=== PATIENT | female | born 1955 | race Caucasian/White ===

== ENCOUNTER 2017-04-23 10:59 | Emergency (ER) | payer BC ==
[~2017-04-23] VITALS: Ht 167.6 cm; Wt 90.7 kg
[~2017-04-23 10:59] MED LIST: AMBIEN10 MG; ASPIR 8181 MG; BENICAR5 MG; CYCLOBENZAPRINE10 MG PO; HYDROCODONE BIT1 T11 PO; LEVOFLOXACIN500 MG PO; LIPITOR10 MG; LOPID600 MG; Motrin,Rufen800 MG PO; OXYCODONE AND A1 TAB PO; OXYCONTIN10 MG PO; PROTONIX40 MG PO; VICODIN ES 7501 TA1; VICODIN ES 7501 TAB PO; ZETIA10 MG PO; [UNRECOGNIZED DRUG - OTHER] PO
[2017-04-23] MEDS ORDERED: CYCLOBENZAPRINE10 MG PO (11:11)
[2017-04-23] MEDS ORDERED: METFORMIN HCL500 MG PO (11:11)
[2017-04-23 12:40] LABS: BASO % 0.3 % (0.0-1.0); EOS # 0.2 10*3/uL (0.0-0.4); EOS % 1.6 % (1.0-4.0); HEMATOCRIT 37.5 % (37.0-47.0); HEMOGLOBIN 12.3 g/dl (12.0-16.0); IG # 0.2 10*3/uL (0.0-0.1); LYMPH # 1.9 10*3/uL (1.3-4.4); LYMPH % 20.5 % (27.0-41.0); MEAN CELL VOLUME 91.2 fl (81.0-99.0); MEAN CORPUSCULAR HGB 29.9 pg (27.0-31.0); MEAN CORPUSCULAR HGB CONC 32.8 g/dl (33.0-37.0); MEAN PLATELET VOLUME 10.4 fl (9.6-12.3); MONO # 0.4 10*3/uL (0.1-1.0); MONO % 4.1 % (3.0-9.0); NEUT # 6.6 10*3/uL (2.3-7.9); NEUT % 71.7 % (47.0-73.0); PLATELET COUNT AUTOMATED 229 10*3/uL (130-400); RED BLOOD COUNT 4.11 10*6/uL (4.10-5.10); RED CELL DISTRI WIDTH 14.8 % (0-14.5); WHITE BLOOD COUNT 9.2 10*3/uL (4.8-10.8)
[2017-04-23 12:57] LABS: ALBUMIN 3.8 gm/dl (3.1-4.5); ALKALINE PHOSPHATASE 80 U/L (45-117); BILIRUBIN, TOTAL 0.5 mg/dl (0.2-1.0); BUN 9 mg/dl (7-24); CARBON DIOXIDE 24 mmol/L (21-32); CHLORIDE 104 mmol/L (98-107); EST GLOM FILT AFRICAN AMERICAN > 60 ml/min; GLUCOSE 199 mg/dL (65-99); POTASSIUM 4.2 mmol/L (3.5-5.1); SGOT/AST 37 IU/L (3-35); SGPT/ALT 33 U/L (12-78); SODIUM 138 mmol/L (136-145); TOTAL PROTEIN 7.2 gm/dL (6.4-8.2)
[2017-04-23 12:59] LABS: TROPONIN I < 0.015 ng/ml (<0.045)
== END 2017-04-23 15:47 | disposition home or self-care (01) ==
LOC: ED 10:59
PROVIDERS: Emergency Medicine
DX: G89.29 Other chronic pain (principal); M54.5 Low back pain; M25.511 Pain in right shoulder; M25.512 Pain in left shoulder; M54.2 Cervicalgia; F17.200 Nicotine dependence, unspecified, uncomplicated; E11.9 Type 2 diabetes mellitus without complications; Z90.49 Acquired absence of other specified parts of digestive tract

== ENCOUNTER 2017-09-14 11:23 | Inpatient (IN) | payer BC ==
[~2017-09-14] VITALS: Ht 167.6 cm; Wt 95.5 kg
--- NOTE | ~2017-09-14 | CON ---
[place], [place] REPORT OF CONSULTATION NAME[id number] #: [id number] ROOM: 530 DOCTOR: JOSLYN PATRICKGITA BIRTHDATE: [birth year] DOS: 09/15/2017 GASTROENDOSCOPIC REPORT HISTORY OF PRESENT ILLNESS: This is a 62-year-old patient who has presented with a chief complaint of rectal pain and blood on stool and she diagnosed herself, it felt like when I used to have a rectal abscess. The patient was admitted. The patient has been started on Zosyn and vancomycin. She has had a panel of blood work, lactic acid has been 3.1. Comprehensive metabolic panel, electrolyte, liver all within normal limits. CBC, white blood cell was 10.9, H and H of 12 and 37. Chest x-ray, no radiologic pathology. Urinalysis was unremarkable. CT scan of the abdomen and pelvis, 4 mm nonobstructing right renal calculi totally unrelated pelvic wall. There was no thickening. There was no lymphadenopathy. Urinary bladder was normal. There was no ovarian cyst. There was no pathology mentioned. Lactic acid subsequently dropped to normal. Urine cultures remained unremarkable. Ultrasound of the abdomen again confirms fatty liver. PAST MEDICAL HISTORY: Associated hypertension, diabetes mellitus, COPD, DJD pains, neuropathy, renal calculi. PAST SURGICAL HISTORY: Right knee prosthesis. SOCIAL HISTORY: Aggressive smoker. Nonalcohol consumer. FAMILY HISTORY: Noncontributory. ALLERGIES: To no known medications. MEDICATIONS: Medication list has been reviewed. REVIEW OF SYSTEMS: HEENT: Denies double vision or blurred vision. RESPIRATORY: Denies acute shortness of breath. CARDIOVASCULAR: Denies chest pain. DIGESTIVE SYSTEM: No hematemesis, no hematochezia. Rectal pain temporarily from night. PHYSICAL EXAMINATION: GENERAL: Comfortable patient. HEENT: Head normocephalic, nontraumatic. Mouth and buccal mucosa benign. NECK: Supple, no thyromegaly, no cervical lymphadenopathy. CHEST: Symmetric anatomy, equal expansion. No wheeze, no rhonchi. HEART: Normal sinus rhythm, no gallop, no murmur. ABDOMEN: Soft. No hepato-organomegaly. Bowel sounds present. Slightly obese. EXTREMITIES: No cyanosis, no pedal edema. NEUROLOGIC: Alert, oriented to time, place, person. RECTAL: Examination does not yield any acute findings. There are no external hemorrhoids. I did not see any fissure. [place], [place] REPORT OF CONSULTATION NAME: CHRISTIANO JAIMES UNIT #: [id number] ROOM: 530 DOCTOR: JOSLYN PATRICK,GITA BIRTHDATE: [birth year] IMPRESSION: Rectal pain, etiology unknown. She has been carrying a history of old rectal abscess that she looks to it and she thought that she is similar to that, however, in view of the history of diabetes mellitus, coverage of antibiotic was undertaken. OTHER ADJUNCTIVE DIAGNOSES: Chronic obstructive pulmonary disease, hypertension, neuropathy, renal calculi, all has been recognized. At the present time, she has been started on Zosyn and vancomycin. This, we are going to be adjusting to metronidazole 500 mg q. 8 hours and after that, that can be continued as an outpatient with same prescription for 1 week extra and we are going to discontinue Zosyn and vancomycin coverage and organizing a colonoscopy as an outpatient. GITA JORGENSEN MD CM:CONSTR:REPORT OF CONSULTATION 1449 09/16/17 0452 interface
[~2017-09-14 11:23] MED LIST changes: -BENICAR5 MG; +BENICAR5 MG PO; +LOPID600 M1 PO; -LOPID600 MG; +METFORMIN HCL500 MG PO
[2017-09-14 11:34] VITALS: BP 129/81
[2017-09-14 12:23] LABS: BASO % 0.3 % (0.0-1.0); EOS # 0.2 10*3/uL (0.0-0.4); EOS % 1.7 % (1.0-4.0); HEMATOCRIT 37.4 % (37.0-47.0); LYMPH # 1.8 10*3/uL (1.3-4.4); LYMPH % 16.5 % (27.0-41.0); MEAN CORPUSCULAR HGB 28.6 pg (27.0-31.0); MEAN CORPUSCULAR HGB CONC 32.1 g/dl (33.0-37.0); MEAN PLATELET VOLUME 10.6 fl (9.6-12.3); MONO # 0.4 10*3/uL (0.1-1.0); MONO % 3.6 % (3.0-9.0); NEUT # 8.4 10*3/uL (2.3-7.9); PLATELET COUNT AUTOMATED 264 10*3/uL (130-400); RED CELL DISTRI WIDTH 14.7 % (0-14.5); WHITE BLOOD COUNT 10.9 10*3/uL (4.8-10.8)
[2017-09-14 12:41] LABS: ALKALINE PHOSPHATASE 103 U/L (45-117); BUN 14 mg/dl (7-24); CHLORIDE 103 mmol/L (98-107); CREATININE 0.86 mg/dL (0.55-1.02); POTASSIUM 4.4 mmol/L (3.5-5.1); SGOT/AST 52 IU/L (3-35); SGPT/ALT 44 U/L (12-78); SODIUM 137 mmol/L (136-145); TOTAL PROTEIN 7.7 gm/dL (6.4-8.2)
[2017-09-14 12:42] LABS: TROPONIN I < 0.015 ng/ml (<0.045)
[2017-09-14 14:15] LABS: BILIRUBIN NEGATIVE (NEGATIVE); BLOOD NEGATIVE (NEGATIVE); CLARITY CLEAR (CLEAR); COLOR YELLOW (YELLOW); GLUCOSE NEGATIVE (NEGATIVE); KETONE NEGATIVE (NEGATIVE); LEUKO ESTERASE TRACE (NEGATIVE); NITRITE NEGATIVE (NEGATIVE); UROBILINOGEN 0.2 E.U./dl (0.2-1.0)
[2017-09-14 14:23] LABS: BACTERIA TRACE; RBC 0-2 rbc/hpf (0-2)
--- NOTE | 2017-09-14 14:51 | NUR ---
PATIENT WITH ZOSYN AND SALINE INFUSIONG AT THE TIME OF ADMISSION
--- NOTE | 2017-09-14 15:17 | NUR ---
A 62, admitted to , under the services of LEONA Ji DO with a diagnosis of SEPTICEMIA, RECTAL ABCESS. Chief complaint is SEPTICEMIA RECTAL ABCESS. Patient arrived via bed from ER. Monitor applied. Initial assessment completed. Vital signs taken and recorded. LEONA JI DO notified of admission to the unit. Orders received. See assessment for past medical history, medications and allergies. Patient and/or family oriented to unit. [facility] visitation policy reviewed. Clothing/patient valuable form completed. GIANCARLO HODGES
[2017-09-14] MEDS ORDERED: NORCO 7.5-3251 EACH PO (15:43)
--- NOTE | 2017-09-14 16:00 | NUR ---
DR. OGDEN NOTIFIED OF COMPLETED MEDRX AND PT PUT ON ADA [address] OGDEN[address] NO OTHER ORDERS AT THIS TIME.
[2017-09-14 16:15] VITALS: BP 129/81
--- NOTE | 2017-09-14 17:16 | NUR ---
NOTIFIED OF NO ORDERS OF NOW. ORDERS COMING SOON PER DR. Ruiz
--- NOTE | 2017-09-14 17:58 | NUR ---
DR. JORGENSEN NOTIFIED OF CONSULT. NO NEW ORDERS AT THIS TIME. HE WILL BE IN TO SEE PT IN THE MORNING. HE STATED IF CBC IS FINE IN THE MORNING, HE WILL SEE ABOUT ANTIBIOTIC THERAPY OUTPT. WILL CONINUE TO MONITOR PT.
[2017-09-14 20:00] VITALS: BP 154/78
--- NOTE | 2017-09-14 20:20 | NUR ---
PT MEDICATED WITH MORPHINE FOR COMPLAINTS OF RECTAL PAIN. WILL CONTINUE TO MONITOR EFFECTIVENESS.
--- NOTE | 2017-09-14 20:40 | NUR ---
SPOKE WITH DR. RICH ABOUT A NICOTROL INHALER FOR PT, SHE IS A TWO PACK PER DAY SMOKER AND NOT TAKING ANY OTHER NICOTINE PRODUCTS.
[2017-09-15] VITALS: BP 105/56
--- NOTE | 2017-09-15 03:15 | NUR ---
PT MEDICATED WITH MORPHINE FOR C/O RECTAL PAIN. WILL MONITOR FOR EFFECTIVENESS
--- NOTE | 2017-09-15 03:45 | NUR ---
MEDICATION EFFECTIVE PER PT, ALSO STATED RELIEF FROM NEUROPATHY.
[2017-09-15 07:01] LABS: BASO % 0.4 % (0.0-1.0); EOS # 0.2 10*3/uL (0.0-0.4); EOS % 2.1 % (1.0-4.0); HEMATOCRIT 34.2 % (37.0-47.0); HEMOGLOBIN 10.9 g/dl (12.0-16.0); LYMPH # 2.1 10*3/uL (1.3-4.4); LYMPH % 25.9 % (27.0-41.0); MEAN CELL VOLUME 91.2 fl (81.0-99.0); MEAN CORPUSCULAR HGB 29.1 pg (27.0-31.0); MEAN CORPUSCULAR HGB CONC 31.9 g/dl (33.0-37.0); MEAN PLATELET VOLUME 10.5 fl (9.6-12.3); MONO # 0.3 10*3/uL (0.1-1.0); NEUT # 5.3 10*3/uL (2.3-7.9); NEUT % 66.3 % (47.0-73.0); PLATELET COUNT AUTOMATED 223 10*3/uL (130-400); RED BLOOD COUNT 3.75 10*6/uL (4.10-5.10); RED CELL DISTRI WIDTH 15.1 % (0-14.5); WHITE BLOOD COUNT 7.9 10*3/uL (4.8-10.8)
[2017-09-15 07:32] LABS: ALBUMIN 3.3 gm/dl (3.1-4.5); ALKALINE PHOSPHATASE 93 U/L (45-117); BUN 13 mg/dl (7-24); CHLORIDE 106 mmol/L (98-107); CHOLESTEROL 104 mg/dL (<200); CREATININE 0.84 mg/dL (0.55-1.02); HDL CHOLESTEROL 37 mg/dl (40-60); LDL CHOLESTEROL 30 mg/dL (9-159); PHOSPHOROUS 4.6 mg/dL (2.5-4.9); POTASSIUM 4.6 mmol/L (3.5-5.1); SGOT/AST 68 IU/L (3-35); SGPT/ALT 48 U/L (12-78); SODIUM 140 mmol/L (136-145); TOTAL PROTEIN 6.7 gm/dL (6.4-8.2); TRIGLYCERIDES 184 mg/dl (<150); VLDL CHOLESTEROL 37 mg/dL (6-40)
[2017-09-15 08:00] VITALS: BP 159/79
--- NOTE | 2017-09-15 09:46 | NUR ---
Kiln Car Unloader in to talk to patient. Patient states lives at home with . There are few steps in the home. Physician: philip borja [facility] Home health services: none Patient's level of ADLs: INDEPENDENT Patient has working utilities: all working DME: cane Follow-up physician's appointment after d/c: will be made by hospitalist nurse director upon discharge Does patient want to access PORTAL?: no Discharge plan discussed with patient, patient lives at home with , states she gets around fine, drives, patient states she has a cane to use if needed, patient states she will be going home when able and denies any home needs. PAULINA ALEXANDRE
[2017-09-15 12:00] VITALS: BP 147/68
[2017-09-15] MEDS ORDERED: FLAGYL500 MG PO (15:13)
--- NOTE | 2017-09-15 16:39 | NUR ---
Discharge instructions reviewed with patient/family. Patient receptive and verbalizes understanding. Follow-up care arranged. Written instructions given to patient/family. NANCI SONI
== END 2017-09-15 16:39 | disposition home or self-care (01) | DRG 872 ==
LOC: ED 11:23 → EDHOLD 14:10 → 5E 14:10
PROVIDERS: Hospitalist; Nurse Practitioner; ADMIT Emergency Medicine
DX: A41.9 Sepsis, unspecified organism (principal); E11.40 Type 2 diabetes mellitus with diabetic neuropathy, unspecified; K61.1 Rectal abscess; E11.65 Type 2 diabetes mellitus with hyperglycemia; R65.20 Severe sepsis without septic shock; M54.5 Low back pain; N20.0 Calculus of kidney; M19.90 Unspecified osteoarthritis, unspecified site; R10.9 Unspecified abdominal pain; G89.29 Other chronic pain; J44.9 Chronic obstructive pulmonary disease, unspecified; F17.210 Nicotine dependence, cigarettes, uncomplicated; I10 Essential (primary) hypertension; E78.5 Hyperlipidemia, unspecified; E66.9 Obesity, unspecified; M54.2 Cervicalgia; Z71.6 Tobacco abuse counseling; Z68.32 Body mass index [BMI] 32.0-32.9, adult

== ENCOUNTER 2018-01-25 02:09 | Inpatient (IN) | payer BC ==
[~2018-01-25] VITALS: Ht 167.6 cm; Wt 92.8 kg
[2018-01-25] VITALS (8 sets, daily range): BP systolic 123–153; BP diastolic 55–77
--- NOTE | ~2018-01-25 | CON ---
[place], [place] REPORT OF CONSULTATION [id number] UNIT #: [id number] ROOM: 428 DOCTOR: MARYANA AMBRIZ DPM BIRTHDATE: [birth year] DOS: 01/25/2018 SUBJECTIVE: Patient seen with chief complaint of elongated, thickened nails of both feet and red and tender feet, bilateral. The patient is a 63-year-old diabetic patient. PAST MEDICAL HISTORY: COPD, diabetes, essential primary hypertension, GERD, hepatic steatosis, hepatosplenomegaly, history of rectal abscess, hyperlipidemia, insomnia, lumbago, nephrolithiasis, neuropathy, obesity, onychomycosis, rectal abscess, tobacco abuse, uncontrolled diabetes and vitamin ____ deficiency. PAST SURGICAL HISTORY: Cervical polypectomy, section, cholecystectomy, colonoscopy, endometrial biopsy, hemorrhoidectomy and right knee replacement. SOCIAL HISTORY: History of smoking. Denies illicit drug use or social alcohol use. FAMILY HISTORY: Father of Alzheimer disease and colon cancer. Mother at age 71 of [place]. ALLERGIES: Denies. LOWER EXTREMITY EXAMINATION: Pedal pulses palpable. Decreased hair growth, nail thickening, pigmentary discoloration, temperature changes, edema, paresthesia and burning bilateral foot, tingling sensation bilateral, erythema and moccasin appearance plantar aspect bilateral foot extending interdigitally consistent with tinea pedis. Crumbly thickened yellow nails 1 through 5 bilateral causing discomfort. ASSESSMENT: Onychomycosis, tinea pedis, dermatitis bilateral foot, diabetes with peripheral vascular disease and diabetic neuropathy. PLAN: Evaluation and management. Debrided nails 1 through 5 bilateral. The patient is already on Lamisil and Lotrisone cream. Continue Lotrisone cream for 2 weeks and we will reassess the patient at the office in 2 weeks for followup of the tinea infection. MARYANA AMBRIZ DPM CM:CONSTR:REPORT OF CONSULTATION 1332 01/26/18 0245 interface
[~2018-01-25 02:09] MED LIST changes: +FLAGYL500 MG PO; +NORCO 7.5-3251 EACH PO
[2018-01-25 02:27] LABS: BILIRUBIN 1+ (NEGATIVE); BLOOD NEGATIVE (NEGATIVE); CLARITY SL CLOUDY (CLEAR); COLOR YELLOW (YELLOW); GLUCOSE NEGATIVE (NEGATIVE); KETONE TRACE (NEGATIVE); LEUKO ESTERASE 1+ (NEGATIVE); NITRITE NEGATIVE (NEGATIVE); UROBILINOGEN 0.2 E.U./dl (0.2-1.0)
[2018-01-25 02:41] LABS: BASO % 0.2 % (0.0-1.0); EOS # 0.2 10*3/uL (0.0-0.4); EOS % 1.2 % (1.0-4.0); HEMATOCRIT 37.8 % (37.0-47.0); HEMOGLOBIN 12.2 g/dl (12.0-16.0); LYMPH # 2.1 10*3/uL (1.3-4.4); LYMPH % 17.3 % (27.0-41.0); MEAN CELL VOLUME 84.8 fl (81.0-99.0); MEAN CORPUSCULAR HGB 27.4 pg (27.0-31.0); MEAN CORPUSCULAR HGB CONC 32.3 g/dl (33.0-37.0); MEAN PLATELET VOLUME 10.6 fl (9.6-12.3); MONO # 0.6 10*3/uL (0.1-1.0); MONO % 4.9 % (3.0-9.0); NEUT # 9.2 10*3/uL (2.3-7.9); NEUT % 75.6 % (47.0-73.0); PLATELET COUNT AUTOMATED 276 10*3/uL (130-400); RED BLOOD COUNT 4.46 10*6/uL (4.10-5.10); RED CELL DISTRI WIDTH 14.7 % (0-14.5); WHITE BLOOD COUNT 12.1 10*3/uL (4.8-10.8)
[2018-01-25 02:51] LABS: EPITHELIAL CELLS 40-45
[2018-01-25 02:52] LABS: BACTERIA 1+; WBC 16-20 wbc/hpf (0-5)
[2018-01-25 03:00] LABS: ALBUMIN 3.8 gm/dl (3.1-4.5); ALKALINE PHOSPHATASE 89 U/L (45-117); BUN 13 mg/dl (7-24); CHLORIDE 105 mmol/L (98-107); CREATININE 0.83 mg/dL (0.55-1.02); LIPASE 304 U/L (73-393); POTASSIUM 3.8 mmol/L (3.5-5.1); SGOT/AST 20 IU/L (3-35); SGPT/ALT 26 U/L (12-78); SODIUM 137 mmol/L (136-145); TOTAL PROTEIN 7.2 gm/dL (6.4-8.2)
[2018-01-25 05:44] LABS: CHOLESTEROL 116 mg/dL (<200); HDL CHOLESTEROL 32 mg/dl (40-60); LDL CHOLESTEROL 40 mg/dL (9-159); PHOSPHOROUS 3.7 mg/dL (2.5-4.9); TRIGLYCERIDES 221 mg/dl (<150); VLDL CHOLESTEROL 44 mg/dL (6-40)
[2018-01-25 05:45] LABS: TROPONIN I < 0.015 ng/ml (<0.045)
[2018-01-25 05:50] LABS: THYROID STIM HORMONE (HS) 0.638 uIU/ml (0.358-4.75)
[2018-01-25 07:01] LABS: VITAMIN D, 25-HYDROXY 13.9 ng/mL (30-100)
[2018-01-26] VITALS: BP 121/50
[2018-01-26 08:00] VITALS: BP 144/66
[2018-01-26] MEDS ORDERED: ATHLETE'S FOOT15 GM T (10:40)
[2018-01-26] MEDS ORDERED: VITAMIN D-32000 UNI1 PO (10:40)
[2018-01-26] MEDS ORDERED: Aquaphor T (10:40)
[2018-01-26] MEDS ORDERED: NEURONTIN300 MG PO (10:40)
[2018-01-26] MEDS ORDERED: CIPRO500 MG PO (10:41)
== END 2018-01-26 11:40 | disposition home or self-care (01) | DRG 872 ==
LOC: ED 02:09 → 4E 03:58 → EDHOLD 03:58 → 4E 05:22
PROVIDERS: Emergency Medicine Emergency Medical Services; Internal Medicine
PROC: 0HBRXZZ Excision of Toe Nail, External Approach (ICD-10-PCS; principal; 2018-01-25)
DX: A41.9 Sepsis, unspecified organism (principal); E87.2 Acidosis; E11.40 Type 2 diabetes mellitus with diabetic neuropathy, unspecified; E11.51 Type 2 diabetes mellitus with diabetic peripheral angiopathy without gangrene; R16.2 Hepatomegaly with splenomegaly, not elsewhere classified; N39.0 Urinary tract infection, site not specified; E11.65 Type 2 diabetes mellitus with hyperglycemia; K76.0 Fatty (change of) liver, not elsewhere classified; B35.1 Tinea unguium; B35.3 Tinea pedis; D72.810 Lymphocytopenia; J44.9 Chronic obstructive pulmonary disease, unspecified; R65.20 Severe sepsis without septic shock; N20.0 Calculus of kidney; E86.0 Dehydration; K64.4 Residual hemorrhoidal skin tags; I10 Essential (primary) hypertension; G89.29 Other chronic pain; E78.5 Hyperlipidemia, unspecified; E53.8 Deficiency of other specified B group vitamins; M54.5 Low back pain; K21.9 Gastro-esophageal reflux disease without esophagitis; G47.00 Insomnia, unspecified; L30.9 Dermatitis, unspecified; Z96.651 Presence of right artificial knee joint; E66.9 Obesity, unspecified; Z79.84 Long term (current) use of oral hypoglycemic drugs; Z71.6 Tobacco abuse counseling; Z79.899 Other long term (current) drug therapy; Z90.49 Acquired absence of other specified parts of digestive tract; Z98.51 Tubal ligation status; Z82.49 Family history of ischemic heart disease and other diseases of the circulatory system; Z80.0 Family history of malignant neoplasm of digestive organs; Z82.0 Family history of epilepsy and other diseases of the nervous system; Z68.32 Body mass index [BMI] 32.0-32.9, adult

== ENCOUNTER 2018-03-15 22:11 | Inpatient (IN) | payer BC ==
[~2018-03-15] VITALS: Ht 167.6 cm; Wt 90.7 kg
[~2018-03-15 22:11] MED LIST changes: +ATHLETE'S FOOT15 GM T; +Aquaphor T; +CIPRO500 MG PO; +NEURONTIN300 MG PO; +VITAMIN D-32000 UNI1 PO
[2018-03-15 22:18] VITALS: BP 161/74
[2018-03-15 22:59] LABS: BASO % 0.3 % (0.0-1.0); EOS # 0.2 10*3/uL (0.0-0.4); EOS % 1.2 % (1.0-4.0); HEMATOCRIT 40.3 % (37.0-47.0); HEMOGLOBIN 12.4 g/dl (12.0-16.0); LYMPH # 2.8 10*3/uL (1.3-4.4); LYMPH % 20.4 % (27.0-41.0); MEAN CELL VOLUME 87.2 fl (81.0-99.0); MEAN CORPUSCULAR HGB 26.8 pg (27.0-31.0); MEAN CORPUSCULAR HGB CONC 30.8 g/dl (33.0-37.0); MEAN PLATELET VOLUME 10.8 fl (9.6-12.3); MONO # 0.6 10*3/uL (0.1-1.0); MONO % 4.4 % (3.0-9.0); NEUT % 72.7 % (47.0-73.0); PLATELET COUNT AUTOMATED 319 10*3/uL (130-400); RED BLOOD COUNT 4.62 10*6/uL (4.10-5.10); RED CELL DISTRI WIDTH 15.7 % (0-14.5); WHITE BLOOD COUNT 13.8 10*3/uL (4.8-10.8)
[2018-03-15 23:17] LABS: ALKALINE PHOSPHATASE 102 U/L (45-117); BUN 11 mg/dl (7-24); CHLORIDE 106 mmol/L (98-107); CREATININE 0.91 mg/dL (0.55-1.02); LIPASE 435 U/L (73-393); SGOT/AST 20 IU/L (3-35); SGPT/ALT 30 U/L (12-78); SODIUM 139 mmol/L (136-145)
[2018-03-15 23:18] LABS: TROPONIN I < 0.015 ng/ml (<0.045)
[2018-03-15 23:24] LABS: URINE AMPHETAMINES < 1000 (1000ng/ml); URINE BARBITURATES < 200 (200ng/ml); URINE BENZODIAZEPINES < 200 (200ng/ml); URINE CANNABINOIDS (THC) < 50 (50ng/ml); URINE COCAINE < 300 (300ng/ml); URINE METHADONE < 300 (300ng/ml); URINE OPIATES < 300 (300ng/ml)
[2018-03-15 23:25] LABS: URINE PHENCYCLIDINE < 25 (25ng/ml)
[2018-03-16] VITALS (8 sets, daily range): BP systolic 117–157; BP diastolic 44–67
[2018-03-16 01:55] LABS: BILIRUBIN NEGATIVE (NEGATIVE); BLOOD NEGATIVE (NEGATIVE); CLARITY SL CLOUDY (CLEAR); COLOR YELLOW (YELLOW); GLUCOSE NEGATIVE (NEGATIVE); KETONE 1+ (NEGATIVE); LEUKO ESTERASE 2+ (NEGATIVE); NITRITE NEGATIVE (NEGATIVE); PH 5.5 (5.0-9.0); UROBILINOGEN 0.2 E.U./dl (0.2-1.0)
[2018-03-16 02:05] LABS: BACTERIA 2+; EPITHELIAL CELLS TNTC; WBC 21-30 wbc/hpf (0-5)
[2018-03-16] MEDS ORDERED: VICODIN ES 7.51 EACH PO (02:59)
[2018-03-16] MEDS ORDERED: OMEPRAZOLE40 MG PO (04:13)
[2018-03-16 06:35] LABS: BASO % 0.4 % (0.0-1.0); EOS # 0.2 10*3/uL (0.0-0.4); EOS % 1.8 % (1.0-4.0); HEMOGLOBIN 10.4 g/dl (12.0-16.0); LYMPH # 2.2 10*3/uL (1.3-4.4); LYMPH % 24.7 % (27.0-41.0); MEAN CELL VOLUME 88.3 fl (81.0-99.0); MEAN CORPUSCULAR HGB 26.9 pg (27.0-31.0); MEAN CORPUSCULAR HGB CONC 30.5 g/dl (33.0-37.0); MEAN PLATELET VOLUME 11.1 fl (9.6-12.3); MONO # 0.4 10*3/uL (0.1-1.0); MONO % 4.6 % (3.0-9.0); NEUT % 67.4 % (47.0-73.0); PLATELET COUNT AUTOMATED 241 10*3/uL (130-400); RED BLOOD COUNT 3.86 10*6/uL (4.10-5.10); RED CELL DISTRI WIDTH 15.7 % (0-14.5); WHITE BLOOD COUNT 8.9 10*3/uL (4.8-10.8)
[2018-03-16 06:43] LABS: HEMATOCRIT 34.1 % (37.0-47.0)
[2018-03-16 07:01] LABS: CHLORIDE 110 mmol/L (98-107); POTASSIUM 3.9 mmol/L (3.5-5.1); SODIUM 142 mmol/L (136-145)
[2018-03-16 07:13] LABS: ALBUMIN 3.3 gm/dl (3.1-4.5); ALKALINE PHOSPHATASE 86 U/L (45-117); BUN 12 mg/dl (7-24); CHOLESTEROL 70 mg/dL (<200); CREATININE 0.72 mg/dL (0.55-1.02); HDL CHOLESTEROL 26 mg/dl (40-60); LDL CHOLESTEROL 16 mg/dL (9-159); SGOT/AST 21 IU/L (3-35); SGPT/ALT 26 U/L (12-78); TOTAL PROTEIN 6.4 gm/dL (6.4-8.2); TRIGLYCERIDES 138 mg/dl (<150); VLDL CHOLESTEROL 28 mg/dL (6-40)
[2018-03-16 07:29] LABS: PHOSPHOROUS 3.6 mg/dL (2.5-4.9)
[2018-03-16 07:31] LABS: VITAMIN D, 25-HYDROXY 32.1 ng/mL (30-100)
[2018-03-17] VITALS: BP 130/50
[2018-03-17 08:00] VITALS: BP 105/62; BP 153/63
[2018-03-17 08:38] LABS: BUN 9 mg/dl (7-24); CHLORIDE 107 mmol/L (98-107); POTASSIUM 4.2 mmol/L (3.5-5.1); SODIUM 141 mmol/L (136-145)
[2018-03-17 12:00] VITALS: BP 151/62
[2018-03-17] MEDS ORDERED: GLYBURIDE1.5 MG PO (13:17)
[2018-03-17] MEDS ORDERED: CIPRO500 MG PO (13:17)
[2018-03-17] MEDS ORDERED: BENICAR20 MG PO (13:17)
[2018-03-17] MEDS ORDERED: B12,B-12,B 12500 MC1 PO (13:17)
== END 2018-03-17 14:59 | disposition home or self-care (01) | DRG 872 ==
LOC: ED 22:11 → EDHOLD 03-16 02:25 → 5E 03-16 02:25
PROVIDERS: Emergency Medicine Emergency Medical Services; Internal Medicine; Internal Medicine Hospice and Palliative Medicine
DX: A41.9 Sepsis, unspecified organism (principal); E11.40 Type 2 diabetes mellitus with diabetic neuropathy, unspecified; N39.0 Urinary tract infection, site not specified; E11.65 Type 2 diabetes mellitus with hyperglycemia; D72.810 Lymphocytopenia; N20.0 Calculus of kidney; R65.20 Severe sepsis without septic shock; R10.9 Unspecified abdominal pain; R79.82 Elevated C-reactive protein (CRP); E66.9 Obesity, unspecified; J44.9 Chronic obstructive pulmonary disease, unspecified; I10 Essential (primary) hypertension; E78.5 Hyperlipidemia, unspecified; Z96.651 Presence of right artificial knee joint; M54.42 Lumbago with sciatica, left side; M54.41 Lumbago with sciatica, right side; K64.4 Residual hemorrhoidal skin tags; E53.8 Deficiency of other specified B group vitamins; E55.9 Vitamin D deficiency, unspecified; K21.9 Gastro-esophageal reflux disease without esophagitis; G47.00 Insomnia, unspecified; Z71.6 Tobacco abuse counseling; Z72.0 Tobacco use; Z87.440 Personal history of urinary (tract) infections; Z90.49 Acquired absence of other specified parts of digestive tract; Z98.51 Tubal ligation status; Z82.49 Family history of ischemic heart disease and other diseases of the circulatory system; Z82.0 Family history of epilepsy and other diseases of the nervous system; Z80.0 Family history of malignant neoplasm of digestive organs; Z79.899 Other long term (current) drug therapy; Z68.32 Body mass index [BMI] 32.0-32.9, adult; Z79.84 Long term (current) use of oral hypoglycemic drugs

== ENCOUNTER 2018-09-11 07:19 | Inpatient (IN) | payer MEDICARE, BC ==
[2018-09-11] VITALS (8 sets, daily range): BP systolic 113–148; BP diastolic 37–97
[~2018-09-11] VITALS: Ht 167.6 cm; Wt 93.9 kg
--- NOTE | ~2018-09-11 | PROC NOTE ---
[place], [place] PROCEDURE NOTE [id number] UN[facility] #: [id number] ROOM: 412 DOCTOR: GITA JORGENSEN MD BIRTHDATE: [birth year] DOS: 09/12/2018 INDICATIONS: The patient has presented with anemia, undergoing investigation, blood on stool. PROCEDURE: Today's procedure part of investigation is colonoscopy. PREMEDICATION: Propofol. SCOPE: Olympus forward-viewing colonoscope 10L video. REPORT: After putting the patient in left lateral position and application of lubricant to the scope, the scope was introduced; thereafter, under direct visualization, I advanced through the length of colon without difficulty. Colon mucosa and vascularity was carefully examined. Base of the cecum explored, appendiceal orifice identified, ileocecal valve was defined. No acute pathology seen otherwise. Air was suctioned out. The patient was extubated and tolerated the procedure well. IMPRESSION: Normal colonoscopic examination. PLAN: High fiber diet. ACTIVITY: Ad armin. FOLLOWUP: As outpatient. The cause of the anemia is not in the colon. GITA JORGENSEN MD CM:PROCNOTE:PROCEDURE NOTE [id number] GITA JORGENSEN MD
--- NOTE | ~2018-09-11 | CON ---
[place], [place] REPORT OF CONSULTATION NAME: CHRISTIANO JAIMES UNIT #: [id number] ROOM: 412 DOCTOR: JOSLYN PATRICKGITA BIRTHDATE: [birth year] DOS: 09/12/2018 GASTROENDOSCOPIC REPORT HISTORY OF PRESENT ILLNESS: The patient is 63 years old who has presented with nonspecific abdominal pain, complaining that she has seen blood in the stool and she had a white blood cells of 10, borderline H of 10 and 34, microcytic indices. Her INR was 1.1. Comprehensive metabolic panel, BUN and creatinine 16 and 0.9. Electrolytes were balanced. Liver function test normal. CT scan of the abdomen and pelvis was done, nonobstructing right renal stone, fatty liver. H and H dropped to 9.9 and 33. Urine culture, no growth. I was called for colonoscopy. PAST MEDICAL HISTORY: GI bleed, COPD, hypertension, hepatic steatosis, hepatosplenomegaly. PAST SURGICAL HISTORY: Cholecystectomy, , endometrial biopsies, hemorrhoidectomy, right knee prosthesis, cervical polypectomy. SOCIAL HISTORY: Smoker and social alcohol consumer. FAMILY HISTORY: Noncontributory. ALLERGIES: Allergies to no known medications. MEDICATIONS: List reviewed. REVIEW OF SYSTEMS: HEENT: Denies double vision, blurred vision. RESPIRATORY: Denies acute shortness of breath; however, chronically short of breath, cough. DIGESTIVE: No hematemesis, some blood on the stool, toilet tissue. PHYSICAL EXAMINATION: VITAL SIGNS: Stable. HEENT: Head normocephalic, nontraumatic. Mouth and buccal mucosa benign. NECK: Supple. No thyromegaly, no cervical lymphadenopathy. CHEST: Symmetric anatomy, COPD pattern. Decreased air entry in general. HEART: Normal sinus rhythm, no gallop, no murmur. ABDOMEN: Soft. No hepato-organomegaly. Bowel sounds present. No pulsatile mass. EXTREMITIES: No cyanosis, no pedal edema. NEUROLOGIC: Alert, oriented to time, place, and person. LABORATORY DATA: Reviewed. Records reviewed. IMPRESSION: Blood in stool, anemia. PLAN: We are going to proceed with colonoscopic evaluation for microcytic anemia. [place], [place] REPORT OF CONSULTATION NAME: CHRISTIANO JAIMES UNIT #: [id number] ROOM: [facility] DOCTOR: GITA JORGENSEN MD BIRTHDATE: [birth year] GITA JORGENSEN MD CM:CONSTR:REPORT OF CONSULTATION 1553 09/13/18 0212 interface
[~2018-09-11 07:19] MED LIST changes: +B12,B-12,B 12500 MC1 PO; +BENICAR20 MG PO; +CHLORZOXAZONE500 M2 PO; +GLYBURIDE1.5 MG PO; +OMEPRAZOLE40 MG PO; +PREDNISONE10 MG PO; +VICODIN ES 7.51 EACH PO
[2018-09-11 07:55] LABS: BASO # 0.1 10*3/uL (0.0-0.1); BASO % 0.4 % (0.0-1.0); EOS # 0.4 10*3/uL (0.0-0.4); EOS % 3.3 % (1.0-4.0); HEMATOCRIT 34.6 % (37.0-47.0); HEMOGLOBIN 10.8 g/dl (12.0-16.0); LYMPH # 2.1 10*3/uL (1.3-4.4); LYMPH % 17.4 % (27.0-41.0); MEAN CELL VOLUME 81.6 fl (81.0-99.0); MEAN CORPUSCULAR HGB 25.5 pg (27.0-31.0); MEAN CORPUSCULAR HGB CONC 31.2 g/dl (33.0-37.0); MEAN PLATELET VOLUME 10.8 fl (9.6-12.3); MONO # 0.5 10*3/uL (0.1-1.0); MONO % 3.8 % (3.0-9.0); NEUT # 8.9 10*3/uL (2.3-7.9); NEUT % 73.8 % (47.0-73.0); PLATELET COUNT AUTOMATED 284 10*3/uL (130-400); RED BLOOD COUNT 4.24 10*6/uL (4.10-5.10); RED CELL DISTRI WIDTH 16.9 % (0-14.5)
[2018-09-11 08:04] LABS: ACT PARTIAL THROMBO TIME 26.8 SECONDS (20.8-31.5)
[2018-09-11 08:13] LABS: ALBUMIN 3.6 gm/dl (3.1-4.5); ALKALINE PHOSPHATASE 97 U/L (45-117); BUN 16 mg/dl (7-24); CHLORIDE 106 mmol/L (98-107); CREATININE 0.97 mg/dL (0.55-1.02); POTASSIUM 3.9 mmol/L (3.5-5.1); SGOT/AST 32 IU/L (3-35); SGPT/ALT 26 U/L (12-78); SODIUM 137 mmol/L (136-145); TOTAL PROTEIN 7.4 gm/dL (6.4-8.2)
[2018-09-11 08:15] LABS: BILIRUBIN NEGATIVE (NEGATIVE); BLOOD NEGATIVE (NEGATIVE); CLARITY SL CLOUDY (CLEAR); COLOR YELLOW (YELLOW); GLUCOSE NEGATIVE (NEGATIVE); KETONE NEGATIVE (NEGATIVE); LEUKO ESTERASE 1+ (NEGATIVE); NITRITE NEGATIVE (NEGATIVE); PH 5.5 (5.0-9.0); UROBILINOGEN 0.2 E.U./dl (0.2-1.0)
[2018-09-11 08:26] LABS: BACTERIA 1+; EPITHELIAL CELLS 20-25; WBC 21-30 wbc/hpf (0-5)
[2018-09-11 08:27] LABS: YEAST 1+
[2018-09-11] MEDS ORDERED: ZETIA10 MG PO (08:41)
[2018-09-11] MEDS ORDERED: BENICAR5 MG PO (08:41)
[2018-09-11] MEDS ORDERED: LOPID600 M1 PO (08:42)
[2018-09-11] MEDS ORDERED: METFORMIN HYDR500 MG PO (08:42)
[2018-09-11] MEDS ORDERED: GLYBURIDE5 MG PO (08:43)
[2018-09-11] MEDS ORDERED: OXYCODONE HCL5 MG PO (08:43)
[2018-09-11] MEDS ORDERED: ASPIRIN81 M1 PO (08:43)
[2018-09-11] MEDS ORDERED: METOPROLOL TART50 M1 PO (08:44)
[2018-09-12] VITALS (8 sets, daily range): BP systolic 107–141; BP diastolic 53–81
[2018-09-12 06:37] LABS: BASO % 0.2 % (0.0-1.0); EOS # 0.3 10*3/uL (0.0-0.4); EOS % 3.9 % (1.0-4.0); HEMATOCRIT 33.2 % (37.0-47.0); HEMOGLOBIN 9.9 g/dl (12.0-16.0); LYMPH # 1.5 10*3/uL (1.3-4.4); LYMPH % 18.1 % (27.0-41.0); MEAN CELL VOLUME 83.2 fl (81.0-99.0); MEAN CORPUSCULAR HGB 24.8 pg (27.0-31.0); MEAN CORPUSCULAR HGB CONC 29.8 g/dl (33.0-37.0); MEAN PLATELET VOLUME 11.1 fl (9.6-12.3); MONO # 0.4 10*3/uL (0.1-1.0); MONO % 5.2 % (3.0-9.0); NEUT # 5.8 10*3/uL (2.3-7.9); NEUT % 71.2 % (47.0-73.0); PLATELET COUNT AUTOMATED 257 10*3/uL (130-400); RED BLOOD COUNT 3.99 10*6/uL (4.10-5.10); RED CELL DISTRI WIDTH 16.8 % (0-14.5); WHITE BLOOD COUNT 8.1 10*3/uL (4.8-10.8)
[2018-09-12 06:46] LABS: ALBUMIN 3.3 gm/dl (3.1-4.5); ALKALINE PHOSPHATASE 88 U/L (45-117); BUN 14 mg/dl (7-24); CHLORIDE 109 mmol/L (98-107); CHOLESTEROL 99 mg/dL (<200); CREATININE 0.73 mg/dL (0.55-1.02); HDL CHOLESTEROL 30 mg/dl (40-60); LDL CHOLESTEROL 41 mg/dL (9-159); PHOSPHOROUS 4.3 mg/dL (2.5-4.9); POTASSIUM 3.9 mmol/L (3.5-5.1); SGOT/AST 52 IU/L (3-35); SGPT/ALT 35 U/L (12-78); SODIUM 141 mmol/L (136-145); TRIGLYCERIDES 140 mg/dl (<150); VLDL CHOLESTEROL 28 mg/dL (6-40)
[2018-09-12 08:15] LABS: VITAMIN D, 25-HYDROXY 38.8 ng/mL (30-100)
[2018-09-13] VITALS: BP 111/63
[2018-09-13 08:00] VITALS: BP 158/64
[2018-09-13 08:01] LABS: BASO % 0.4 % (0.0-1.0); EOS # 0.3 10*3/uL (0.0-0.4); EOS % 3.6 % (1.0-4.0); HEMATOCRIT 32.4 % (37.0-47.0); LYMPH # 1.9 10*3/uL (1.3-4.4); LYMPH % 24.5 % (27.0-41.0); MEAN CELL VOLUME 81.6 fl (81.0-99.0); MEAN CORPUSCULAR HGB 25.2 pg (27.0-31.0); MEAN CORPUSCULAR HGB CONC 30.9 g/dl (33.0-37.0); MEAN PLATELET VOLUME 9.9 fl (9.6-12.3); MONO # 0.4 10*3/uL (0.1-1.0); MONO % 5.2 % (3.0-9.0); NEUT % 65.1 % (47.0-73.0); PLATELET COUNT AUTOMATED 237 10*3/uL (130-400); RED BLOOD COUNT 3.97 10*6/uL (4.10-5.10); RED CELL DISTRI WIDTH 16.9 % (0-14.5); WHITE BLOOD COUNT 7.7 10*3/uL (4.8-10.8)
[2018-09-13 12:00] VITALS: BP 135/59
== END 2018-09-13 16:13 | disposition home or self-care (01) | DRG 872 ==
LOC: ED 07:19 → EDHOLD 10:07 → 4E 10:07
PROVIDERS: Emergency Medicine; Internal Medicine; Registered Nurse
PROC: 0DJD8ZZ Inspection of Lower Intestinal Tract, Via Natural or Artificial Opening Endoscopic (ICD-10-PCS; principal; 2018-09-12)
DX: A41.9 Sepsis, unspecified organism (principal); K92.1 Melena; N30.00 Acute cystitis without hematuria; K92.2 Gastrointestinal hemorrhage, unspecified; J44.9 Chronic obstructive pulmonary disease, unspecified; Z96.651 Presence of right artificial knee joint; I10 Essential (primary) hypertension; E78.2 Mixed hyperlipidemia; E11.65 Type 2 diabetes mellitus with hyperglycemia; E11.42 Type 2 diabetes mellitus with diabetic polyneuropathy; K76.0 Fatty (change of) liver, not elsewhere classified; D64.9 Anemia, unspecified; E66.9 Obesity, unspecified; K21.9 Gastro-esophageal reflux disease without esophagitis; Z79.82 Long term (current) use of aspirin; Z79.84 Long term (current) use of oral hypoglycemic drugs; Z87.440 Personal history of urinary (tract) infections; Z98.891 History of uterine scar from previous surgery; Z90.49 Acquired absence of other specified parts of digestive tract; Z98.51 Tubal ligation status; Z83.3 Family history of diabetes mellitus; Z82.49 Family history of ischemic heart disease and other diseases of the circulatory system; Z80.0 Family history of malignant neoplasm of digestive organs; Z72.0 Tobacco use; Z71.6 Tobacco abuse counseling; Z68.33 Body mass index [BMI] 33.0-33.9, adult; D50.0 Iron deficiency anemia secondary to blood loss (chronic)

== ENCOUNTER 2018-10-11 12:50 | Inpatient (IN) | payer MEDICARE, BC ==
--- NOTE | ~2018-10-11 | CON ---
[place], [place] REPORT OF CONSULTATION NAME: CHRISTIANO JAIMES [facility] #: [id number] UNIT #: [id number] ROOM: 406 DOCTOR: MARYANA AMBRIZ DPM BIRTHDATE: [birth year] DOS: 10/13/2018 SUBJECTIVE: The patient presents as a 63-year-old diabetic patient with dry skin to both feet and for nail care. PAST MEDICAL HISTORY: Chronic back pain, COPD, essential hypertension, external hemorrhoids, GERD, GI bleed, hemorrhoids, hepatic steatosis, history of rectal abscess, hyperlipidemia, insomnia, intractable abdominal pain, nephrolithiasis, neuropathy, tobacco abuse, type 2 diabetes, hyperglycemia, vitamin B12 deficiency, vitamin D deficiency. PAST SURGICAL HISTORY: Cervical polypectomy, section, cholecystectomy, colonoscopy, endometrial biopsy, hemorrhoidectomy, right knee replacement. SOCIAL HISTORY: Denies illicit drug use. Social alcohol use, smoker. FAMILY HISTORY: Father of Alzheimer disease, colon cancer. Mother at age 71 of [place]. ALLERGIES: No known allergies. PHYSICAL EXAMINATION: LOWER EXTREMITY EXAMINATION: Pedal pulses palpable. Decreased hair growth, nail thickening, pigmentary discoloration, edema, temperature changes bilateral, crumbly thickened yellow nails 1 through 5 bilateral with dystrophy, dry and cracked xerotic skin to bilateral foot. ASSESSMENT: Diabetes with peripheral vascular disease, onychomycosis, xerosis to bilateral lower extremity. PLAN: Evaluation and management. Debrided nails 1 through 5 bilateral. Ordered Lac-Hydrin lotion, apply daily and we will reappoint for followup on outpatient basis. Thank you for the consultation. MARYANA AMBRIZ DPM CM:CONSTR:REPORT OF CONSULTATION 1050 10/13/18 1125 interface
[2018-10-11 12:50] VITALS: BP 165/76
[~2018-10-11 12:50] MED LIST changes: +AMBIEN10 M1 PO; -AMBIEN10 MG; +ASPIRIN81 M1 PO; +GLYBURIDE5 MG PO; +METFORMIN HYDR500 MG PO; +METOPROLOL TART50 M1 PO; +OXYCODONE HCL5 MG PO
[2018-10-11 13:57] LABS: BASO # 0.1 10*3/uL (0.0-0.1); BASO % 0.5 % (0.0-1.0); EOS # 0.2 10*3/uL (0.0-0.4); EOS % 1.8 % (1.0-4.0); HEMATOCRIT 39.2 % (37.0-47.0); HEMOGLOBIN 11.9 g/dl (12.0-16.0); LYMPH # 2.3 10*3/uL (1.3-4.4); LYMPH % 17.4 % (27.0-41.0); MEAN CELL VOLUME 81.3 fl (81.0-99.0); MEAN CORPUSCULAR HGB 24.7 pg (27.0-31.0); MEAN CORPUSCULAR HGB CONC 30.4 g/dl (33.0-37.0); MEAN PLATELET VOLUME 10.7 fl (9.6-12.3); MONO # 0.6 10*3/uL (0.1-1.0); MONO % 4.3 % (3.0-9.0); NEUT # 9.8 10*3/uL (2.3-7.9); NEUT % 74.8 % (47.0-73.0); PLATELET COUNT AUTOMATED 363 10*3/uL (130-400); RED BLOOD COUNT 4.82 10*6/uL (4.10-5.10); RED CELL DISTRI WIDTH 16.6 % (0-14.5); WHITE BLOOD COUNT 13.2 10*3/uL (4.8-10.8)
[2018-10-11 14:05] LABS: BILIRUBIN NEGATIVE (NEGATIVE); BLOOD NEGATIVE (NEGATIVE); CLARITY SL CLOUDY (CLEAR); COLOR YELLOW (YELLOW); GLUCOSE NEGATIVE (NEGATIVE); KETONE NEGATIVE (NEGATIVE); LEUKO ESTERASE 1+ (NEGATIVE); NITRITE NEGATIVE (NEGATIVE); SPECIFIC GRAVITY 1.025 (1.005-1.030); UROBILINOGEN 0.2 E.U./dl (0.2-1.0)
[2018-10-11 14:11] LABS: ALKALINE PHOSPHATASE 93 U/L (45-117); BUN 14 mg/dl (7-24); CHLORIDE 105 mmol/L (98-107); CREATININE 0.87 mg/dL (0.55-1.02); SGOT/AST 49 IU/L (3-35); SGPT/ALT 35 U/L (12-78); SODIUM 141 mmol/L (136-145); TOTAL PROTEIN 7.9 gm/dL (6.4-8.2)
[2018-10-11 14:21] LABS: BACTERIA TRACE; EPITHELIAL CELLS 25-30; WBC 21-30 wbc/hpf (0-5)
[2018-10-11 14:56] VITALS: BP 151/57
[2018-10-11 16:36] VITALS: BP 127/63
--- NOTE | 2018-10-11 16:39 | NUR ---
[facility] 63, [facility] , under the services of CHE Bullard DO with a diagnosis of UTI. Chief complaint is PAIN. Patient arrived via bed from ER. Monitor applied. Initial assessment completed. Vital signs taken and recorded. CHE BULLARD DO notified of admission to the unit. Orders received. See assessment for past medical history, medications and allergies. Patient and/or family oriented to unit. [facility] visitation policy reviewed. Clothing/patient valuable form completed. SNEHA ELDRIDGE
--- NOTE | 2018-10-11 16:44 | NUR ---
MORPHINE GIVEN FOR C/O BACK/RECTAL PAIN. RATES 10/10 ON PAIN SCALE. WILL MONITOR.
--- NOTE | 2018-10-11 17:43 | NUR ---
DR. FONTANEZ'S ANSWERING SERVICE NOTIFIED OF CONSULT.
--- NOTE | 2018-10-11 17:45 | NUR ---
MORPHINE EFFECTIVE PER PT.
[2018-10-11 20:00] VITALS: BP 122/53
--- NOTE | 2018-10-11 21:45 | NUR ---
NOTIFIED OF PATIENT'S REQUEST FOR HOME GABAPENTIN. PATIENT IS C/O NEUROPATHY IN FINGERS/FEET. AWARE THAT HOME MED REC IS UP TO DATE AND THAT HOME MEDS HAVE NOT BEEN ORDERED. DISCUSSED PATIENT'S HX OF DM AND PO MEDS ON MED REC. NEW ORDERS TO FOLLOW.
--- NOTE | 2018-10-11 22:46 | NUR ---
CALLED IN REGARDING CONSULT. INSTRUCTED TO KEEP PT NPO AFTER BREAKFAST. STATES HE WILL SEE HER.
[2018-10-12] VITALS: BP 123/53
--- NOTE | 2018-10-12 05:01 | NUR ---
NOTIFIED THAT MED REC UP TO DATE AND HOME MEDS NOT ORDERED.
[2018-10-12 07:06] LABS: BASO % 0.4 % (0.0-1.0); EOS # 0.2 10*3/uL (0.0-0.4); EOS % 2.5 % (1.0-4.0); LYMPH # 1.8 10*3/uL (1.3-4.4); LYMPH % 26.4 % (27.0-41.0); MEAN CELL VOLUME 81.7 fl (81.0-99.0); MEAN CORPUSCULAR HGB 24.9 pg (27.0-31.0); MEAN CORPUSCULAR HGB CONC 30.5 g/dl (33.0-37.0); MONO # 0.4 10*3/uL (0.1-1.0); MONO % 5.2 % (3.0-9.0); NEUT # 4.4 10*3/uL (2.3-7.9); NEUT % 64.6 % (47.0-73.0); RED BLOOD COUNT 3.93 10*6/uL (4.10-5.10); RED CELL DISTRI WIDTH 16.7 % (0-14.5); WHITE BLOOD COUNT 6.8 10*3/uL (4.8-10.8)
[2018-10-12 07:09] LABS: ALBUMIN 3.1 gm/dl (3.1-4.5); BUN 11 mg/dl (7-24); CHLORIDE 111 mmol/L (98-107); POTASSIUM 3.9 mmol/L (3.5-5.1); SODIUM 141 mmol/L (136-145)
[2018-10-12 07:10] LABS: HEMATOCRIT 32.1 % (37.0-47.0); HEMOGLOBIN 9.8 g/dl (12.0-16.0); PLATELET COUNT AUTOMATED 255 10*3/uL (130-400)
[2018-10-12 07:20] LABS: ALKALINE PHOSPHATASE 73 U/L (45-117); CHOLESTEROL 85 mg/dL (<200); CREATININE 0.66 mg/dL (0.55-1.02); HDL CHOLESTEROL 30 mg/dl (40-60); LDL CHOLESTEROL 28 mg/dL (9-159); PHOSPHOROUS 3.5 mg/dL (2.5-4.9); SGOT/AST 48 IU/L (3-35); SGPT/ALT 32 U/L (12-78); TOTAL PROTEIN 6.6 gm/dL (6.4-8.2); TRIGLYCERIDES 135 mg/dl (<150); VLDL CHOLESTEROL 27 mg/dL (6-40)
--- NOTE | 2018-10-12 08:35 | NUR ---
MORPHINE GIVEN FOR C/O RECTAL PAIN. RATES 8/10 ON PAIN SCALE. WILL MONITOR.
--- NOTE | 2018-10-12 09:00 | NUR ---
[employer] Developer in to talk to patient. Patient states lives at home with . There are few steps in the home. Physician: philip borja [facility] Home health services: none Patient's level of ADLs: INDEPENDENT Patient has working utilities: all working DME: cane Follow-up physician's appointment after d/c: will be made by hospitalist nurse director upon discharge Does patient want to access PORTAL?: no Discharge plan discussed with patient, patient lives at home with , she states she is independent in adls and ambulation, she has a cane but doesn't use it. patient states she will be going home when able. discussed with her VNA and she declines any home needs at this time. PAULINA ALEXANDRE
--- NOTE | 2018-10-12 09:40 | NUR ---
MORPHINE EFFECTIVE PER PT.
[2018-10-12 12:00] VITALS: BP 128/59
--- NOTE | 2018-10-12 12:41 | NUR ---
MORPHINE GIVEN FOR C/O RECTAL/BACK PAIN. 05/25 ON PAIN. WILL MONITOR.
--- NOTE | 2018-10-12 13:45 | NUR ---
MORPHINE EFFECTIVE PER PT.
--- NOTE | 2018-10-12 15:30 | NUR ---
NORCO GIVEN FOR C/O RECTAL/BACK PAIN. RATES 7/10 ON PAIN SCALE. WILL MONITOR.
[2018-10-12 16:00] VITALS: BP 129/51
--- NOTE | 2018-10-12 16:30 | NUR ---
NORCO NOT FULLY EFFECTIVE PER PT. WILL MONITOR.
--- NOTE | 2018-10-12 17:38 | NUR ---
MORPHINE GIVEN FOR C/O RECTAL/BACK PAIN. WILL MONITOR.
--- NOTE | 2018-10-12 20:00 | NUR ---
TALKING ON PHONE. NO DISTRESS NOTED. RESPIRATIONS EASY. CALL LIGHT WITHIN REACH
[2018-10-12 20:23] VITALS: BP 142/67
--- NOTE | 2018-10-12 20:45 | NUR ---
24 HR chart check completed.
--- NOTE | 2018-10-12 21:00 | NUR ---
RESTING IN BED WITH NO ACUTE DISTRESS NOTED. RESPIRATIONS EASY. LUNGS DIMINISHED WITH INSPIRATORY WHEEZES. PULSE OX 97% RA. NON-PRODUCTIVE SMOKERS COUGH. ABD DISTENDED WITH NORMOACTIVE BOWEL SOUNDS. OFFERED AND EDUCATED REGARDING TEDS, DECLINED. CALL LIGHT WITHIN REACH. NO VOICED COMPLAINTS
--- NOTE | 2018-10-12 21:50 | NUR ---
REQUESTED AND RECEIVED NORCO PER PRN ORDER FOR COMPLAINTS OF RECTAL PAIN RATING A 5. ALSO REQUESTED AND RECEIVED RESTORIL TO ASSIST WITH SLEEP. WILL MONITOR FOR EFFECTIVENESS
--- NOTE | 2018-10-12 23:00 | NUR ---
STATES RELIEF FROM EARLIER NORCO. TALKING ON PHONE. NO FURTHER COMPLAINTS
[2018-10-13] VITALS: BP 116/60
--- NOTE | 2018-10-13 | NUR ---
MEDS EFFECTIVE. SLEEPING. RESPIRATIONS EASY. VSS. CALL LIGHT WITHIN REACH.
--- NOTE | 2018-10-13 03:27 | NUR ---
AWAKENS, C/O RECTAL PAIN RATING A 5. MEDICATED WITH NORCO PER PRN ORDER. CALL LIGHT WITHIN REACH. WILL MONITOR FOR EFFECTIVENESS
--- NOTE | 2018-10-13 05:00 | NUR ---
EARLIER NORCO APPEARS EFFECTIVE. SLEEPING. NO DISTRESS NOTED. RESPIRATIONS EASY.
[2018-10-13 06:32] LABS: BASO % 0.4 % (0.0-1.0); EOS # 0.2 10*3/uL (0.0-0.4); EOS % 2.9 % (1.0-4.0); HEMATOCRIT 32.7 % (37.0-47.0); HEMOGLOBIN 9.6 g/dl (12.0-16.0); LYMPH # 1.7 10*3/uL (1.3-4.4); MEAN CORPUSCULAR HGB 24.4 pg (27.0-31.0); MEAN CORPUSCULAR HGB CONC 29.4 g/dl (33.0-37.0); MEAN PLATELET VOLUME 11.4 fl (9.6-12.3); MONO # 0.4 10*3/uL (0.1-1.0); MONO % 4.5 % (3.0-9.0); NEUT # 5.6 10*3/uL (2.3-7.9); NEUT % 70.2 % (47.0-73.0); PLATELET COUNT AUTOMATED 265 10*3/uL (130-400); RED BLOOD COUNT 3.94 10*6/uL (4.10-5.10); RED CELL DISTRI WIDTH 16.6 % (0-14.5)
[2018-10-13 07:00] LABS: BUN 8 mg/dl (7-24); CHLORIDE 111 mmol/L (98-107); CREATININE 0.67 mg/dL (0.55-1.02); POTASSIUM 4.2 mmol/L (3.5-5.1); SODIUM 141 mmol/L (136-145)
[2018-10-13 08:00] VITALS: BP 124/72
--- NOTE | 2018-10-13 09:06 | NUR ---
PT REQUESTED IV MORPHINE SLOWLY PER PRN ORDER FOR C/O RECTAL PAIN. RATES PAIN 8/10. WILL MONITOR EFFECTIVENESS. CALL LIGHT WITHIN REACH.
--- NOTE | 2018-10-13 09:45 | NUR ---
PAIN BEING RELIEVED PER PT. WILL CONTINUE TO MONITOR.
--- NOTE | 2018-10-13 11:51 | NUR ---
PATIENT REQUESTED NORCO PO PER PRN ORDER FOR C/O RECTAL PAIN. RATES PAIN 8/10. WILL MONITOR EFFECTIVENESS.
[2018-10-13 12:00] VITALS: BP 118/60; BP 175/68
--- NOTE | 2018-10-13 12:55 | NUR ---
NORCO EFFECTIVE PER PT. WILL CONTINUE TO MONITOR.
--- NOTE | 2018-10-13 14:59 | NUR ---
ATTEMPTED TO REACH REGARDING CONSULT. NO ANSWER AT THIS TIME.
--- NOTE | 2018-10-13 15:49 | NUR ---
RETURNED CALL. NO NEW ORDERS AT THIS TIME.
[2018-10-13 16:00] VITALS: BP 142/71
--- NOTE | 2018-10-13 16:34 | NUR ---
PT REQUESTED AND RECEIVED IV MORPHINE PER PRN ORDER FOR C/O RECTAL PAIN. RATES PAIN 8/10. WILL MONITOR EFFECTIVENESS.
--- NOTE | 2018-10-13 17:15 | NUR ---
EARLIER MEDS EFFECTIVE PER PT. WILL CONTINUE TO MONITOR.
--- NOTE | 2018-10-13 19:28 | NUR ---
24 HR chart check completed.
[2018-10-13 20:00] VITALS: BP 157/68
--- NOTE | 2018-10-13 21:00 | NUR ---
RESTING IN BED WITH NO DISTRESS NOTED. RESPIRATIONS EASY. LUNGS DIMINISHED WITH FAINT EXP WHEEZES. PULSE OX 98% RA. NON-PRODUCTIVE SMOKERS COUGH. ABD DISTENDED WITH HYPERACTIVE BOWEL SOUNDS, DENIES N/V BUT ADMITS TO LOOSE STOOLS WHICH ARE PATIENT'S NORM. +2 BLE R>L. CALL LIGHT WITHIN REACH. NO VOICED COMPLAINTS
--- NOTE | 2018-10-13 21:30 | NUR ---
PATIENT ANXIOUS WITH MULTIPLE COMPLAINTS. C/O SWELLING TO BLE BUT STATES SHE DID NOT SHOW DR'S TODAY. AGAIN OFFERED AND EDUCATED REGARDING TEDS, CONTINUES TO DECLINE STATING SHE HAS MULTIPLE PAIRS AT HOME AND THEY DON'T HELP. ENCOURAGED TO ELEVATE. PATIENT THEN STARTS COMPLAINING ABOUT PAIN, STATING "MY ROOMMATE TAKES MORE NEURONTIN THAN ME. I THINK MINE NEEDS INCREASED." ENCOURAGED PATIENT TO DISCUSS CONCERNS WITH PRIMARY CARE PHYSICIAN, PATIENT STATES [facility] MANAGES PAIN MEDS. PATIENT THEN GOES ON TO COMPLAIN OF ANXIETY AND SMOKING. PATIENT PROVIDED WITH CARTRIDGES FOR NICOTINE INHALER.
--- NOTE | 2018-10-13 21:30 | NUR ---
REQUESTED AND RECEIVED NORCO PER PRN ORDER FOR COMPLAINTS OF RECTAL PAIN RATING A 5. ALSO MEDICATED WITH RESTORIL TO ASSIST WITH SLEEP. WILL MONITOR FOR EFFECTIVENESS
--- NOTE | 2018-10-13 22:00 | NUR ---
PATIENT NOW AGREEABLE TO TEDS. TEDS APPLIED PER ORDER. PATIENT DENIES PAIN TO BLE, JUST SWELLING
[2018-10-14] VITALS: BP 103/52; BP 118/62
--- NOTE | 2018-10-14 | NUR ---
EARLIER NORCO APPEARS EFFECTIVE. SLEEPING. RESPIRATIONS EASY. VSS. CALL LIGHT WITHIN REACH.
--- NOTE | 2018-10-14 01:28 | NUR ---
AWAKENS, REQUESTED AND RECEIVED NORCO PER PRN ORDER FOR COMPLAINTS OF RECTAL PAIN RATING A 5. CALL LIGHT WITHIN REACH WILL MONITOR FOR EFFECTIVENESS
--- NOTE | 2018-10-14 02:30 | NUR ---
EARLIER NORCO APPEARS EFFECTIVE, SLEEPING. RESPIRATIONS EASY. CALL LIGHT WITHIN REACH
--- NOTE | 2018-10-14 06:03 | NUR ---
upon awakening, c/o rectal pain rating a 4. medicated with norco per prn order. call light within reach. will monitor for effectiveness
[2018-10-14 06:26] LABS: BASO % 0.3 % (0.0-1.0); EOS # 0.3 10*3/uL (0.0-0.4); EOS % 3.7 % (1.0-4.0); HEMATOCRIT 31.3 % (37.0-47.0); HEMOGLOBIN 9.3 g/dl (12.0-16.0); LYMPH # 1.7 10*3/uL (1.3-4.4); LYMPH % 23.4 % (27.0-41.0); MEAN CELL VOLUME 82.4 fl (81.0-99.0); MEAN CORPUSCULAR HGB 24.5 pg (27.0-31.0); MEAN CORPUSCULAR HGB CONC 29.7 g/dl (33.0-37.0); MEAN PLATELET VOLUME 10.4 fl (9.6-12.3); MONO # 0.4 10*3/uL (0.1-1.0); MONO % 5.5 % (3.0-9.0); NEUT # 4.7 10*3/uL (2.3-7.9); NEUT % 66.3 % (47.0-73.0); PLATELET COUNT AUTOMATED 241 10*3/uL (130-400); RED CELL DISTRI WIDTH 16.6 % (0-14.5); WHITE BLOOD COUNT 7.1 10*3/uL (4.8-10.8)
--- NOTE | 2018-10-14 06:51 | NUR ---
states earlier norco "helping."
[2018-10-14 06:59] LABS: BUN 8 mg/dl (7-24); CHLORIDE 109 mmol/L (98-107); CREATININE 0.68 mg/dL (0.55-1.02); POTASSIUM 3.9 mmol/L (3.5-5.1); SODIUM 140 mmol/L (136-145)
[2018-10-14 08:00] VITALS: BP 155/72
--- NOTE | 2018-10-14 09:30 | NUR ---
PT REQUESTED AND RECEIVED IV MORPHINE SLOWLY PER PRN ORDER FOR C/O RECTAL PAIN/PRESSURE.RATES PAIN 8/10. WILL MONITOR EFFECTIVENESS.
--- NOTE | 2018-10-14 10:00 | NUR ---
PAIN BEING RELIEVED PER PT. WILL CONTINUE TO MONITOR.
--- NOTE | 2018-10-14 11:46 | NUR ---
PT REQUESTED PO NORCO PER PRN ORDER FOR C/O RECTAL PAIN. RATES PAIN 7/10. WILL MONITOR EFFECTIVENESS.
[2018-10-14 12:00] VITALS: BP 128/78
--- NOTE | 2018-10-14 12:50 | NUR ---
PAIN BEING RELIEVED PER PT.
[2018-10-14] MEDS ORDERED: CIPRO500 MG PO (12:57)
[2018-10-14] MEDS ORDERED: NEURONTIN300 MG PO (14:21)
--- NOTE | 2018-10-14 14:58 | NUR ---
Discharge instructions reviewed with patient/family. Patient receptive and verbalizes understanding. Follow-up care arranged. Written instructions given to patient/family. KEVYN RUSHING.
[2019-01-05] MEDS ORDERED: GLYBURIDE5 MG PO (05:35)
[2019-01-05] MEDS ORDERED: LASIX10 MG/ML PO (05:38)
[2019-01-05] MEDS ORDERED: K-TAB20 MEQ PO (05:39)
[2019-01-10] MEDS ORDERED: DOXYCYCLINE100 M3 PO (11:33)
[2019-01-10] MEDS ORDERED: PREDNISONE10 MG PO (11:33)
== END 2018-10-14 14:58 | disposition home or self-care (01) | DRG 872 ==
LOC: ED 12:50 → EDHOLD 14:51 → 4E 14:51
PROVIDERS: Internal Medicine; Nurse Practitioner Family; Student in an Organized Health Care Education/Training Program; ADMIT Internal Medicine
DX: A41.9 Sepsis, unspecified organism (principal); N39.0 Urinary tract infection, site not specified; E87.2 Acidosis; R65.20 Severe sepsis without septic shock; K64.4 Residual hemorrhoidal skin tags; E11.65 Type 2 diabetes mellitus with hyperglycemia; G89.29 Other chronic pain; M54.5 Low back pain; E78.5 Hyperlipidemia, unspecified; J44.9 Chronic obstructive pulmonary disease, unspecified; K21.9 Gastro-esophageal reflux disease without esophagitis; F17.200 Nicotine dependence, unspecified, uncomplicated; R74.0 Nonspecific elevation of levels of transaminase and lactic acid dehydrogenase [LDH]; D64.9 Anemia, unspecified; E66.09 Other obesity due to excess calories; E11.42 Type 2 diabetes mellitus with diabetic polyneuropathy; E53.8 Deficiency of other specified B group vitamins; Z96.651 Presence of right artificial knee joint; L85.3 Xerosis cutis; E11.51 Type 2 diabetes mellitus with diabetic peripheral angiopathy without gangrene; B35.1 Tinea unguium; Z81.8 Family history of other mental and behavioral disorders; Z71.6 Tobacco abuse counseling; Z80.0 Family history of malignant neoplasm of digestive organs; Z79.4 Long term (current) use of insulin; Z98.891 History of uterine scar from previous surgery; Z90.49 Acquired absence of other specified parts of digestive tract; Z83.3 Family history of diabetes mellitus; Z82.49 Family history of ischemic heart disease and other diseases of the circulatory system; Z68.32 Body mass index [BMI] 32.0-32.9, adult

== ENCOUNTER 2019-02-09 09:53 | Inpatient (IN) | payer MEDICARE, BC ==
[2019-02-09] VITALS (8 sets, daily range): BP systolic 115–148; BP diastolic 50–80
[~2019-02-09] VITALS: Ht 167.6 cm; Wt 94.0 kg
--- NOTE | ~2019-02-09 | O ---
[place], [place] OPERATIVE NOTE NAME: [id number] UNIT #: [id number] ROOM: 404 DOCTOR: GITA JORGENSEN MD BIRTHDATE: [birth year] DOS: 02/11/2019 GASTROENDOSCOPIC REPORT INDICATIONS: A 64-year-old patient who has presented with chief complaint of a lower GI bleed, undergoing investigation. Consultation has been in detail dictated. PROCEDURE: Today's procedure part of investigation is colonoscopy. PREMEDICATION: Propofol. SCOPE: Olympus folding colonoscope 10L video. REPORT: After putting the patient in left lateral position and application of lubricant to the scope, the scope was introduced. Thereafter, under direct visualization, I advanced through the length of colon without difficulty. Mucosal vascularity was lavaged. There was no evidence of lavage with high power water. There was no evidence of ischemia throughout the length of colon and rectum was reapproached. GI reflection of the scope in the rectum shows a trace hemorrhoid. Rectum essentially shows signs of previous operation of hemorrhoidectomy. The patient extubated and tolerated the procedure well. No blood in colon. IMPRESSION: Traces of hemorrhoid, otherwise normal colonoscopic examination. PLAN AND DISCUSSION: Resumption of feeding. Clinical reassessment. The patient can be treated with hemorrhoid Preparation-H p.r.n. The patient advised not to seek care and not to seek emergency services when she sees trace of blood in her stool and follow up as outpatient. GITA JORGENSEN MD CM:OPRECORD:OPERATIVE NOTE 1840 38 GITA JORGENSEN MD 02/11/192236 interface
--- NOTE | ~2019-02-09 | CON ---
[facility], [place] REPORT OF CONSULTATION NAME[facility]: [id number] UNIT #: [id number] ROOM: 404 DOCTOR: GITA JORGENSEN MD BIRTHDATE: [birth year] DOS: 02/11/2019 HISTORY OF PRESENT ILLNESS: A 64-year-old patient, who has presented with chief complaint of lower GI bleed. She is concerned and she has been admitted through the Emergency Room with followup on H and H. Initially, white blood cell was 9.8, H and H of 11 and 38, microcytic indices without thrombocytopenia. Her INR was 1.0. Her GFR was greater than 60. Electrolytes balanced. Magnesium was 1.4. Liver function test within normal limits. CTA of the chest due to tightness in chest was assessed, no evidence of pulmonary embolism. Troponin remained normal. Her latest H and H today has been 9 and 32 with basic metabolic panel that is within normal limit, calcium 8.6. Comprehensive metabolic panel with GFR greater than 60. Liver function test normal. PAST MEDICAL HISTORY: Associated with COPD, anterolisthesis, degenerative joint disease, GERD, hepatic steatosis, obesity, and lower GI bleed amongst some of her problems. PAST SURGICAL HISTORY: History of endoscopies, hemorrhoidectomy, cervical polypectomy, , cholecystectomy, right knee prosthesis. SOCIAL HISTORY: Smoker, nonalcohol consumer except social base. FAMILY HISTORY: Noncontributory. ALLERGIES: To no known medications. MEDICATION LIST: Includes 81 mg aspirin. REVIEW OF SYSTEMS: HEENT: Denies double vision or blurred vision. RESPIRATORY: Denies acute shortness of breath. CARDIOVASCULAR: Denies acute chest pain. DIGESTIVE SYSTEM: Lower GI bleed. PHYSICAL EXAMINATION: VITAL SIGNS: Stable. HEENT: Benign. Edentulous. NECK: Supple. No thyromegaly. CHEST: Symmetric anatomy, equal expansion. No wheeze, no rhonchi. HEART: Normal sinus rhythm. No gallop, no murmur. ABDOMEN: Obese, large, soft. No hepato-organomegaly. Bowel sounds present. EXTREMITIES: 1+ edema with stasis dermatitis. NEUROLOGIC: Fully alert and oriented to time, place, and person. DIAGNOSTIC DATA: Labs reviewed, records reviewed. IMPRESSION: Lower gastrointestinal bleed, on aspirin. On the other hand, she needs to stay on anticoagulation with aspirin as she says due to heart issue through Cardiology Service. Other adjunctive diagnoses are hypertension, COPD, GERD, and hepatic steatosis. Other adjunctive diagnoses are as dictated in [facility], [place] REPORT OF CONSULTATION NAME: CHRISTIANO JAIMES UNIT #: [id number] ROOM: [facility] DOCTOR: GITA JORGENSEN MD BIRTHDATE: [birth year] paragraph of past medical and surgical history. RECOMMENDATIONS: We will proceed with colonoscopy. GITA JORGENSEN MD CM:CONSTR:REPORT OF CONSULTATION 1754 02/12/19 0323 interface
--- NOTE | ~2019-02-09 | EKG ---
[place], [place] ELECTROCARDIOGRAM REPORT NAME: CHRISTIANO JAIMES UNIT #: [id number] ROOM: 404 DOCTOR: CRISTI DRAFT REPORT BIRTHDATE: [birth year] [facility] Test Date: 2019-02-09 Test Time: 16:00:56 Pat Name: CHRISTIANO JAIMES Department: Room: 404 Gender: F Radiation Technician: EKG.TX : 1955 Requested By: CODY CERVANTES Order Number: [id number] Reading MD: Marco A Clancy Measurements Intervals [place] Rate: 104 P: 59 [place]: 165 QRS: 39 QRSD: 86 T: 27 QT: 367 QTc: 483 Interpretive Statements Sinus tachycardia Anterior infarct, old Electronically Signed On 02-10-2019 5:16:30 PDT by Marco A Clancy CM:EKGRPT:ELECTROCARDIOGRAM REPORT 1600 0516 CODY COLIN DRAFT REPORT CODY CERVANTES M.D.
--- NOTE | ~2019-02-09 | EKG ---
[place], [place] ELECTROCARDIOGRAM REPORT NAME: CHRISTIANO JAIMES UNIT #: [id number] ROOM: 404 DOCTOR: LEWISANY DRAFT REPORT BIRTHDATE: [birth year] [facility] Test Date: 2019-02-12 Test Time: 07:56:11 Pat Name: CHRISTIANO JAIMES Department: Room: [facility] 2 Gender: F Entertainment Reporter: Janel Callaway : 1955 Requested By: BOBBY OGDEN Order Number: [id number] Reading MD: Nichole Diaz MD Measurements Intervals [place] Rate: 78 P: 20 [place]: 158 QRS: 44 QRSD: 81 T: 36 QT: 398 QTc: 454 Interpretive Statements Sinus arrhythmia Low voltage, precordial leads Baseline wander in lead(s) V1 Compared to ECG 02/09/2019 16:00:56 Low QRS voltage now present Sinus tachycardia no longer present Myocardial infarct finding no longer present Electronically Signed On 02-14-2019 8:10:55 PDT by Nichole Diaz MD CM:EKGRPT:ELECTROCARDIOGRAM REPORT [id number] 0810 BOBBY MAHONEY DRAFT REPORT BOBBY OGDEN DO
--- NOTE | ~2019-02-09 | EKG ---
[place], [place] ELECTROCARDIOGRAM REPORT NAME: CHRISTIANO JAIMES UNIT #: [id number] ROOM: DOCTOR: CRISTI DRAFT REPORT BIRTHDATE: [birth year] [facility] Test Date: 2019-02-09 Test Time: 09:59:21 Pat Name: CHRISTIANO JAIMES Department: Room: Gender: F Magnet Placer: : 1955 Requested By: CODY CERVANTES Order Number: [id number] Reading MD: Measurements Intervals [place] Rate: 116 P: 61 [place]: 145 QRS: 53 QRSD: 110 T: 55 QT: 346 QTc: 481 Interpretive Statements Sinus tachycardia LAE, consider biatrial enlargement Inferior infarct, acute (LCx) Probable anteroseptal infarct, old Artifact in lead(s) II,III,aVR,aVL,aVF No previous ECG available for comparison CM:EKGRPT:ELECTROCARDIOGRAM REPORT [id number] 0702 CODY COLIN DRAFT REPORT CODY CERVANTES M.D.
--- NOTE | ~2019-02-09 | EKG ---
[place], [place] ELECTROCARDIOGRAM REPORT NAME: CHRISTIANO JAIMES UNIT #: [id number] ROOM: 404 DOCTOR: CRISTI DRAFT REPORT BIRTHDATE: [birth year] [facility] Test Date: 2019-02-09 Test Time: 10:10:13 Pat Name: CHRISTIANO JAIMES Department: Room: 404 Gender: F Authors Motivational: : 1955 Requested By: CODY CERVANTES Order Number: [id number] Reading MD: Marco A Clancy Measurements Intervals [place] Rate: 112 P: 67 [place]: 158 QRS: 47 QRSD: 83 T: 33 QT: 344 QTc: 470 Interpretive Statements Sinus tachycardia Probable left atrial enlargement Low voltage, extremity and precordial leads No previous ECG available for comparison Electronically Signed On 02-10-2019 5:16:05 PDT by Marco A Clancy CM:EKGRPT:ELECTROCARDIOGRAM REPORT 1010 0516 CODY COLIN DRAFT REPORT
--- NOTE | ~2019-02-09 | EKG ---
[place], [place] ELECTROCARDIOGRAM REPORT NAME: CHRISTIANO JAIMES UNIT #: [id number] ROOM: 404 DOCTOR: CRISTI DRAFT REPORT BIRTHDATE: [birth year] [facility] Test Date: 2019-02-09 Test Time: 13:39:28 Pat Name: CHRISTIANO JAIMES Department: Room: 404 Gender: F Etl Analyst Developer: : 1955 Requested By: CODY CERVANTES Order Number: [id number] Reading MD: Marco A Clancy Measurements Intervals [place] Rate: 108 P: 74 [place]: 157 QRS: 62 QRSD: 84 T: 37 QT: 360 QTc: 483 Interpretive Statements Sinus tachycardia Low voltage, precordial leads Abnormal inferior Q waves Electronically Signed On 02-10-2019 5:16:22 PDT by Marco A Clancy CM:EKGRPT:ELECTROCARDIOGRAM REPORT 1339 0516 CODY COLIN DRAFT REPORT CODY CERVANTES M.D.
[~2019-02-09 09:53] MED LIST changes: +DOXYCYCLINE100 M3 PO; +K-TAB20 MEQ PO; +LASIX10 MG/ML PO
[2019-02-09 10:08] LABS: BASO % 0.4 % (0.0-1.0); EOS # 0.2 10*3/uL (0.0-0.4); EOS % 1.6 % (1.0-4.0); HEMOGLOBIN 11.9 g/dl (12.0-16.0); LYMPH # 1.8 10*3/uL (1.3-4.4); LYMPH % 18.2 % (27.0-41.0); MEAN CELL VOLUME 80.5 fl (81.0-99.0); MEAN CORPUSCULAR HGB 25.2 pg (27.0-31.0); MEAN CORPUSCULAR HGB CONC 31.3 g/dl (33.0-37.0); MEAN PLATELET VOLUME 10.1 fl (9.6-12.3); MONO # 0.5 10*3/uL (0.1-1.0); MONO % 4.6 % (3.0-9.0); NEUT # 7.2 10*3/uL (2.3-7.9); NEUT % 73.7 % (47.0-73.0); PLATELET COUNT AUTOMATED 323 10*3/uL (130-400); RED BLOOD COUNT 4.72 10*6/uL (4.10-5.10); RED CELL DISTRI WIDTH 20.3 % (0-14.5); WHITE BLOOD COUNT 9.8 10*3/uL (4.8-10.8)
[2019-02-09 10:19] LABS: ACT PARTIAL THROMBO TIME 25.3 SECONDS (19.5-32.1)
[2019-02-09 10:26] LABS: ALBUMIN 3.9 gm/dl (3.1-4.5); ALKALINE PHOSPHATASE 91 U/L (45-117); BUN 11 mg/dl (7-24); CHLORIDE 103 mmol/L (98-107); CREATININE 0.93 mg/dL (0.55-1.02); POTASSIUM 4.1 mmol/L (3.5-5.1); SGOT/AST 22 IU/L (3-35); SGPT/ALT 27 U/L (12-78); SODIUM 136 mmol/L (136-145); TOTAL PROTEIN 7.7 gm/dL (6.4-8.2)
[2019-02-09 10:29] LABS: TROPONIN I < 0.015 ng/ml (<0.045)
[2019-02-09 11:20] LABS: BILIRUBIN NEGATIVE (NEGATIVE); BLOOD NEGATIVE (NEGATIVE); CLARITY CLEAR (CLEAR); COLOR YELLOW (YELLOW); GLUCOSE NEGATIVE (NEGATIVE); KETONE TRACE (NEGATIVE); LEUKO ESTERASE NEGATIVE (NEGATIVE); NITRITE NEGATIVE (NEGATIVE); PH 5.5 (5.0-9.0); UROBILINOGEN 0.2 E.U./dl (0.2-1.0)
[2019-02-09 11:29] LABS: BACTERIA TRACE
--- NOTE | 2019-02-09 15:06 | NUR ---
PT STATES TORADOL TOOK THE EDGE OFF THE PAIN.
--- NOTE | 2019-02-09 15:11 | NUR ---
PT AMBULATING TO THE BATHROOM WITH GAIT STEADY AT THIS TIME. PT CALLED RN IN BATHROOM AND SMALL AMT BRIGHT RED BLOOD WITH DIME SIZE CLOT NOTED IN THE COMMODE, PT STATES IT CAME OUT OF HER RECTUM.
--- NOTE | 2019-02-09 15:47 | NUR ---
DR CERVANTES IN PT'S ROOM BRIGHT RED DRIED BLOOD NOTED ON PT'S BUTTOCK. DR CERVANTES DISCUSSING PLAN OF CARE WITH PATIENT.
--- NOTE | 2019-02-09 17:00 | NUR ---
A 64, admitted to 4E, under the services of SHARLA Busch DO with a diagnosis of RECTAL BLEED. Chief complaint is LOWER BACK PAIN. Patient arrived via BED from ER. Monitor applied. Initial assessment completed. Vital signs taken and recorded. SHARLA BUSCH DO notified of admission to the unit. Orders received. See assessment for past medical history, medications and allergies. Patient and/or family oriented to unit. [facility] visitation policy reviewed. Clothing/patient valuable form completed. RAYMOND BLANK
--- NOTE | 2019-02-09 17:50 | NUR ---
NOTIFIED DR HERNANDEZ THAT MEDS HAD BEEN RECONCILED WITH PT AT BEDSIDE AND AGAINST MED CLAIM HISTORY.
--- NOTE | 2019-02-09 20:35 | NUR ---
PSYCH SALES SPECIALIST NOTIFIED THIS NURSE THAT PT HEART RATE IS TACHYCARDIC AT 140S. UPON ENTERING ROOM, PT IS SITTING IN BED WITH NO COMPLAINTS. ELECTRODES REINFORCED AND CHECKED FOR PLACEMENT. APICAL HEART RATE OBTAINED, 90 BPM. NO OTHER CONCERNS VOICED AT THIS TIME BESIDES BACK PAIN. WILL NOTIFY PHYSICIAN.
--- NOTE | 2019-02-09 20:54 | NUR ---
PT C/O BACK PAIN. FLEXIRIL GIVEN AT THIS TIME, WILL MONITOR FOR EFFECTIVENESS AND NOTIFY PHYSICIAN. CALL LIGHT IN REACH.
--- NOTE | 2019-02-09 22:20 | NUR ---
PHYSICIAN NOTIFIED THAT PT STATES THAT FLEXIRIL IS INEFFECTIVE FOR BACK PAIN. NEW ORDERS RECEIVED. MORPHINE 2 MG VIA IV X 1 DOSE. WILL NOTIFY PT AND MEDICATE WHEN AVAILABLE TO PULL FROM [employer].
--- NOTE | 2019-02-09 22:41 | NUR ---
PT MEDICATED WITH 2 MG MORPHINE VIA IV AT THIS TIME. WILL MONITOR FOR EFFECTIVENESS. CALL LIGHT IN REACH.
--- NOTE | 2019-02-09 23:40 | NUR ---
PT STATES THAT MORPHINE IS EFFECTIVE FOR BACK PAIN AT THIS TIME.
[2019-02-10] VITALS: BP 109/49
[2019-02-10 07:05] LABS: BASO % 0.4 % (0.0-1.0); EOS # 0.1 10*3/uL (0.0-0.4); EOS % 1.8 % (1.0-4.0); HEMATOCRIT 33.1 % (37.0-47.0); HEMOGLOBIN 10.2 g/dl (12.0-16.0); LYMPH # 2.2 10*3/uL (1.3-4.4); LYMPH % 31.4 % (27.0-41.0); MEAN CELL VOLUME 81.7 fl (81.0-99.0); MEAN CORPUSCULAR HGB 25.2 pg (27.0-31.0); MEAN CORPUSCULAR HGB CONC 30.8 g/dl (33.0-37.0); MEAN PLATELET VOLUME 10.3 fl (9.6-12.3); MONO # 0.4 10*3/uL (0.1-1.0); MONO % 5.4 % (3.0-9.0); NEUT # 4.2 10*3/uL (2.3-7.9); NEUT % 59.3 % (47.0-73.0); PLATELET COUNT AUTOMATED 272 10*3/uL (130-400); RED BLOOD COUNT 4.05 10*6/uL (4.10-5.10); RED CELL DISTRI WIDTH 20.2 % (0-14.5); WHITE BLOOD COUNT 7.1 10*3/uL (4.8-10.8)
[2019-02-10 07:23] LABS: ALBUMIN 3.3 gm/dl (3.1-4.5); BUN 9 mg/dl (7-24); CHLORIDE 108 mmol/L (98-107); CREATININE 0.72 mg/dL (0.55-1.02); PHOSPHOROUS 4.4 mg/dL (2.5-4.9); SGOT/AST 19 IU/L (3-35); SGPT/ALT 22 U/L (12-78); SODIUM 140 mmol/L (136-145); TOTAL PROTEIN 6.5 gm/dL (6.4-8.2)
[2019-02-10 07:24] LABS: ALKALINE PHOSPHATASE 79 U/L (45-117)
[2019-02-10 08:00] VITALS: BP 110/50
--- NOTE | 2019-02-10 10:02 | NUR ---
NOTIFIED RT REGARDING O2/EXTENSIONS @ 1.5 LNC. PT CURRENTLY RESTING IN BED. RESPS NONLABORED. SPO2 96% on 1.5 LNC. DENIES SOB @ REST.PT DOES EXPERIENCE PERIODS OF EXERTIONAL DYSPNEA. PT HAS POOR ENDURANCE.GENERALIZED WEAKNESS BUT DOES RATHER WELL.
--- NOTE | 2019-02-10 10:03 | NUR ---
Dr Clancy rounded and seen pt.No new orders.
--- NOTE | 2019-02-10 10:36 | NUR ---
NOTIFIED DR JORGENSEN PER HIS REQUEST OF H/H ..1.ORDERS RECIEVED.PER HIS REQUEST HE WOULD LIKE NOTIFIED IN AM OF CBC RESULTS.
--- NOTE | 2019-02-10 10:39 | NUR ---
DAUGHTERS IN VISITING WITH PT AT BEDSIDE. EDUCATION PROVIDED REGARDING CHF,STRESS IN AM AND UPDATED DAUGHTER ON PLAN OF CARE PER DR MONTIEL.
--- NOTE | 2019-02-10 10:49 | NUR ---
NOTIFIED DR HERNANDEZ OF PT C/O BACK PAIN AND THAT SHE WAS REQUESTING PAIN MEDICATION.AWAITING ORDER.
--- NOTE | 2019-02-10 11:46 | NUR ---
OXY IR 5 MG GIVEN FOR C/O BACK PAIN,05/25.
[2019-02-10 12:00] VITALS: BP 117/56
--- NOTE | 2019-02-10 13:36 | NUR ---
Patient resting quietly with no c/o discomfort. Respirations easy and regular. Vital signs stable. No overt distress.Family visiting at bedside.Call light in reach. RAYMOND BLANK
[2019-02-10 16:00] VITALS: BP 112/48
--- NOTE | 2019-02-10 18:48 | NUR ---
OXY IR 5 MG GIVEN FOR C/O LOWER BACK PAIN,05/25.
[2019-02-10 20:00] VITALS: BP 96/78
--- NOTE | 2019-02-10 21:00 | NUR ---
PT STATES OXY IR EFFECTIVE FOR LOW BACK PAIN
--- NOTE | 2019-02-10 23:18 | NUR ---
DR QUINTERO NOTIFIED OF PT'S C/O PAIN AND REQUEST FOR IV PAIN MEDS. NEW ORDERS FOR 1X MORPHINE 2MG
--- NOTE | 2019-02-10 23:57 | NUR ---
1X MORPHINE GIVEN FOR C/O PAIN TO BACK 06/25
[2019-02-11] VITALS (8 sets, daily range): BP systolic 111–155; BP diastolic 50–73
--- NOTE | 2019-02-11 04:39 | NUR ---
OXY IR GIVEN FOR C/O BACK AND RECTAL DISCOMFORT RATED 8.5/10
[2019-02-11 06:34] LABS: BASO % 0.2 % (0.0-1.0); EOS # 0.1 10*3/uL (0.0-0.4); EOS % 2.1 % (1.0-4.0); HEMATOCRIT 32.5 % (37.0-47.0); HEMOGLOBIN 9.7 g/dl (12.0-16.0); LYMPH # 2.2 10*3/uL (1.3-4.4); LYMPH % 36.9 % (27.0-41.0); MEAN CELL VOLUME 83.1 fl (81.0-99.0); MEAN CORPUSCULAR HGB 24.8 pg (27.0-31.0); MEAN CORPUSCULAR HGB CONC 29.8 g/dl (33.0-37.0); MEAN PLATELET VOLUME 10.7 fl (9.6-12.3); MONO # 0.3 10*3/uL (0.1-1.0); MONO % 5.8 % (3.0-9.0); NEUT # 3.1 10*3/uL (2.3-7.9); NEUT % 52.4 % (47.0-73.0); PLATELET COUNT AUTOMATED 281 10*3/uL (130-400); RED BLOOD COUNT 3.91 10*6/uL (4.10-5.10); RED CELL DISTRI WIDTH 20.3 % (0-14.5); WHITE BLOOD COUNT 5.8 10*3/uL (4.8-10.8)
[2019-02-11 07:09] LABS: BUN 8 mg/dl (7-24); CHLORIDE 107 mmol/L (98-107); CREATININE 0.82 mg/dL (0.55-1.02); POTASSIUM 4.4 mmol/L (3.5-5.1); SODIUM 141 mmol/L (136-145)
--- NOTE | 2019-02-11 09:00 | NUR ---
PT SEEN AT THIS TIME. NO SIGNS OF DISTRESS AND NO SOB NOTED. PT IS SITTING ON SIDE OF THE BED. PT IS PLEASANT AND COOPERATIVE. SPEECH APPROPRIATE. COMPLAINS OF PAIN RATED AT A 9 AT THIS TIME. STATES PAIN IS LOCATED IN LOWER BACK/RECTUM AREA. BED IN LOWEST LOCKED POSITION AND CALL LIGHT WITHIN REACH. WILL CONTINUE TO MONITOR.
--- NOTE | 2019-02-11 09:00 | NUR ---
Brigadier in to talk to patient. Patient states lives at home with . There are few steps in the home. Physician: philip borja [facility] Home health services: none Patient's level of ADLs: INDEPENDENT Patient has working utilities: all working DME: cane, rarely uses Follow-up physician's appointment after d/c: will be made by hospitalist nurse director upon discharge Does patient want to access PORTAL?: no Discharge plan discussed with patient, patient lives at home with , she states she is independent in adls and ambulation, patient states she will be going home when able. discussed with her VNA and she declines any home needs PAULINA ALEXANDRE
--- NOTE | 2019-02-11 10:45 | NUR ---
ORDERS OBTAINED FOR MORPHINE. PT STATES PAIN IS AN 8 AT THIS TIME. PAIN IS LOCATED IN LOWER BACK/ RECTUM AREA. MORPHINE ADMINISTERED AT THIS TIME. WILL MONITOR FOR EFFECTIVENESS. PT EDUCATED ON STAYING NPO.
--- NOTE | 2019-02-11 13:00 | NUR ---
PT HAS NO COMPLAINTS AT THIS TIME. PRN MORPHINE CONSIDERED EFFECTIVE. PT SITTIN ON SIDE OF BED AND TALKING ON THE PHONE. PT HAS NO COMPLAINTS AT THIS TIME. BED IN LOWEST LOCKED POSITION AND CALL LIGHT WITHIN REACH. WILL CONTINUE TO MONITOR.
--- NOTE | 2019-02-11 15:32 | NUR ---
Occupational Therapy offered but patient admits that she is independent in self care and functional mobility and does not need OT at this time. OT explained to patient. She admits that she is more tired and energy level is low d/t blood loss and not eating. Discharge OT referral per patient request. Thank you for this referral. Magdalena Montero OTR/L
--- NOTE | 2019-02-11 21:55 | NUR ---
MEDICATED WITH MORPHINE PER PRN ORDER FOR C/O PAIN.
[2019-02-12] VITALS: BP 130/56
--- NOTE | 2019-02-12 03:20 | NUR ---
MEDICATED WITH OXY IR PER PRN ORDER FOR C/O PAIN.
--- NOTE | 2019-02-12 05:00 | NUR ---
OXY IR EFFECTIVE FOR PAIN.
--- NOTE | 2019-02-12 05:30 | NUR ---
MEDICATED WITH MORPHINE PER PRN ORDER FOR C/O PAIN.
[2019-02-12 07:37] LABS: BASO % 0.3 % (0.0-1.0); EOS # 0.1 10*3/uL (0.0-0.4); EOS % 1.5 % (1.0-4.0); HEMATOCRIT 32.5 % (37.0-47.0); HEMOGLOBIN 9.7 g/dl (12.0-16.0); LYMPH % 27.6 % (27.0-41.0); MEAN CELL VOLUME 82.9 fl (81.0-99.0); MEAN CORPUSCULAR HGB 24.7 pg (27.0-31.0); MEAN CORPUSCULAR HGB CONC 29.8 g/dl (33.0-37.0); MEAN PLATELET VOLUME 10.8 fl (9.6-12.3); MONO # 0.3 10*3/uL (0.1-1.0); MONO % 4.1 % (3.0-9.0); NEUT # 4.6 10*3/uL (2.3-7.9); PLATELET COUNT AUTOMATED 304 10*3/uL (130-400); RED BLOOD COUNT 3.92 10*6/uL (4.10-5.10); RED CELL DISTRI WIDTH 20.2 % (0-14.5); WHITE BLOOD COUNT 7.1 10*3/uL (4.8-10.8)
[2019-02-12 08:00] VITALS: BP 127/55
--- NOTE | 2019-02-12 09:40 | NUR ---
PT SEEN AT THIS TIME. PT STATES SHE HAS LOWER BACK PAIN RATED AT AN 8 AT THIS TIME AND STATES "I WANT THAT IV PAIN MEDICINE" IV MORPHINE GIVEN AT THIS TIME. WILL MONITOR FOR EFFECTIVENESS.
[2019-02-12] MEDS ORDERED: Anusol Hc,Anuco25 MG R (10:18)
--- NOTE | 2019-02-12 10:58 | NUR ---
PHYSICAL THERAPY PAtient reports she is 100 % (I) with all functional mobilty and has no PT needs. Will d/c PT at this time. Thank you for this referral. Thao Shell,PT
--- NOTE | 2019-02-12 11:00 | NUR ---
INTO ROOM TO EVALUATE EFFECTIVENESS OF MORPHINE. PT LAUGHING AND JOKING WITH ROOM MATE. PT STATES RELIEF FROM MEDS.
--- NOTE | 2019-02-12 11:51 | NUR ---
Discharge instructions reviewed with patient/family. Patient receptive and verbalizes understanding. Follow-up care arranged. Written instructions given to patient/family. SOPHIA GARRIDO
--- NOTE | 2019-02-12 12:12 | NUR ---
case mangement visits with patient, patient states she will be going home when able and denies any home needs
== END 2019-02-12 11:51 | disposition home or self-care (01) | DRG 394 ==
LOC: ED 09:53 → 4E 16:28 → EDHOLD 16:28 → 4E 16:34
PROVIDERS: Emergency Medicine; Internal Medicine; Internal Medicine Gastroenterology; ADMIT Internal Medicine
PROC: 0DJD8ZZ Inspection of Lower Intestinal Tract, Via Natural or Artificial Opening Endoscopic (ICD-10-PCS; principal; 2019-02-11)
DX: K64.4 Residual hemorrhoidal skin tags (principal); K62.5 Hemorrhage of anus and rectum; M54.5 Low back pain; R00.0 Tachycardia, unspecified; E83.42 Hypomagnesemia; J44.9 Chronic obstructive pulmonary disease, unspecified; I10 Essential (primary) hypertension; E78.5 Hyperlipidemia, unspecified; K76.0 Fatty (change of) liver, not elsewhere classified; E11.65 Type 2 diabetes mellitus with hyperglycemia; Z96.651 Presence of right artificial knee joint; K21.9 Gastro-esophageal reflux disease without esophagitis; G89.29 Other chronic pain; E66.09 Other obesity due to excess calories; M19.90 Unspecified osteoarthritis, unspecified site; E11.40 Type 2 diabetes mellitus with diabetic neuropathy, unspecified; F17.210 Nicotine dependence, cigarettes, uncomplicated; D50.9 Iron deficiency anemia, unspecified; Z71.6 Tobacco abuse counseling; Z87.01 Personal history of pneumonia (recurrent); Z90.49 Acquired absence of other specified parts of digestive tract; Z98.51 Tubal ligation status; Z82.0 Family history of epilepsy and other diseases of the nervous system; Z82.49 Family history of ischemic heart disease and other diseases of the circulatory system; Z80.0 Family history of malignant neoplasm of digestive organs; Z83.3 Family history of diabetes mellitus; Z79.82 Long term (current) use of aspirin; Z79.899 Other long term (current) drug therapy; Z68.33 Body mass index [BMI] 33.0-33.9, adult

== ENCOUNTER 2019-05-22 18:05 | Inpatient (IN) | payer MEDICARE, BC ==
[~2019-05-22] VITALS: Ht 167.6 cm; Wt 98.0 kg
--- NOTE | ~2019-05-22 | EKG ---
[place], [place] ELECTROCARDIOGRAM REPORT NAME: CHRISTIANO JAIMES UNIT #: [id number] ROOM: 404 DOCTOR: CRISTI DRAFT REPORT BIRTHDATE: [birth year] [facility] Test Date: 2019-05-22 Test Time: 20:37:21 Pat Name: CHRISTIANO JAIMES Department: Room: 404 Gender: F Pantry Goods Maker: : 1955 Requested By: LEONA RICH Order Number: [id number] Reading MD: Nichole Diaz MD Measurements Intervals [place] Rate: 83 P: 55 [place]: 160 QRS: 58 QRSD: 95 T: 29 QT: 403 QTc: 474 Interpretive Statements Sinus rhythm Probable left atrial enlargement Low voltage, extremity and precordial leads Anteroseptal infarct, old Compared to ECG 02/12/2019 07:56:11 Myocardial infarct finding now present Sinus arrhythmia no longer present Electronically Signed On 05-23-2019 12:28:50 PDT by Nichole Diaz MD CM:EKGRPT:ELECTROCARDIOGRAM REPORT [id number] LEONA MAHONEY DRAFT REPORT LEONA RICH DO
--- NOTE | ~2019-05-22 | EKG ---
[place], [place] ELECTROCARDIOGRAM REPORT NAME: CHRISTIANO JAIMES UNIT #: [id number] ROOM: 404 DOCTOR: CRISTI DRAFT REPORT BIRTHDATE: [birth year] [facility] Test Date: 2019-05-23 Test Time: 00:53:59 Pat Name: CHRISTIANO JAIMES Department: Room: 404 Gender: F Hiv Nurse: : 1955 Requested By: LEONA RICH Order Number: [id number] Reading MD: Nichole Diaz MD Measurements Intervals [place] Rate: 87 P: 61 [place]: 167 QRS: 46 QRSD: 88 T: 31 QT: 396 QTc: 477 Interpretive Statements Sinus rhythm Left atrial enlargement Anteroseptal infarct, age indeterminate Compared to ECG 02/12/2019 07:56:11 Atrial abnormality now present Myocardial infarct finding now present Sinus arrhythmia no longer present Electronically Signed On 05-23-2019 12:29:06 PDT by Nichole Diaz MD CM:EKGRPT:ELECTROCARDIOGRAM REPORT 0053 1229 LEONA MHAONEY DRAFT REPORT LEONA RICH DO
--- NOTE | ~2019-05-22 | EKG ---
[place], [place] ELECTROCARDIOGRAM REPORT NAME: CHRISTIANO JAIMES UNIT #: [id number] ROOM: 404 DOCTOR: CRISTI DRAFT REPORT BIRTHDATE: [birth year] [facility] Test Date: 2019-05-22 Test Time: 18:12:06 Pat Name: CHRISTIANO JAIMES Department: Room: 404 Gender: F Cosmetic Maker: : 1955 Requested By: LEONA RICH Order Number: [id number] Reading MD: Nichole Diaz MD Measurements Intervals [place] Rate: 95 P: 46 [place]: 161 QRS: 58 QRSD: 93 T: 28 QT: 376 QTc: 473 Interpretive Statements Sinus rhythm Probable left atrial enlargement Low voltage, precordial leads Compared to ECG 02/12/2019 07:56:11 Sinus arrhythmia no longer present Electronically Signed On 05-23-2019 12:28:43 PDT by Nichole Diaz MD CM:EKGRPT:ELECTROCARDIOGRAM REPORT 1812 1228 LEONA MAHONEY DRAFT REPORT LEONA RICH DO
--- NOTE | ~2019-05-22 | PR ---
[place], [place] PROGRESS NOTE NAME: CHRISTIANO JAIMES [facility] #: [id number] UNIT #: [id number] ROOM: 404 DOCTOR: BEVERLEY JACINTO MD BIRTHDATE: [birth year] DOS: 05/28/2019 SUBJECTIVE: The patient was seen by Dr. Kang, who was covering for me yesterday. The patient is doing quite well. She denies any chest discomfort, shortness of breath, or palpitations. She is hemodynamically stable. Breathing is significantly improved. No nausea, no vomiting. As mentioned, the patient is stable. Her COPD status is also improving. REVIEW OF SYSTEMS: A 6-8 systems are reviewed, stable. PHYSICAL EXAMINATION: VITAL SIGNS: Blood pressure today is 120/60. She is in sinus rhythm. I's and O's, positive, 2000 mL, not very well maintained and monitored. Pressure is stable. NECK: JVP is negative. LUNGS: Diminished breath sounds. HEART: Heart sounds are regular. EXTREMITIES: Trace edema. IMAGING DATA: Chest x-ray showed mild interstitial edema. LABORATORY DATA: Labs reviewed. IMPRESSION: The patient with hypertension, diastolic heart failure, chronic obstructive pulmonary disease, and cardiac status is stable. RECOMMENDATIONS: Continue the present medications as ordered. Increase activity. Continue the diuretics. We will follow up. BEVERLEY JACINTO MD CM:PNTRANS 0732 0853 BEVERLEY JACINTO MD 05/28/19 0851 interface
--- NOTE | ~2019-05-22 | PR ---
[place], [place] PROGRESS NOTE NAME: CHRISTIANO JAIMES UNIT #: [id number] ROOM: 404 DOCTOR: JUJU CARRERA MD BIRTHDATE: [birth year] DOS: 05/27/[address] Butler. SUBJECTIVE: This is a 64-year-old -Malaysian woman whom I saw a few days ago. She has COPD and also had diastolic heart failure and had been receiving IV diuretics. Her edema in the legs has disappeared. Her breathing is still not quite normal, probably because of underlying COPD. She has had no chest pain or any palpitations. Her appetite is fine. Mood is pretty good. Her was in the room as well. He tells me that she had been smoking a couple of packs a day for the last 40 years. PHYSICAL EXAMINATION: GENERAL: Reveals the patient who is pleasant, alert, oriented, moderately obese. Complexion is fine. VITAL SIGNS: Pulse is regular 76, blood pressure 122/61. NECK: JVP is normal. AJR is negative. No carotid bruit. HEART: There is no cardiomegaly, no murmurs are present. EXTREMITIES: There is trace pedal edema. RESPIRATORY: She is mildly tachypneic, and breath sounds are moderately diminished with some adventitious sounds. LABORATORY DATA: She had a chest x-ray on the , i.e., on the day of admission, which shows interstitial edema. There has not been any repeat of the study. I had asked the nurse 3 days ago to keep a strict input and output on this patient and this was not kept. IMPRESSION: 1. Diastolic heart failure is well compensated. 2. Chronic obstructive pulmonary disease, appeared to be adequately controlled. RECOMMENDATIONS: The patient can be discharged home on furosemide 40 mg once a day. She took 20 at home and potassium chloride 10 mEq daily. [place], [place] PROGRESS NOTE NAME: CHRISTIANO JAIMES UNIT #: [id number] ROOM: 404 DOCTOR: JUJU CARRERA MD BIRTHDATE: [birth year] JUJU CARRERA MD CM:PNTRANS 1813 0138 JUJU CARRERA MD 05/28/19 0611 interface
--- NOTE | ~2019-05-22 | CON ---
[place], [place] REPORT OF CONSULTATION NAME: CHRISTIANO JAIMES [facility] #: [id number] UNIT #: [id number] ROOM: 404 DOCTOR: JUJU CARRERA MD BIRTHDATE: [birth year] DOS: 05/23/2019 I am seeing this patient on behalf of Dr. Butler. HISTORY OF PRESENT ILLNESS: This is a 64-year-old -Citizen Of [place] woman with a history of longstanding diabetes mellitus, longstanding essential hypertension, morbid obesity, type 2 diabetes mellitus, and hyperlipidemia, who has never had a heart attack or heart failure in the past. She has never had a stroke or cancers. She smokes 2 packs of cigarettes per day. She has COPD, GERD, anemia and chronic back pain. She was admitted to the hospital because of marked shortness of breath. She had been awakened by shortness of breath for 2 nights. Prior to that, she had noticed exertional shortness of breath for about a month or so that seemed to be getting worse. She also developed swelling in the legs a week ago. She has never had any palpitations, but had left anterior chest pain that was rather sharp and stabbing and some shoulder discomfort. This was not related to activity. She has had no nausea, abdominal pain or blood in the stool and no acute neurological symptoms. HOME MEDICATIONS: Included aspirin 81 daily, cyclobenzaprine 100 mg t.i.d., Zetia 10 daily, gabapentin 300 mg every 8 hours, gemfibrozil 600 mg b.i.d., glyburide 10 mg b.i.d., metformin 1 g b.i.d., metoprolol tartrate 50 mg b.i.d., omeprazole 40 mg daily, oxycodone 5 mg daily, potassium chloride 20 mEq daily and Ambien 10 mg at night. PHYSICAL EXAMINATION: GENERAL: This reveals a patient who is moderately obese. She is alert, oriented. She is not jaundiced, not cyanotic. She is not tachypneic. VITAL SIGNS: Temperature is normal at 98.1 degrees: CVS: Pulse is 84 and regular, blood pressure 140/70. NECK: JVP is about 8 cm with a positive AJR. HEART: There is no carotid bruit. There is no cardiomegaly, no murmurs are present. EXTREMITIES: She has 1+ edema and pedal pulses are palpable. RESPIRATORY: Breath sounds are diminished with crackles in both lungs. ABDOMEN: Normal bowel sounds. No bruit. There is no organomegaly or pulsatile mass. DIAGNOSTIC DATA: Two ECGs have shown normal sinus rhythm, normal pattern. Chest x-ray demonstrated mild pulmonary congestion. LABORATORY DATA: Hemoglobin 9.6 g/dL, potassium 3.2, BUN 8, creatinine 0.74. Troponin I is less than 0.015. IMPRESSION: 1. This patient has aevok-jy-sknaoxw heart failure. I suspect this to be [place], [place] REPORT OF CONSULTATION NAME: CHRISTIANO JAIMES UNIT #: [id number] ROOM: 404 DOCTOR: JUJU CARRERA MD BIRTHDATE: [birth year] diastolic until an echocardiogram finds it otherwise. 2. She has left-sided chest pain, which seemed to be pleuritic or coming from the chest wall and is not suggestive of angina; however, she does have all 5 risk factors for underlying coronary artery disease and has heart failure. 3. Morbid obesity. 4. Heavy smoker. RECOMMENDATIONS: 1. An echocardiogram has been done today and Dr. Butler will take a look at it, and then, we will offer further recommendations. 2. I believe this patient should have a further cardiac workup for coronary artery disease, either with Lexiscan Cardiolite or if LV systolic function is diminished with diagnostic heart cath with selective coronary angiogram. 3. IV furosemide should be given because of tachycardia, but metoprolol is being increased to 100 mg b.i.d. If this causes fatigue, etc., then you may want to switch her over to carvedilol, which is much less likely to cause some fatigue. I discussed this with Dr. Dee, Resident, who is looking after this patient, and we will discuss this with Dr. Butler. I thank you on behalf of Dr. Butler for this consult. JUJU CARRERA MD CM:CONSTR:REPORT OF CONSULTATION 1050 05/23/19 5433 interface
--- NOTE | ~2019-05-22 | PR ---
[place], [place] PROGRESS NOTE NAME: CHRISTIANO JAIMES [facility] #: [id number] UNIT #: [id number] ROOM: 404 DOCTOR: JUJU CARRERA MD BIRTHDATE: [birth year] DOS: 05/24/2019 SUBJECTIVE: She has been receiving IV loop diuretics twice a day and tells me that she has been voiding a lot more than at home; however, I's and O's are not kept. She did not have any breathing difficulty last night and walked in the hallways with less shortness of breath. No palpitation, dizziness and has not had any side effects of any of the medications. Her appetite is fine and mood is pretty good. PHYSICAL EXAMINATION: GENERAL: Reveals a patient who is alert, oriented. VITAL SIGNS: Temperature is normal at 98.1 degrees Fahrenheit, pulse is 66 and regular, blood pressure 117/50. NECK: JVP is about 6 cm with definitely positive AJR. LUNGS: She has some crackles in the lungs. EXTREMITIES: Only mild bipedal edema now. No pretibial edema is present. LABORATORY DATA: BUN is 17, creatinine 0.77, potassium 3.7. IMPRESSION: This patient has diastolic heart failure and is still decompensated. She is responding to diuretics. RECOMMENDATIONS: She still needs more IV diuretic for adequate diuresis and I expect her to be in the hospital for another couple of days. JUJU CARRERA MD CM:PNTRANS [id number] JUJU CARRERA MD 05/25/19 0127 interface
[~2019-05-22 18:05] MED LIST changes: +Anusol Hc,Anuco25 MG R
[2019-05-22 18:14] VITALS: BP 150/64
[2019-05-22 18:33] LABS: BASO % 0.3 % (0.0-1.0); EOS # 0.3 10*3/uL (0.0-0.4); EOS % 3.2 % (1.0-4.0); HEMOGLOBIN 10.3 g/dl (12.0-16.0); LYMPH # 2.1 10*3/uL (1.3-4.4); LYMPH % 21.5 % (27.0-41.0); MEAN CELL VOLUME 78.5 fl (81.0-99.0); MEAN CORPUSCULAR HGB 23.1 pg (27.0-31.0); MEAN CORPUSCULAR HGB CONC 29.4 g/dl (33.0-37.0); MEAN PLATELET VOLUME 10.5 fl (9.6-12.3); MONO # 0.4 10*3/uL (0.1-1.0); MONO % 4.1 % (3.0-9.0); NEUT # 6.9 10*3/uL (2.3-7.9); PLATELET COUNT AUTOMATED 274 10*3/uL (130-400); RED BLOOD COUNT 4.46 10*6/uL (4.10-5.10); RED CELL DISTRI WIDTH 18.9 % (0-14.5); WHITE BLOOD COUNT 9.8 10*3/uL (4.8-10.8)
[2019-05-22 18:52] LABS: ALBUMIN 3.7 gm/dl (3.1-4.5); ALKALINE PHOSPHATASE 92 U/L (45-117); BUN 7 mg/dl (7-24); CHLORIDE 107 mmol/L (98-107); CREATININE 0.84 mg/dL (0.55-1.02); POTASSIUM 3.4 mmol/L (3.5-5.1); SGOT/AST 14 IU/L (3-35); SGPT/ALT 19 U/L (12-78); SODIUM 138 mmol/L (136-145)
[2019-05-22 18:54] LABS: TOTAL PROTEIN 7.3 gm/dL (6.4-8.2)
[2019-05-22 18:59] LABS: TROPONIN I < 0.015 ng/ml (<0.045)
[2019-05-22 20:21] VITALS: BP 128/50
[2019-05-22 21:25] VITALS: BP 126/44
[2019-05-22 21:31] VITALS: BP 130/52
[2019-05-23] VITALS: BP 128/64
[2019-05-23 06:30] LABS: BASO % 0.5 % (0.0-1.0); EOS # 0.3 10*3/uL (0.0-0.4); EOS % 4.2 % (1.0-4.0); HEMATOCRIT 32.6 % (37.0-47.0); HEMOGLOBIN 9.6 g/dl (12.0-16.0); LYMPH # 2.3 10*3/uL (1.3-4.4); LYMPH % 31.3 % (27.0-41.0); MEAN CELL VOLUME 78.6 fl (81.0-99.0); MEAN CORPUSCULAR HGB 23.1 pg (27.0-31.0); MEAN CORPUSCULAR HGB CONC 29.4 g/dl (33.0-37.0); MEAN PLATELET VOLUME 10.8 fl (9.6-12.3); MONO # 0.4 10*3/uL (0.1-1.0); MONO % 5.4 % (3.0-9.0); NEUT # 4.3 10*3/uL (2.3-7.9); NEUT % 57.8 % (47.0-73.0); PLATELET COUNT AUTOMATED 236 10*3/uL (130-400); RED BLOOD COUNT 4.15 10*6/uL (4.10-5.10); RED CELL DISTRI WIDTH 18.8 % (0-14.5); WHITE BLOOD COUNT 7.4 10*3/uL (4.8-10.8)
[2019-05-23 06:38] LABS: ACT PARTIAL THROMBO TIME 25.5 SECONDS (20.0-32.1)
[2019-05-23 07:01] LABS: BUN 8 mg/dl (7-24); CHLORIDE 107 mmol/L (98-107); CHOLESTEROL 109 mg/dL (<200); CREATININE 0.74 mg/dL (0.55-1.02); PHOSPHOROUS 4.5 mg/dL (2.5-4.9); POTASSIUM 3.2 mmol/L (3.5-5.1); SODIUM 141 mmol/L (136-145); TRIGLYCERIDES 173 mg/dl (<150); VLDL CHOLESTEROL 35 mg/dL (6-40)
[2019-05-23 07:11] LABS: HDL CHOLESTEROL 36 mg/dl (40-60); LDL CHOLESTEROL 38 mg/dL (9-159)
[2019-05-23 08:00] VITALS: BP 140/70
[2019-05-23 08:36] LABS: VITAMIN D, 25-HYDROXY 30.6 ng/mL (30-100)
[2019-05-23 12:00] VITALS: BP 153/89
[2019-05-23 16:00] VITALS: BP 131/50
[2019-05-23 20:00] VITALS: BP 124/44
[2019-05-24] VITALS: BP 118/45
[2019-05-24 06:51] LABS: BASO % 0.3 % (0.0-1.0); EOS # 0.2 10*3/uL (0.0-0.4); EOS % 1.7 % (1.0-4.0); HEMATOCRIT 31.5 % (37.0-47.0); HEMOGLOBIN 9.3 g/dl (12.0-16.0); LYMPH # 2.8 10*3/uL (1.3-4.4); LYMPH % 30.5 % (27.0-41.0); MEAN CELL VOLUME 78.4 fl (81.0-99.0); MEAN CORPUSCULAR HGB 23.1 pg (27.0-31.0); MEAN CORPUSCULAR HGB CONC 29.5 g/dl (33.0-37.0); MEAN PLATELET VOLUME 10.5 fl (9.6-12.3); MONO # 0.6 10*3/uL (0.1-1.0); MONO % 6.1 % (3.0-9.0); NEUT # 5.5 10*3/uL (2.3-7.9); NEUT % 60.5 % (47.0-73.0); PLATELET COUNT AUTOMATED 217 10*3/uL (130-400); RED BLOOD COUNT 4.02 10*6/uL (4.10-5.10); RED CELL DISTRI WIDTH 18.7 % (0-14.5); WHITE BLOOD COUNT 9.2 10*3/uL (4.8-10.8)
[2019-05-24 07:00] LABS: BUN 11 mg/dl (7-24); CHLORIDE 107 mmol/L (98-107); CREATININE 0.77 mg/dL (0.55-1.02); POTASSIUM 3.7 mmol/L (3.5-5.1); SODIUM 140 mmol/L (136-145)
[2019-05-24 08:00] VITALS: BP 112/44
[2019-05-24 12:00] VITALS: BP 109/53
[2019-05-24 16:00] VITALS: BP 117/50
[2019-05-24 20:00] VITALS: BP 132/75
[2019-05-25] VITALS: BP 136/77
[2019-05-25 06:41] LABS: BASO % 0.4 % (0.0-1.0); EOS # 0.4 10*3/uL (0.0-0.4); HEMATOCRIT 37.4 % (37.0-47.0); HEMOGLOBIN 10.9 g/dl (12.0-16.0); LYMPH # 2.6 10*3/uL (1.3-4.4); LYMPH % 30.6 % (27.0-41.0); MEAN CELL VOLUME 79.2 fl (81.0-99.0); MEAN CORPUSCULAR HGB 23.1 pg (27.0-31.0); MEAN CORPUSCULAR HGB CONC 29.1 g/dl (33.0-37.0); MEAN PLATELET VOLUME 10.7 fl (9.6-12.3); MONO # 0.5 10*3/uL (0.1-1.0); MONO % 5.9 % (3.0-9.0); NEUT # 4.8 10*3/uL (2.3-7.9); NEUT % 56.9 % (47.0-73.0); PLATELET COUNT AUTOMATED 280 10*3/uL (130-400); RED BLOOD COUNT 4.72 10*6/uL (4.10-5.10); RED CELL DISTRI WIDTH 18.8 % (0-14.5); WHITE BLOOD COUNT 8.4 10*3/uL (4.8-10.8)
[2019-05-25 07:01] LABS: BUN 12 mg/dl (7-24); CHLORIDE 104 mmol/L (98-107); CREATININE 0.76 mg/dL (0.55-1.02); POTASSIUM 3.9 mmol/L (3.5-5.1); SODIUM 139 mmol/L (136-145)
[2019-05-25 08:20] VITALS: BP 123/60
[2019-05-25 11:30] VITALS: BP 120/61
[2019-05-25 15:15] VITALS: BP 126/61
[2019-05-25 20:00] VITALS: BP 104/80
[2019-05-26] VITALS: BP 126/57
[2019-05-26 08:00] VITALS: BP 141/57
[2019-05-26 12:00] VITALS: BP 122/50
[2019-05-26 16:00] VITALS: BP 123/74
[2019-05-26 20:00] VITALS: BP 114/54
[2019-05-27] VITALS: BP 111/57
[2019-05-27 06:15] LABS: BASO % 0.4 % (0.0-1.0); EOS # 0.4 10*3/uL (0.0-0.4); EOS % 4.6 % (1.0-4.0); HEMATOCRIT 32.9 % (37.0-47.0); HEMOGLOBIN 9.6 g/dl (12.0-16.0); LYMPH # 2.4 10*3/uL (1.3-4.4); MEAN CELL VOLUME 79.9 fl (81.0-99.0); MEAN CORPUSCULAR HGB 23.3 pg (27.0-31.0); MEAN CORPUSCULAR HGB CONC 29.2 g/dl (33.0-37.0); MEAN PLATELET VOLUME 11.4 fl (9.6-12.3); MONO # 0.5 10*3/uL (0.1-1.0); MONO % 5.8 % (3.0-9.0); NEUT # 4.5 10*3/uL (2.3-7.9); NEUT % 56.7 % (47.0-73.0); PLATELET COUNT AUTOMATED 202 10*3/uL (130-400); RED BLOOD COUNT 4.12 10*6/uL (4.10-5.10); RED CELL DISTRI WIDTH 18.4 % (0-14.5); WHITE BLOOD COUNT 7.9 10*3/uL (4.8-10.8)
[2019-05-27 06:29] LABS: BUN 17 mg/dl (7-24); CHLORIDE 101 mmol/L (98-107); CREATININE 0.97 mg/dL (0.55-1.02); POTASSIUM 3.7 mmol/L (3.5-5.1); SODIUM 137 mmol/L (136-145)
[2019-05-27 08:00] VITALS: BP 112/51
[2019-05-27 12:00] VITALS: BP 119/50
[2019-05-27 16:00] VITALS: BP 122/61
[2019-05-27 20:00] VITALS: BP 144/60
[2019-05-28] VITALS: BP 121/53
[2019-05-28 08:00] VITALS: BP 121/48
[2019-05-28 12:00] VITALS: BP 112/73
[2019-05-28] MEDS ORDERED: METOPROLOL TAR100 M1 PO (12:30)
[2019-05-28] MEDS ORDERED: B12,B-12,B 12500 MC1 PO (12:30)
[2019-05-28] MEDS ORDERED: FUROSEMIDE40 MG PO (12:30)
== END 2019-05-28 13:20 | disposition home or self-care (01) | DRG 292 ==
LOC: ED 18:05 → EDHOLD 20:19 → 4E 20:19
PROVIDERS: Emergency Medicine; Internal Medicine; Student in an Organized Health Care Education/Training Program; ADMIT Internal Medicine
PROC: 0HBMXZZ Excision of Right Foot Skin, External Approach (ICD-10-PCS; principal; 2019-05-24)
DX: I11.0 Hypertensive heart disease with heart failure (principal); E87.2 Acidosis; I50.33 Acute on chronic diastolic (congestive) heart failure; G89.29 Other chronic pain; M54.5 Low back pain; K76.0 Fatty (change of) liver, not elsewhere classified; F51.01 Primary insomnia; E11.65 Type 2 diabetes mellitus with hyperglycemia; E87.6 Hypokalemia; E11.42 Type 2 diabetes mellitus with diabetic polyneuropathy; E78.5 Hyperlipidemia, unspecified; D50.9 Iron deficiency anemia, unspecified; Z96.651 Presence of right artificial knee joint; E11.51 Type 2 diabetes mellitus with diabetic peripheral angiopathy without gangrene; E53.8 Deficiency of other specified B group vitamins; E11.621 Type 2 diabetes mellitus with foot ulcer; L97.519 Non-pressure chronic ulcer of other part of right foot with unspecified severity; R23.4 Changes in skin texture; I70.209 Unspecified atherosclerosis of native arteries of extremities, unspecified extremity; R07.9 Chest pain, unspecified; K21.9 Gastro-esophageal reflux disease without esophagitis; E66.01 Morbid (severe) obesity due to excess calories; E55.9 Vitamin D deficiency, unspecified; J44.9 Chronic obstructive pulmonary disease, unspecified; M51.37 Other intervertebral disc degeneration, lumbosacral region; F17.210 Nicotine dependence, cigarettes, uncomplicated; K31.89 Other diseases of stomach and duodenum; Z79.4 Long term (current) use of insulin; Z71.6 Tobacco abuse counseling; Z90.49 Acquired absence of other specified parts of digestive tract; Z98.891 History of uterine scar from previous surgery; Z98.51 Tubal ligation status; Z82.0 Family history of epilepsy and other diseases of the nervous system; Z82.49 Family history of ischemic heart disease and other diseases of the circulatory system; Z80.0 Family history of malignant neoplasm of digestive organs; Z83.3 Family history of diabetes mellitus; Z79.82 Long term (current) use of aspirin; Z79.899 Other long term (current) drug therapy; Z79.891 Long term (current) use of opiate analgesic; Z68.34 Body mass index [BMI] 34.0-34.9, adult

== ENCOUNTER → 2019-12-10 | Outpatient (CLI) | payer MEDICARE, BC ==
[~2019-12-10] MED LIST changes: +FUROSEMIDE40 MG PO; +METOPROLOL TAR100 M1 PO
== END | disposition home or self-care (01) ==
LOC: MAMMO 10-17 13:30
DX: N64.4 Mastodynia (principal)

== ENCOUNTER 2021-03-05 19:45 | Inpatient (IN) | payer OTHER ==
[~2021-03-05] VITALS: Ht 167.6 cm; Wt 103.1 kg
[2021-03-05 20:01] VITALS: BP 134/45
[2021-03-05 21:42] LABS: BASO % 0.2 % (0.0-1.0); EOS # 0.3 10*3/uL (0.0-0.4); EOS % 3.3 % (1.0-4.0); HEMATOCRIT 35.4 % (37.0-47.0); LYMPH # 2.5 10*3/uL (1.3-4.4); LYMPH % 29.1 % (27.0-41.0); MEAN CELL VOLUME 88.9 fl (81.0-99.0); MEAN CORPUSCULAR HGB 28.9 pg (27.0-31.0); MEAN CORPUSCULAR HGB CONC 32.5 g/dl (33.0-37.0); MEAN PLATELET VOLUME 10.3 fl (9.6-12.3); MONO # 0.4 10*3/uL (0.1-1.0); MONO % 4.7 % (3.0-9.0); NEUT # 5.4 10*3/uL (2.3-7.9); PLATELET COUNT AUTOMATED 189 10*3/uL (130-400); RED BLOOD COUNT 3.98 10*6/uL (4.10-5.10); RED CELL DISTRI WIDTH 14.5 % (0-14.5); WHITE BLOOD COUNT 8.7 10*3/uL (4.8-10.8)
[2021-03-05 22:04] LABS: ACT PARTIAL THROMBO TIME 26.8 SECONDS (20.0-32.1)
[2021-03-05 22:05] LABS: ALBUMIN 3.3 gm/dl (3.1-4.5); ALKALINE PHOSPHATASE 91 U/L (45-117); BUN 20 mg/dl (7-24); CHLORIDE 109 mmol/L (98-107); CREATININE 1.35 mg/dL (0.55-1.02); LIPASE 216 U/L (73-393); POTASSIUM 3.7 mmol/L (3.5-5.1); SGOT/AST 14 IU/L (3-35); SGPT/ALT 25 U/L (12-78); SODIUM 139 mmol/L (136-145); TOTAL PROTEIN 6.7 gm/dL (6.4-8.2)
[2021-03-05 22:13] LABS: TROPONIN I < 0.015 ng/ml (<0.045)
[2021-03-05 22:26] LABS: BILIRUBIN Negative (Negative); BLOOD Negative (Negative); CLARITY Clear (Clear); COLOR Yellow (Yellow); GLUCOSE Negative (Negative); KETONE Negative (Negative); LEUKO ESTERASE 1+ (Negative); NITRITE Negative (Negative); UROBILINOGEN 0.2 E.U./dl (0.0-1.0)
[2021-03-05 22:47] LABS: BACTERIA 1+; MUCOUS 1+; WBC 16-20 wbc/hpf (0-5)
[2021-03-05 23:43] VITALS: BP 116/45
[2021-03-06] VITALS (7 sets, daily range): BP systolic 103–139; BP diastolic 40–64
[2021-03-06 04:31] LABS: BASO % 0.3 % (0.0-1.0); EOS # 0.3 10*3/uL (0.0-0.4); EOS % 4.1 % (1.0-4.0); HEMATOCRIT 35.7 % (37.0-47.0); LYMPH # 2.4 10*3/uL (1.3-4.4); LYMPH % 33.2 % (27.0-41.0); MEAN CELL VOLUME 91.3 fl (81.0-99.0); MEAN CORPUSCULAR HGB 28.6 pg (27.0-31.0); MEAN CORPUSCULAR HGB CONC 31.4 g/dl (33.0-37.0); MEAN PLATELET VOLUME 10.9 fl (9.6-12.3); MONO # 0.4 10*3/uL (0.1-1.0); MONO % 5.3 % (3.0-9.0); NEUT # 4.1 10*3/uL (2.3-7.9); NEUT % 56.1 % (47.0-73.0); PLATELET COUNT AUTOMATED 184 10*3/uL (130-400); RED BLOOD COUNT 3.91 10*6/uL (4.10-5.10); RED CELL DISTRI WIDTH 14.6 % (0-14.5); WHITE BLOOD COUNT 7.4 10*3/uL (4.8-10.8)
[2021-03-06 04:49] LABS: CREATININE 1.23 mg/dL (0.55-1.02); POTASSIUM 3.7 mmol/L (3.5-5.1)
[2021-03-07] VITALS: BP 105/53
[2021-03-07 06:30] LABS: BASO % 0.4 % (0.0-1.0); EOS # 0.3 10*3/uL (0.0-0.4); EOS % 3.5 % (1.0-4.0); HEMATOCRIT 36.9 % (37.0-47.0); LYMPH # 2.2 10*3/uL (1.3-4.4); LYMPH % 30.1 % (27.0-41.0); MEAN CELL VOLUME 90.9 fl (81.0-99.0); MEAN CORPUSCULAR HGB 28.1 pg (27.0-31.0); MEAN CORPUSCULAR HGB CONC 30.9 g/dl (33.0-37.0); MONO # 0.4 10*3/uL (0.1-1.0); MONO % 4.8 % (3.0-9.0); NEUT # 4.4 10*3/uL (2.3-7.9); NEUT % 60.4 % (47.0-73.0); PLATELET COUNT AUTOMATED 193 10*3/uL (130-400); RED BLOOD COUNT 4.06 10*6/uL (4.10-5.10); RED CELL DISTRI WIDTH 14.6 % (0-14.5); WHITE BLOOD COUNT 7.2 10*3/uL (4.8-10.8)
[2021-03-07 06:42] LABS: CREATININE 1.17 mg/dL (0.55-1.02); POTASSIUM 4.1 mmol/L (3.5-5.1)
[2021-03-07 08:09] VITALS: BP 119/52
[2021-03-07 11:17] VITALS: BP 115/52
[2021-03-07 15:56] VITALS: BP 120/64
[2021-03-07 20:00] VITALS: BP 121/56
[2021-03-08] VITALS: BP 109/49
[2021-03-08 07:30] LABS: BUN 17 mg/dl (7-24); CHLORIDE 108 mmol/L (98-107); POTASSIUM 3.9 mmol/L (3.5-5.1); SODIUM 138 mmol/L (136-145)
[2021-03-08 08:00] VITALS: BP 123/52
[2021-03-08 12:00] VITALS: BP 118/69
[2021-03-08 16:00] VITALS: BP 108/56
[2021-03-08 20:00] VITALS: BP 105/57
[2021-03-09] VITALS: BP 143/54
[2021-03-09 06:55] LABS: BUN 17 mg/dl (7-24); CHLORIDE 104 mmol/L (98-107); POTASSIUM 4.1 mmol/L (3.5-5.1); SODIUM 138 mmol/L (136-145)
[2021-03-09 06:56] LABS: CREATININE 1.08 mg/dL (0.55-1.02)
[2021-03-09 08:00] VITALS: BP 138/63
[2021-03-09 12:00] VITALS: BP 113/60
[2021-03-09 16:00] VITALS: BP 102/45
[2021-03-09 20:00] VITALS: BP 132/53
[2021-03-10] VITALS: BP 130/64
[2021-03-10 06:20] LABS: BASO % 0.3 % (0.0-1.0); EOS # 0.3 10*3/uL (0.0-0.4); HEMATOCRIT 36.6 % (37.0-47.0); LYMPH % 29.1 % (27.0-41.0); MEAN CELL VOLUME 93.1 fl (81.0-99.0); MEAN CORPUSCULAR HGB 28.8 pg (27.0-31.0); MEAN CORPUSCULAR HGB CONC 30.9 g/dl (33.0-37.0); MEAN PLATELET VOLUME 11.4 fl (9.6-12.3); MONO # 0.4 10*3/uL (0.1-1.0); MONO % 6.1 % (3.0-9.0); NEUT % 58.5 % (47.0-73.0); PLATELET COUNT AUTOMATED 187 10*3/uL (130-400); RED BLOOD COUNT 3.93 10*6/uL (4.10-5.10); RED CELL DISTRI WIDTH 14.3 % (0-14.5); WHITE BLOOD COUNT 6.8 10*3/uL (4.8-10.8)
[2021-03-10 06:36] LABS: BUN 18 mg/dl (7-24); CHLORIDE 102 mmol/L (98-107); POTASSIUM 3.9 mmol/L (3.5-5.1); SODIUM 137 mmol/L (136-145)
[2021-03-10 08:00] VITALS: BP 130/59
[2021-03-10] MEDS ORDERED: Lasix80 MG PO (11:45)
[2021-03-10 12:00] VITALS: BP 135/63
[2021-03-12] MEDS ORDERED: MAGNESIUM400 MG PO (13:33)
== END 2021-03-10 12:30 | disposition home or self-care (01) | DRG 205 ==
LOC: ED 19:45 → EDHOLD 23:18 → 5E 23:18
PROVIDERS: Family Medicine; Physician Assistant; Registered Nurse; Student in an Organized Health Care Education/Training Program; ADMIT Internal Medicine; ATTEND Internal Medicine
DX: M94.0 Chondrocostal junction syndrome [Tietze] (principal); N17.0 Acute kidney failure with tubular necrosis; I50.33 Acute on chronic diastolic (congestive) heart failure; E87.2 Acidosis; I11.0 Hypertensive heart disease with heart failure; E11.65 Type 2 diabetes mellitus with hyperglycemia; E87.8 Other disorders of electrolyte and fluid balance, not elsewhere classified; J44.9 Chronic obstructive pulmonary disease, unspecified; E78.5 Hyperlipidemia, unspecified; K21.9 Gastro-esophageal reflux disease without esophagitis; R79.82 Elevated C-reactive protein (CRP); E66.01 Morbid (severe) obesity due to excess calories; G89.29 Other chronic pain; Z96.651 Presence of right artificial knee joint; M51.37 Other intervertebral disc degeneration, lumbosacral region; E11.40 Type 2 diabetes mellitus with diabetic neuropathy, unspecified; M54.9 Dorsalgia, unspecified; F17.210 Nicotine dependence, cigarettes, uncomplicated; Z71.6 Tobacco abuse counseling; Z90.49 Acquired absence of other specified parts of digestive tract; Z98.891 History of uterine scar from previous surgery; Z82.0 Family history of epilepsy and other diseases of the nervous system; Z82.49 Family history of ischemic heart disease and other diseases of the circulatory system; Z83.3 Family history of diabetes mellitus; Z80.9 Family history of malignant neoplasm, unspecified; Z98.51 Tubal ligation status; Z79.899 Other long term (current) drug therapy; Z91.19 Patient's noncompliance with other medical treatment and regimen; Z68.35 Body mass index [BMI] 35.0-35.9, adult

== ENCOUNTER 2021-09-15 14:55 | Emergency (ER) | payer OTHER ==
[~2021-09-15] VITALS: Ht 167.6 cm; Wt 97.5 kg
[~2021-09-15 14:55] MED LIST changes: +Lasix80 MG PO; +MAGNESIUM400 MG PO
== END 2021-09-15 17:00 | disposition left against medical advice (07) ==
LOC: ED 14:55
DX: M54.50 Low back pain, unspecified (principal); Z53.21 Procedure and treatment not carried out due to patient leaving prior to being seen by health care provider

== ENCOUNTER → 2022-05-31 | Outpatient (CLI) | payer OTHER ==
[2022-05-31 15:30] LABS: BASO % 0.3 % (0.0-1.0); EOS # 0.4 10*3/uL (0.0-0.4); LYMPH # 3.1 10*3/uL (1.3-4.4); LYMPH % 26.5 % (27.0-41.0); MEAN CELL VOLUME 93.1 fl (81.0-99.0); MEAN CORPUSCULAR HGB 29.7 pg (27.0-31.0); MEAN CORPUSCULAR HGB CONC 31.8 g/dl (33.0-37.0); MEAN PLATELET VOLUME 10.2 fl (9.6-12.3); MONO # 0.6 10*3/uL (0.1-1.0); MONO % 5.1 % (3.0-9.0); NEUT # 7.6 10*3/uL (2.3-7.9); NEUT % 64.3 % (47.0-73.0); PLATELET COUNT AUTOMATED 254 10*3/uL (130-400); RED BLOOD COUNT 4.08 10*6/uL (4.10-5.10); RED CELL DISTRI WIDTH 15.8 % (0-14.5); RETICULOCYTE % 1.59 % (0.50-2.50); WHITE BLOOD COUNT 11.8 10*3/uL (4.8-10.8)
[2022-05-31 15:51] LABS: CREATININE 2.07 mg/dL (0.55-1.02); POTASSIUM 4.6 mmol/L (3.5-5.1); TOTAL PROTEIN 6.8 gm/dL (6.4-8.2)
[2022-05-31 15:56] LABS: THYROID STIM HORMONE (HS) 1.3 uIU/ml (0.358-4.75)
[2022-05-31 16:12] LABS: FERRITIN 23.2 ng/mL (10.0-291.0); VITAMIN D, 25-HYDROXY 19.4 ng/mL (30-100)
[2022-05-31 17:38] LABS: BILIRUBIN Negative (Negative); BLOOD Negative (Negative); CLARITY Clear (Clear); COLOR Yellow (Yellow); GLUCOSE Negative (Negative); KETONE Negative (Negative); LEUKO ESTERASE Trace (Negative); NITRITE Negative (Negative); SPECIFIC GRAVITY 1.015 (1.001-1.030); UROBILINOGEN 0.2 E.U./dl (0.0-1.0)
[2022-05-31 18:00] LABS: BACTERIA 1+; HYALINE CAST 0-2
== END | disposition home or self-care (01) ==
LOC: LAB 15:03
PROVIDERS: ATTEND Family Medicine
DX: E78.5 Hyperlipidemia, unspecified (principal); E55.9 Vitamin D deficiency, unspecified; R79.89 Other specified abnormal findings of blood chemistry; R53.83 Other fatigue; R74.8 Abnormal levels of other serum enzymes

== ENCOUNTER → 2022-06-24 | Outpatient (CLI) | payer OTHER ==
[2022-06-24 15:46] LABS: BASO % 0.4 % (0.0-1.0); EOS # 0.4 10*3/uL (0.0-0.4); EOS % 3.3 % (1.0-4.0); HEMATOCRIT 37.4 % (37.0-47.0); LYMPH % 26.4 % (27.0-41.0); MEAN CELL VOLUME 95.4 fl (81.0-99.0); MEAN CORPUSCULAR HGB 30.6 pg (27.0-31.0); MEAN CORPUSCULAR HGB CONC 32.1 g/dl (33.0-37.0); MEAN PLATELET VOLUME 10.7 fl (9.6-12.3); MONO # 0.6 10*3/uL (0.1-1.0); MONO % 5.1 % (3.0-9.0); NEUT # 7.3 10*3/uL (2.3-7.9); NEUT % 63.6 % (47.0-73.0); PLATELET COUNT AUTOMATED 258 10*3/uL (130-400); RED BLOOD COUNT 3.92 10*6/uL (4.10-5.10); RED CELL DISTRI WIDTH 15.2 % (0-14.5); WHITE BLOOD COUNT 11.4 10*3/uL (4.8-10.8)
[2022-06-24 15:53] LABS: BILIRUBIN Negative (Negative); BLOOD Negative (Negative); CLARITY Clear (Clear); COLOR Yellow (Yellow); GLUCOSE Negative (Negative); KETONE Negative (Negative); LEUKO ESTERASE 1+ (Negative); NITRITE Negative (Negative); UROBILINOGEN 0.2 E.U./dl (0.0-1.0)
[2022-06-24 16:06] LABS: URINE CREATININE RANDOM 93.8 mg/dL
[2022-06-24 16:12] LABS: BACTERIA 1+; EPITHELIAL CELLS 0-2
[2022-06-24 16:20] LABS: CREATININE 1.72 mg/dL (0.55-1.02); POTASSIUM 4.6 mmol/L (3.5-5.1)
== END | disposition home or self-care (01) ==
LOC: LAB 15:01
PROVIDERS: ATTEND Internal Medicine Nephrology
DX: N17.9 Acute kidney failure, unspecified (principal); Z79.899 Other long term (current) drug therapy

== ENCOUNTER 2024-01-21 18:40 | Emergency (ER) | payer OTHER ==
[~2024-01-21] VITALS: Ht 167.6 cm; Wt 90.7 kg
[~2024-01-21 18:40] MED LIST changes: +OMNICEF300 MG PO; +PREDNISONE50 MG PO; +PROVENTIL HFA6.7 GM INH; +ZITHROMAX250 MG PO
[2024-01-21] MEDS ORDERED: Dexamethasone Sodium Phospha 20 MG/5 ML VIAL IV ONE (19:00)
[2024-01-21] MEDS ORDERED: FUROSEMIDE 40 MG/4 ML VIAL IV ONE (19:00)
[2024-01-21] MEDS ORDERED: Albuterol Sulf/Ipratropium 3 ML VIAL NEB ONE (19:00)
[2024-01-21 19:12] LABS: BASO % 0.4 % (0.0-1.0); EOS # 0.3 10*3/uL (0.0-0.4); EOS % 3.2 % (1.0-4.0); LYMPH # 2.4 10*3/uL (1.3-4.4); LYMPH % 29.1 % (27.0-41.0); MEAN CELL VOLUME 94.4 fl (81.0-99.0); MEAN CORPUSCULAR HGB 29.3 pg (27.0-31.0); MEAN PLATELET VOLUME 9.2 fl (9.6-12.3); MONO # 0.5 10*3/uL (0.1-1.0); MONO % 5.8 % (3.0-9.0); NEUT # 4.9 10*3/uL (2.3-7.9); NEUT % 60.3 % (47.0-73.0); PLATELET COUNT AUTOMATED 253 10*3/uL (130-400); RED BLOOD COUNT 4.13 10*6/uL (4.10-5.10); RED CELL DISTRI WIDTH 16.1 % (0-14.5); WHITE BLOOD COUNT 8.1 10*3/uL (4.8-10.8)
[2024-01-21 19:28] LABS: POTASSIUM 4.7 mmol/L (3.4-5.1)
[2024-01-21] MEDS ORDERED: PREDNISONE50 MG PO (20:34)
== END 2024-01-21 20:20 | disposition home or self-care (01) ==
LOC: ED 18:40
PROVIDERS: Physician Assistant Medical
DX: I50.9 Heart failure, unspecified (principal); I11.0 Hypertensive heart disease with heart failure; J44.9 Chronic obstructive pulmonary disease, unspecified; K21.9 Gastro-esophageal reflux disease without esophagitis; E78.5 Hyperlipidemia, unspecified; E11.9 Type 2 diabetes mellitus without complications; M19.90 Unspecified osteoarthritis, unspecified site; Z87.442 Personal history of urinary calculi; E78.00 Pure hypercholesterolemia, unspecified; Z90.49 Acquired absence of other specified parts of digestive tract; Z98.890 Other specified postprocedural states; Z96.651 Presence of right artificial knee joint; Z98.51 Tubal ligation status; F17.200 Nicotine dependence, unspecified, uncomplicated

== ENCOUNTER 2024-02-23 19:30 | Emergency (ER) | payer OTHER ==
[~2024-02-23] VITALS: Ht 167.6 cm; Wt 97.5 kg
[2024-02-23 20:13] LABS: BASO % 0.3 % (0.0-1.0); EOS # 0.2 10*3/uL (0.0-0.4); EOS % 3.3 % (1.0-4.0); HEMATOCRIT 33.8 % (37.0-47.0); LYMPH # 1.6 10*3/uL (1.3-4.4); LYMPH % 24.4 % (27.0-41.0); MEAN CELL VOLUME 94.7 fl (81.0-99.0); MEAN CORPUSCULAR HGB CONC 31.7 g/dl (33.0-37.0); MEAN PLATELET VOLUME 9.1 fl (9.6-12.3); MONO # 0.3 10*3/uL (0.1-1.0); MONO % 4.7 % (3.0-9.0); NEUT # 4.2 10*3/uL (2.3-7.9); NEUT % 65.3 % (47.0-73.0); PLATELET COUNT AUTOMATED 212 10*3/uL (130-400); RED BLOOD COUNT 3.57 10*6/uL (4.10-5.10); RED CELL DISTRI WIDTH 16.5 % (0-14.5); WHITE BLOOD COUNT 6.4 10*3/uL (4.8-10.8)
[2024-02-23 20:34] LABS: POTASSIUM 4.1 mmol/L (3.4-5.1); TOTAL PROTEIN 6.4 gm/dL (6.0-8.0)
[2024-02-23] MEDS ORDERED: BUMETANIDE 1 MG/4 ML VIAL IV ONE (20:45)
== END 2024-02-24 00:40 | disposition home or self-care (01) ==
LOC: ED 19:30
PROVIDERS: Internal Medicine
DX: R60.0 Localized edema (principal); I50.9 Heart failure, unspecified; D64.9 Anemia, unspecified; E11.22 Type 2 diabetes mellitus with diabetic chronic kidney disease; I13.0 Hypertensive heart and chronic kidney disease with heart failure and stage 1 through stage 4 chronic kidney disease, or unspecified chronic kidney disease; N18.32 Chronic kidney disease, stage 3b; M19.90 Unspecified osteoarthritis, unspecified site; J44.9 Chronic obstructive pulmonary disease, unspecified; E78.00 Pure hypercholesterolemia, unspecified; E11.40 Type 2 diabetes mellitus with diabetic neuropathy, unspecified; Z87.442 Personal history of urinary calculi; Z90.49 Acquired absence of other specified parts of digestive tract; Z98.890 Other specified postprocedural states; Z96.651 Presence of right artificial knee joint; Z98.51 Tubal ligation status; F17.200 Nicotine dependence, unspecified, uncomplicated

== ENCOUNTER 2024-05-20 00:10 | Inpatient (IN) | payer OTHER ==
[2024-05-20] VITALS (13 sets, daily range): BP systolic 90–111; BP diastolic 33–68
[~2024-05-20] VITALS: Ht 172.7 cm; Wt 103.4 kg
[2024-05-20] MEDS ORDERED: Diltiazem Hydrochloride 25 MG/5 ML VIAL IV ONE (00:20)
[2024-05-20 00:50] LABS: BASO % 0.3 % (0.0-1.0); EOS # 0.3 10*3/uL (0.0-0.4); EOS % 3.9 % (1.0-4.0); HEMATOCRIT 39.8 % (37.0-47.0); LYMPH # 1.9 10*3/uL (1.3-4.4); LYMPH % 21.8 % (27.0-41.0); MEAN CELL VOLUME 95.2 fl (81.0-99.0); MEAN CORPUSCULAR HGB 29.4 pg (27.0-31.0); MEAN CORPUSCULAR HGB CONC 30.9 g/dl (33.0-37.0); MEAN PLATELET VOLUME 9.9 fl (9.6-12.3); MONO # 0.4 10*3/uL (0.1-1.0); MONO % 4.9 % (3.0-9.0); NEUT # 5.9 10*3/uL (2.3-7.9); NEUT % 68.3 % (47.0-73.0); PLATELET COUNT AUTOMATED 204 10*3/uL (130-400); RED BLOOD COUNT 4.18 10*6/uL (4.10-5.10); RED CELL DISTRI WIDTH 15.8 % (0-14.5); WHITE BLOOD COUNT 8.6 10*3/uL (4.8-10.8)
[2024-05-20 01:10] LABS: POTASSIUM 3.8 mmol/L (3.4-5.1); TOTAL PROTEIN 6.6 gm/dL (6.0-8.0)
[2024-05-20] MEDS ORDERED: Metoprolol Tartrate 5 MG/5 ML VIAL IV ONE ×2 (01:20→02:00)
[2024-05-20] MEDS ORDERED: BUMETANIDE 1 MG/4 ML VIAL IV ONE (02:00)
[2024-05-20] MEDS ORDERED: HEPARIN SODIUM 250 ML IV SCH (03:00)
[2024-05-20] MEDS ORDERED: Diltiazem Hydrochloride 125 ML IV SCH (04:20)
[2024-05-20] MEDS ORDERED: DEXTROSE 10 % IN WATER 250 ML IV PRN (05:00)
[2024-05-20] MEDS ORDERED: Magnesium Hydroxide 30 ML UDC PO PRN (05:00)
[2024-05-20] MEDS ORDERED: ACETAMINOPHEN 650 MG SUPP R PRN (05:00)
[2024-05-20] MEDS ORDERED: MORPHINE Sulfate 2 MG/ML SYR IV PRN (05:00)
[2024-05-20] MEDS ORDERED: Ondansetron Hydrochloride 4 MG/2 ML VIAL IV PRN (05:00)
[2024-05-20] MEDS ORDERED: BISACODYL 10 MG SUPP R PRN (05:00)
[2024-05-20] MEDS ORDERED: Acetaminophen/Hydrocodone 5 MG/325 MG TABLET PO PRN (05:00)
[2024-05-20] MEDS ORDERED: TEMAZEPAM 15 MG CAP PO PRN (05:00)
[2024-05-20] MEDS ORDERED: BISACODYL 5 MG TAB PO PRN (05:00)
[2024-05-20] MEDS ORDERED: ACETAMINOPHEN 325 MG TAB PO PRN (05:00)
[2024-05-20] MEDS ORDERED: ASPIRIN 325 MG TAB PO ONE (05:05)
[2024-05-20 06:40] LABS: BASO % 0.3 % (0.0-1.0); EOS # 0.3 10*3/uL (0.0-0.4); EOS % 2.9 % (1.0-4.0); HEMATOCRIT 37.9 % (37.0-47.0); LYMPH # 2.4 10*3/uL (1.3-4.4); LYMPH % 22.7 % (27.0-41.0); MEAN CELL VOLUME 93.3 fl (81.0-99.0); MEAN CORPUSCULAR HGB CONC 32.2 g/dl (33.0-37.0); MEAN PLATELET VOLUME 10.1 fl (9.6-12.3); MONO # 0.5 10*3/uL (0.1-1.0); MONO % 4.5 % (3.0-9.0); NEUT # 7.1 10*3/uL (2.3-7.9); NEUT % 68.9 % (47.0-73.0); PLATELET COUNT AUTOMATED 214 10*3/uL (130-400); RED BLOOD COUNT 4.06 10*6/uL (4.10-5.10); RED CELL DISTRI WIDTH 15.8 % (0-14.5); WHITE BLOOD COUNT 10.3 10*3/uL (4.8-10.8)
[2024-05-20 07:21] LABS: FREE T4 1.05 ng/dl (0.89-1.76); POTASSIUM 4.2 mmol/L (3.4-5.1); TOTAL PROTEIN 6.3 gm/dL (6.0-8.0)
[2024-05-20] MEDS ORDERED: INSULIN LISPRO 1 UNIT/0.01 ML SQ SCH (07:30)
[2024-05-20 07:34] LABS: VITAMIN D, 25-HYDROXY 35.2 ng/mL (30-100)
[2024-05-20] MEDS ORDERED: SODIUM CHLORIDE 0.9% 1,000 ML IV ONE (07:55)
[2024-05-20] MEDS ORDERED: Amiodarone Hydrochloride 150 MG,IV 1 EA in DEXTROSE 5% 100 ML IV ONE (07:55)
[2024-05-20] MEDS ORDERED: Amiodarone Hydrochloride 900 MG in DEXTROSE 5% 500 ML IV SCH (07:55)
[2024-05-20] MEDS ORDERED: DIGOXIN 125 MCG TAB PO ONE (07:55)
[2024-05-20] MEDS ORDERED: Technetium Tc 99M Tetrofosmi 0.23 MG KIT IJ SCH (11:55)
[2024-05-20] MEDS ORDERED: NITROGLYCERIN 0.4 MG BOT SL PRN (12:40)
[2024-05-20] MEDS ORDERED: ALBUTEROL 8 GM INHALER INH PRN (16:55)
[2024-05-20] MEDS ORDERED: Cyclobenzaprine Hydrochlorid 10 MG TAB PO PRN (16:55)
[2024-05-20] MEDS ORDERED: NICOTINE POLACRILEX 4 MG GUM PO PRN (17:00)
[2024-05-20] MEDS ORDERED: Albuterol Sulfate 2.5 MG/3 ML VIAL NEB PRN (17:05)
[2024-05-20] MEDS ORDERED: ATORVASTATIN CALCIUM 80 MG TAB PO SCH ×2 (18:00→22:00)
[2024-05-20] MEDS ORDERED: GABAPENTIN 300 MG CAP PO SCH (22:00)
[2024-05-20] MEDS ORDERED: Metoprolol Tartrate 25 MG TAB PO SCH (22:00)
[2024-05-21] VITALS: BP 103/44
[2024-05-21 04:00] VITALS: BP 106/45
[2024-05-21] MEDS ORDERED: Regadenoson 0.4 MG/5 ML SYR IV ONE (05:54)
[2024-05-21 08:45] VITALS: BP 94/69
[2024-05-21 08:47] LABS: BASO % 0.3 % (0.0-1.0); EOS # 0.3 10*3/uL (0.0-0.4); EOS % 3.8 % (1.0-4.0); HEMATOCRIT 37.2 % (37.0-47.0); LYMPH # 1.4 10*3/uL (1.3-4.4); LYMPH % 18.1 % (27.0-41.0); MEAN CELL VOLUME 95.6 fl (81.0-99.0); MEAN CORPUSCULAR HGB 29.6 pg (27.0-31.0); MEAN CORPUSCULAR HGB CONC 30.9 g/dl (33.0-37.0); MEAN PLATELET VOLUME 9.8 fl (9.6-12.3); MONO # 0.3 10*3/uL (0.1-1.0); MONO % 4.3 % (3.0-9.0); NEUT # 5.5 10*3/uL (2.3-7.9); NEUT % 72.7 % (47.0-73.0); PLATELET COUNT AUTOMATED 175 10*3/uL (130-400); RED BLOOD COUNT 3.89 10*6/uL (4.10-5.10); RED CELL DISTRI WIDTH 15.9 % (0-14.5); WHITE BLOOD COUNT 7.6 10*3/uL (4.8-10.8)
[2024-05-21 09:12] LABS: POTASSIUM 4.4 mmol/L (3.4-5.1); TOTAL PROTEIN 6.9 gm/dL (6.0-8.0)
[2024-05-21] MEDS ORDERED: BUMETANIDE 1 MG/4 ML VIAL IV SCH (10:00)
[2024-05-21] MEDS ORDERED: ASPIRIN ENTERIC COATED 81 MG TAB PO SCH (10:00)
[2024-05-21 12:00] VITALS: BP 146/73
[2024-05-21 16:00] VITALS: BP 115/41
[2024-05-21] MEDS ORDERED: FUROSEMIDE 40 MG TAB PO SCH (19:55)
[2024-05-21 20:00] VITALS: BP 140/53
[2024-05-21] MEDS ORDERED: HEPARIN SODIUM 5,000 UNIT/ML VIAL SC SCH (22:00)
[2024-05-22] VITALS: BP 116/49
[2024-05-22 04:00] VITALS: BP 107/62
[2024-05-22 05:48] LABS: POTASSIUM 3.7 mmol/L (3.4-5.1)
[2024-05-22] MEDS ORDERED: Pantoprazole Sodium 40 MG TAB PO SCH (06:00)
[2024-05-22 06:16] LABS: BASO % 0.5 % (0.0-1.0); EOS # 0.3 10*3/uL (0.0-0.4); EOS % 4.2 % (1.0-4.0); HEMATOCRIT 34.7 % (37.0-47.0); LYMPH # 1.6 10*3/uL (1.3-4.4); LYMPH % 26.1 % (27.0-41.0); MEAN CORPUSCULAR HGB 30.1 pg (27.0-31.0); MEAN CORPUSCULAR HGB CONC 32.6 g/dl (33.0-37.0); MEAN PLATELET VOLUME 10.2 fl (9.6-12.3); MONO # 0.4 10*3/uL (0.1-1.0); MONO % 6.1 % (3.0-9.0); NEUT # 3.7 10*3/uL (2.3-7.9); NEUT % 62.1 % (47.0-73.0); PLATELET COUNT AUTOMATED 168 10*3/uL (130-400); RED BLOOD COUNT 3.75 10*6/uL (4.10-5.10); RED CELL DISTRI WIDTH 15.6 % (0-14.5); WHITE BLOOD COUNT 5.9 10*3/uL (4.8-10.8)
[2024-05-22 07:02] LABS: MEAN CELL VOLUME 92.5 fl (81.0-99.0)
[2024-05-22 08:00] VITALS: BP 134/60
[2024-05-22] MEDS ORDERED: FUROSEMIDE 40 MG/4 ML VIAL IV SCH (10:00)
[2024-05-22] MEDS ORDERED: APIXABAN 5 MG TAB PO SCH (10:00)
[2024-05-22] MEDS ORDERED: ELIQUIS5 M1 PO (12:09)
[2024-05-22] MEDS ORDERED: LOPRESSOR25 MG PO (12:09)
[2024-05-22] MEDS ORDERED: PHARMASSURE V500 MCG PO (12:09)
[2024-05-22] MEDS ORDERED: ATORVASTATIN CA80 M1 PO (12:09)
[2024-05-22] MEDS ORDERED: ASPIRIN ADULT L81 M2 PO (12:09)
[2024-05-22] MEDS ORDERED: LASIX40 MG PO (12:14)
[2024-05-23] MEDS ORDERED: CYANOCOBALAMIN 500 MCG TAB PO SCH (10:00)
== END 2024-05-22 14:11 | disposition home or self-care (01) | DRG 280 ==
LOC: ED 00:10 → EDHOLD 04:39 → ICCU 04:39
PROVIDERS: Internal Medicine; Student in an Organized Health Care Education/Training Program; ADMIT Internal Medicine; ATTEND Internal Medicine
PROC: 4A02XM4 Measurement of Cardiac Total Activity, External Approach (ICD-10-PCS; principal; 2024-05-21)
PROC: 3E073KZ Introduction of Other Diagnostic Substance into Coronary Artery, Percutaneous Approach (ICD-10-PCS; 2024-05-21)
DX: I21.4 Non-ST elevation (NSTEMI) myocardial infarction (principal); I50.33 Acute on chronic diastolic (congestive) heart failure; N17.0 Acute kidney failure with tubular necrosis; E87.1 Hypo-osmolality and hyponatremia; N18.4 Chronic kidney disease, stage 4 (severe); I13.0 Hypertensive heart and chronic kidney disease with heart failure and stage 1 through stage 4 chronic kidney disease, or unspecified chronic kidney disease; F17.210 Nicotine dependence, cigarettes, uncomplicated; J42 Unspecified chronic bronchitis; E78.2 Mixed hyperlipidemia; E53.8 Deficiency of other specified B group vitamins; K21.9 Gastro-esophageal reflux disease without esophagitis; E11.65 Type 2 diabetes mellitus with hyperglycemia; E11.22 Type 2 diabetes mellitus with diabetic chronic kidney disease; E11.42 Type 2 diabetes mellitus with diabetic polyneuropathy; Z96.651 Presence of right artificial knee joint; N95.0 Postmenopausal bleeding; I48.0 Paroxysmal atrial fibrillation; Z98.891 History of uterine scar from previous surgery; Z79.4 Long term (current) use of insulin; Z90.49 Acquired absence of other specified parts of digestive tract; Z80.0 Family history of malignant neoplasm of digestive organs; Z82.0 Family history of epilepsy and other diseases of the nervous system; Z82.49 Family history of ischemic heart disease and other diseases of the circulatory system; Z71.6 Tobacco abuse counseling

== ENCOUNTER 2024-08-21 00:50 | Inpatient (IN) | payer OTHER ==
[~2024-08-21] VITALS: Ht 167.6 cm; Wt 111.6 kg
[~2024-08-21 00:50] MED LIST changes: +ASPIRIN ADULT L81 M2 PO; +ATORVASTATIN CA80 M1 PO; +ELIQUIS5 M1 PO; +LASIX40 MG PO; +LOPRESSOR25 MG PO; +PHARMASSURE V500 MCG PO
[2024-08-21 01:00] VITALS: BP 93/51
[2024-08-21 01:09] LABS: BASO % 0.4 % (0.0-1.0); EOS # 0.3 10*3/uL (0.0-0.4); EOS % 4.7 % (1.0-4.0); HEMATOCRIT 35.1 % (37.0-47.0); MEAN CELL VOLUME 91.4 fl (81.0-99.0); MEAN CORPUSCULAR HGB 27.1 pg (27.0-31.0); MEAN CORPUSCULAR HGB CONC 29.6 g/dl (33.0-37.0); MONO # 0.6 10*3/uL (0.1-1.0); MONO % 8.1 % (3.0-9.0); NEUT # 4.2 10*3/uL (2.3-7.9); NEUT % 59.5 % (47.0-73.0); PLATELET COUNT AUTOMATED 236 10*3/uL (130-400); RED BLOOD COUNT 3.84 10*6/uL (4.10-5.10); RED CELL DISTRI WIDTH 16.6 % (0-14.5); WHITE BLOOD COUNT 7.1 10*3/uL (4.8-10.8)
[2024-08-21 01:31] LABS: POTASSIUM 4.3 mmol/L (3.4-5.1); TOTAL PROTEIN 6.8 gm/dL (6.0-8.0)
[2024-08-21] MEDS ORDERED: HYDROmorphONE Hydrochloride 0.5 MG/0.5 ML SYRINGE IV ONE (03:55)
[2024-08-21] MEDS ORDERED: Ondansetron Hydrochloride 4 MG/2 ML VIAL IV ONE (03:55)
[2024-08-21] MEDS ORDERED: HORIZANT600 M1 PO (04:00)
[2024-08-21] MEDS ORDERED: DIGOXIN 500 MCG/2 ML AMP IV ONE ×2 (04:20→09:25)
[2024-08-21] MEDS ORDERED: BISACODYL 10 MG SUPP R PRN (04:30)
[2024-08-21] MEDS ORDERED: Acetaminophen/Hydrocodone 5 MG/325 MG TABLET PO PRN (04:30)
[2024-08-21] MEDS ORDERED: Ondansetron Hydrochloride 4 MG/2 ML VIAL IV PRN (04:30)
[2024-08-21] MEDS ORDERED: Magnesium Hydroxide 30 ML UDC PO PRN (04:30)
[2024-08-21] MEDS ORDERED: TEMAZEPAM 15 MG CAP PO PRN (04:30)
[2024-08-21] MEDS ORDERED: ACETAMINOPHEN 325 MG TAB PO PRN (04:30)
[2024-08-21] MEDS ORDERED: BISACODYL 5 MG TAB PO PRN (04:30)
[2024-08-21] MEDS ORDERED: ACETAMINOPHEN 650 MG SUPP R PRN (04:30)
[2024-08-21] MEDS ORDERED: Levalbuterol Hydrochloride 1.25 MG VIAL NEB PRN (05:15)
[2024-08-21] MEDS ORDERED: Diltiazem Hydrochloride 25 MG/5 ML VIAL IV ONE (05:35)
[2024-08-21] MEDS ORDERED: fentaNYL CITRATE 100 MCG/2 ML VIAL IV ONE (05:40)
[2024-08-21 06:03] LABS: BASO % 0.3 % (0.0-1.0); EOS # 0.4 10*3/uL (0.0-0.4); EOS % 4.5 % (1.0-4.0); HEMATOCRIT 32.7 % (37.0-47.0); MEAN CELL VOLUME 89.1 fl (81.0-99.0); MEAN CORPUSCULAR HGB 27.2 pg (27.0-31.0); MEAN CORPUSCULAR HGB CONC 30.6 g/dl (33.0-37.0); MEAN PLATELET VOLUME 10.2 fl (9.6-12.3); MONO # 0.5 10*3/uL (0.1-1.0); MONO % 6.8 % (3.0-9.0); NEUT # 4.5 10*3/uL (2.3-7.9); NEUT % 58.1 % (47.0-73.0); PLATELET COUNT AUTOMATED 228 10*3/uL (130-400); RED BLOOD COUNT 3.67 10*6/uL (4.10-5.10); RED CELL DISTRI WIDTH 16.5 % (0-14.5); WHITE BLOOD COUNT 7.8 10*3/uL (4.8-10.8)
[2024-08-21 06:04] LABS: POTASSIUM 4.6 mmol/L (3.4-5.1)
[2024-08-21] MEDS ORDERED: HEPARIN SODIUM 250 ML IV SCH (06:10)
[2024-08-21] MEDS ORDERED: ASPIRIN, CHEWABLE 81 MG TAB PO ONE (06:15)
[2024-08-21] MEDS ORDERED: DEXTROSE 10 % IN WATER 250 ML IV PRN (06:20)
[2024-08-21 06:49] LABS: ACT PARTIAL THROMBO TIME 27.9 SECONDS (20.0-32.1)
[2024-08-21] MEDS ORDERED: INSULIN LISPRO 1 UNIT/0.01 ML SQ SCH (07:30)
[2024-08-21 08:00] VITALS: BP 90/58
[2024-08-21] MEDS ORDERED: GUAIFENESIN 600 MG TAB ER PO SCH (10:00)
[2024-08-21] MEDS ORDERED: AZITHROMYCIN 250 ML IV SCH (10:00)
[2024-08-21] MEDS ORDERED: Ceftriaxone Sodium 1 GM in SYRINGE INFUSION 10 ML IV SCH (10:00)
[2024-08-21] MEDS ORDERED: GABAPENTIN 600 MG TAB PO SCH (14:00)
[2024-08-21 17:03] VITALS: BP 122/54
[2024-08-21] MEDS ORDERED: ATORVASTATIN CALCIUM 80 MG TAB PO SCH (22:00)
[2024-08-21 22:05] VITALS: BP 126/73
[2024-08-21] MEDS ORDERED: LASIX20 MG PO (22:59)
[2024-08-21] MEDS ORDERED: Metoprolol Tartrate 100 MG TAB PO SCH (23:05)
[2024-08-22] VITALS: BP 114/77
[2024-08-22 06:20] LABS: BASO % 0.3 % (0.0-1.0); EOS # 0.4 10*3/uL (0.0-0.4); EOS % 4.2 % (1.0-4.0); HEMATOCRIT 34.1 % (37.0-47.0); MEAN CELL VOLUME 90.9 fl (81.0-99.0); MEAN CORPUSCULAR HGB CONC 30.8 g/dl (33.0-37.0); MEAN PLATELET VOLUME 10.8 fl (9.6-12.3); MONO # 0.5 10*3/uL (0.1-1.0); MONO % 5.6 % (3.0-9.0); NEUT # 5.9 10*3/uL (2.3-7.9); NEUT % 64.4 % (47.0-73.0); PLATELET COUNT AUTOMATED 247 10*3/uL (130-400); RED BLOOD COUNT 3.75 10*6/uL (4.10-5.10); RED CELL DISTRI WIDTH 16.7 % (0-14.5); WHITE BLOOD COUNT 9.2 10*3/uL (4.8-10.8)
[2024-08-22 07:42] LABS: POTASSIUM 4.3 mmol/L (3.4-5.1)
[2024-08-22 08:00] VITALS: BP 140/77
[2024-08-22] MEDS ORDERED: ASPIRIN ENTERIC COATED 81 MG TAB PO SCH (10:00)
[2024-08-22] MEDS ORDERED: CYANOCOBALAMIN 100 MCG TAB PO SCH (10:00)
[2024-08-22 12:00] VITALS: BP 130/60
[2024-08-22 16:00] VITALS: BP 130/70
[2024-08-22 20:00] VITALS: BP 120/51; BP 129/66
[2024-08-22] MEDS ORDERED: Benzocaine/Menthol 1 LOZ LOZENGE PO PRN (20:25)
[2024-08-22] MEDS ORDERED: APIXABAN 5 MG TAB PO SCH (22:00)
[2024-08-22] MEDS ORDERED: ZOLPIDEM TARTRATE 10 MG TAB PO SCH (22:00)
[2024-08-23] VITALS: BP 136/39
[2024-08-23 07:13] LABS: POTASSIUM 4.1 mmol/L (3.4-5.1)
[2024-08-23 08:00] VITALS: BP 123/52
[2024-08-23] MEDS ORDERED: methylPREDNISolone sod succ 125 MG VIAL IV SCH (10:00)
[2024-08-23 12:00] VITALS: BP 139/61
[2024-08-23 16:00] VITALS: BP 140/50
[2024-08-23 20:00] VITALS: BP 123/50
[2024-08-24] VITALS: BP 125/45
[2024-08-24 06:32] LABS: POTASSIUM 5.2 mmol/L (3.4-5.1)
[2024-08-24 08:00] VITALS: BP 112/36
[2024-08-24] MEDS ORDERED: FUROSEMIDE 40 MG/4 ML VIAL IV ONE (11:55)
[2024-08-24 12:00] VITALS: BP 124/44
[2024-08-24 16:00] VITALS: BP 114/51
[2024-08-24 20:00] VITALS: BP 116/58
[2024-08-25] VITALS: BP 126/49
[2024-08-25 00:50] VITALS: BP 123/43
[2024-08-25 06:21] LABS: POTASSIUM 4.8 mmol/L (3.4-5.1)
[2024-08-25 08:00] VITALS: BP 128/65
[2024-08-25] MEDS ORDERED: FUROSEMIDE 40 MG/4 ML VIAL IV SCH (10:00)
[2024-08-25 12:00] VITALS: BP 137/49
[2024-08-25 16:00] VITALS: BP 119/44
[2024-08-25 20:00] VITALS: BP 136/56
[2024-08-26] VITALS: BP 136/49
[2024-08-26 06:32] LABS: HEMATOCRIT 29.6 % (37.0-47.0); MEAN CELL VOLUME 90.5 fl (81.0-99.0); MEAN CORPUSCULAR HGB 27.2 pg (27.0-31.0); MEAN CORPUSCULAR HGB CONC 30.1 g/dl (33.0-37.0); MEAN PLATELET VOLUME 10.5 fl (9.6-12.3); PLATELET COUNT AUTOMATED 206 10*3/uL (130-400); RED BLOOD COUNT 3.27 10*6/uL (4.10-5.10); RED CELL DISTRI WIDTH 16.5 % (0-14.5); WHITE BLOOD COUNT 13.9 10*3/uL (4.8-10.8)
[2024-08-26 06:41] LABS: MANUAL DIFF REFLEX YES
[2024-08-26 07:21] LABS: TOTAL CELLS COUNTED 100 #CELLS
[2024-08-26 07:22] LABS: OVALOCYTES FEW; PLATELET SUFFICIENCY NORMAL (NORMAL)
[2024-08-26 08:00] VITALS: BP 130/51
[2024-08-26] MEDS ORDERED: BUMETANIDE 1 MG/4 ML VIAL IV SCH ×2 (10:00→18:00)
[2024-08-26 12:00] VITALS: BP 140/50
[2024-08-26 16:00] VITALS: BP 136/48
[2024-08-26 20:00] VITALS: BP 130/62
[2024-08-27] VITALS: BP 125/43
[2024-08-27] MEDS ORDERED: NYSTATIN 15 GM BOT T SCH (06:00)
[2024-08-27 06:25] LABS: POTASSIUM 4.8 mmol/L (3.4-5.1)
[2024-08-27 06:33] LABS: HEMATOCRIT 27.8 % (37.0-47.0); MEAN CELL VOLUME 89.4 fl (81.0-99.0); MEAN CORPUSCULAR HGB 27.3 pg (27.0-31.0); MEAN CORPUSCULAR HGB CONC 30.6 g/dl (33.0-37.0); MEAN PLATELET VOLUME 11.3 fl (9.6-12.3); NUCLEATED RED BLOOD CELL 0.2 % (0.0-0.0); PLATELET COUNT AUTOMATED 198 10*3/uL (130-400); RED BLOOD COUNT 3.11 10*6/uL (4.10-5.10); RED CELL DISTRI WIDTH 16.5 % (0-14.5); WHITE BLOOD COUNT 14.4 10*3/uL (4.8-10.8)
[2024-08-27 06:37] LABS: MANUAL DIFF REFLEX YES
[2024-08-27 07:38] LABS: OVALOCYTES FEW; PLATELET SUFFICIENCY NORMAL (NORMAL); POLYCHROMASIA SLIGHT; SCHISTOCYTES FEW; TOTAL CELLS COUNTED 100 #CELLS
[2024-08-27 08:00] VITALS: BP 130/56
[2024-08-27] MEDS ORDERED: ZITHROMAX250 MG PO (09:10)
[2024-08-27] MEDS ORDERED: METOPROLOL TAR100 M1 PO (09:10)
[2024-08-27] MEDS ORDERED: VITAMIN B-12100 MCG PO (09:10)
[2024-08-27] MEDS ORDERED: ATORVASTATIN CA80 M1 PO (09:10)
[2024-08-27] MEDS ORDERED: PREDNISONE10 MG PO (09:10)
[2024-08-27] MEDS ORDERED: MUCUS RELIEF E600 MG PO (09:10)
[2024-08-27 12:00] VITALS: BP 128/54
[2024-08-27] MEDS ORDERED: BUMETANIDE1 MG PO (12:28)
== END 2024-08-27 11:55 | disposition home or self-care (01) | DRG 280 ==
LOC: ED 00:50 → EDHOLD 04:00 → 4E 04:00 → EDHOLD 16:02 → 4E 19:36
PROVIDERS: Internal Medicine; Occupational Therapist; Student in an Organized Health Care Education/Training Program; ADMIT Internal Medicine; ATTEND Internal Medicine
DX: I21.4 Non-ST elevation (NSTEMI) myocardial infarction (principal); I50.33 Acute on chronic diastolic (congestive) heart failure; N17.0 Acute kidney failure with tubular necrosis; J15.9 Unspecified bacterial pneumonia; I13.0 Hypertensive heart and chronic kidney disease with heart failure and stage 1 through stage 4 chronic kidney disease, or unspecified chronic kidney disease; J44.0 Chronic obstructive pulmonary disease with (acute) lower respiratory infection; I48.91 Unspecified atrial fibrillation; N18.32 Chronic kidney disease, stage 3b; I95.9 Hypotension, unspecified; E78.2 Mixed hyperlipidemia; E53.8 Deficiency of other specified B group vitamins; K21.9 Gastro-esophageal reflux disease without esophagitis; E55.9 Vitamin D deficiency, unspecified; E11.42 Type 2 diabetes mellitus with diabetic polyneuropathy; Z96.651 Presence of right artificial knee joint; E11.22 Type 2 diabetes mellitus with diabetic chronic kidney disease; D64.9 Anemia, unspecified; F17.210 Nicotine dependence, cigarettes, uncomplicated; Z71.6 Tobacco abuse counseling; Z79.4 Long term (current) use of insulin; Z98.891 History of uterine scar from previous surgery; Z90.49 Acquired absence of other specified parts of digestive tract; Z82.49 Family history of ischemic heart disease and other diseases of the circulatory system; Z80.0 Family history of malignant neoplasm of digestive organs; Z79.899 Other long term (current) drug therapy; Z79.82 Long term (current) use of aspirin; Z79.51 Long term (current) use of inhaled steroids

== ENCOUNTER 2024-11-18 11:14 | Emergency (ER) | payer OTHER ==
[~2024-11-18] VITALS: Ht 167.6 cm; Wt 123.1 kg
[2024-11-18] VITALS (7 sets, daily range): BP systolic 82–114; BP diastolic 49–63
[~2024-11-18 11:14] MED LIST changes: +AMIODARONE HYD200 MG PO; +BETHANECHOL CHL25 MG PO; +BUMETANIDE1 MG PO; +BUMETANIDE2 MG PO; +DOCUSATE SOD100 MG PO; +HORIZANT600 M1 PO; +HUMALOG100 UNIT/1 SC; +HUMULIN 70100 UNIT/1 SQ; +HUMULIN 70100 UNIT/2 SQ; +IRON325 M1 PO; +LASIX20 MG PO; +LOSARTAN POTASS25 M1 PO; +MELATONIN3 MG PO; +MUCUS RELIEF E600 MG PO; +NATURE'S BLEND F1 MG PO; +OXYCODONE-ACET1 EAC3 PO; +PROTONIX TR40 M1 PO; +REGLAN5 MG PO; +VITAMIN B-12100 MCG PO; +VITAMIN C500 M4 PO; +Zaroxolyn,Diul2.5 MG PO
[2024-11-18 11:45] LABS: HEMATOCRIT 23.2 % (37.0-47.0); MEAN CELL VOLUME 89.6 fl (81.0-99.0); MEAN CORPUSCULAR HGB 25.1 pg (27.0-31.0); MEAN PLATELET VOLUME 9.7 fl (9.6-12.3); PLATELET COUNT AUTOMATED 226 10*3/uL (130-400); RED BLOOD COUNT 2.59 10*6/uL (4.10-5.10); RED CELL DISTRI WIDTH 18.5 % (0-14.5); WHITE BLOOD COUNT 6.3 10*3/uL (4.8-10.8)
[2024-11-18 11:49] LABS: MANUAL DIFF REFLEX YES
[2024-11-18 12:00] LABS: ACT PARTIAL THROMBO TIME 30.8 SECONDS (20.0-32.1)
[2024-11-18 12:10] LABS: POTASSIUM 4.8 mmol/L (3.4-5.1)
[2024-11-18 12:11] LABS: TOTAL CELLS COUNTED 100 #CELLS
[2024-11-18 12:12] LABS: PLATELET SUFFICIENCY NORMAL (NORMAL)
[2024-11-18] MEDS ORDERED: SODIUM CHLORIDE 0.9% 500 ML IV ONE (12:58)
[2024-11-18 15:58] LABS: BASO % 0.4 % (0.0-1.0); EOS # 0.3 10*3/uL (0.0-0.4); EOS % 4.3 % (1.0-4.0); HEMATOCRIT 24.9 % (37.0-47.0); MEAN CELL VOLUME 89.2 fl (81.0-99.0); MEAN CORPUSCULAR HGB 26.2 pg (27.0-31.0); MEAN CORPUSCULAR HGB CONC 29.3 g/dl (33.0-37.0); MEAN PLATELET VOLUME 9.1 fl (9.6-12.3); MONO # 0.9 10*3/uL (0.1-1.0); MONO % 12.4 % (3.0-9.0); NEUT # 4.9 10*3/uL (2.3-7.9); NEUT % 65.4 % (47.0-73.0); PLATELET COUNT AUTOMATED 247 10*3/uL (130-400); RED BLOOD COUNT 2.79 10*6/uL (4.10-5.10); RED CELL DISTRI WIDTH 17.5 % (0-14.5); WHITE BLOOD COUNT 7.5 10*3/uL (4.8-10.8)
== END 2024-11-18 17:25 | disposition home or self-care (01) ==
LOC: ED 11:14
PROVIDERS: Internal Medicine
DX: D64.9 Anemia, unspecified (principal); M19.90 Unspecified osteoarthritis, unspecified site; J44.9 Chronic obstructive pulmonary disease, unspecified; I11.0 Hypertensive heart disease with heart failure; I50.9 Heart failure, unspecified; E11.40 Type 2 diabetes mellitus with diabetic neuropathy, unspecified; E78.00 Pure hypercholesterolemia, unspecified; Z87.442 Personal history of urinary calculi; Z90.49 Acquired absence of other specified parts of digestive tract; Z96.651 Presence of right artificial knee joint; Z98.890 Other specified postprocedural states; Z87.891 Personal history of nicotine dependence

== ENCOUNTER 2024-11-20 09:44 | Inpatient (IN) | payer OTHER ==
[~2024-11-20] VITALS: Ht 167.6 cm; Wt 117.2 kg
[2024-11-20 10:08] VITALS: BP 117/41
[2024-11-20 10:08] LABS: BASO % 0.1 % (0.0-1.0); EOS # 0.2 10*3/uL (0.0-0.4); EOS % 1.8 % (1.0-4.0); HEMATOCRIT 25.8 % (37.0-47.0); MEAN CELL VOLUME 90.5 fl (81.0-99.0); MEAN CORPUSCULAR HGB 26.3 pg (27.0-31.0); MEAN CORPUSCULAR HGB CONC 29.1 g/dl (33.0-37.0); MEAN PLATELET VOLUME 9.2 fl (9.6-12.3); MONO # 0.6 10*3/uL (0.1-1.0); MONO % 6.9 % (3.0-9.0); NEUT # 7.7 10*3/uL (2.3-7.9); NEUT % 84.3 % (47.0-73.0); PLATELET COUNT AUTOMATED 239 10*3/uL (130-400); RED BLOOD COUNT 2.85 10*6/uL (4.10-5.10); RED CELL DISTRI WIDTH 17.9 % (0-14.5); WHITE BLOOD COUNT 9.1 10*3/uL (4.8-10.8)
[2024-11-20] MEDS ORDERED: BUMETANIDE 1 MG/4 ML VIAL IV ONE (10:45)
[2024-11-20 12:00] VITALS: BP 123/50
[2024-11-20] MEDS ORDERED: Ondansetron Hydrochloride 4 MG/2 ML VIAL IV PRN (12:15)
[2024-11-20] MEDS ORDERED: TEMAZEPAM 15 MG CAP PO PRN (12:15)
[2024-11-20] MEDS ORDERED: BISACODYL 10 MG SUPP R PRN (12:15)
[2024-11-20] MEDS ORDERED: ACETAMINOPHEN 650 MG SUPP R PRN (12:15)
[2024-11-20] MEDS ORDERED: Magnesium Hydroxide 30 ML UDC PO PRN (12:15)
[2024-11-20] MEDS ORDERED: ACETAMINOPHEN 325 MG TAB PO PRN (12:15)
[2024-11-20] MEDS ORDERED: BISACODYL 5 MG TAB PO PRN (12:15)
[2024-11-20] MEDS ORDERED: Technetium Tc 99M MacroAg Albu 1 KIT KIT IV SCH (12:50)
[2024-11-20] MEDS ORDERED: Lopressor25 MG PO (12:50)
[2024-11-20] MEDS ORDERED: NEURONTIN300 MG PO (12:57)
[2024-11-20] MEDS ORDERED: BUDESONIDE0.5 MG/2 M INH (12:57)
[2024-11-20] MEDS ORDERED: ATORVASTATIN CA40 M1 PO (13:01)
[2024-11-20] MEDS ORDERED: ONDANSETRON HYDR4 MG PO (13:06)
[2024-11-20] MEDS ORDERED: ALDACTONE25 MG PO (13:06)
[2024-11-20] MEDS ORDERED: DEXTROSE 10 % IN WATER 250 ML IV PRN (15:05)
[2024-11-20] MEDS ORDERED: BUDESONIDE 0.5 MG AMP NEB SCH (16:07)
[2024-11-20] MEDS ORDERED: INSULIN LISPRO 1 UNIT/0.01 ML SQ SCH (16:30)
[2024-11-20] MEDS ORDERED: PROPOFOL 50 ML IV SCH (16:40)
[2024-11-20] MEDS ORDERED: GABAPENTIN 300 MG CAP PO SCH (18:00)
[2024-11-20] MEDS ORDERED: FUROSEMIDE 40 MG/4 ML VIAL IV SCH (18:00)
[2024-11-20] MEDS ORDERED: APIXABAN 5 MG TAB PO SCH (18:00)
[2024-11-20 20:07] VITALS: BP 120/47
[2024-11-20 22:00] VITALS: BP 101/62
[2024-11-20] MEDS ORDERED: ATORVASTATIN CALCIUM 40 MG TABLET PO SCH (22:00)
[2024-11-20] MEDS ORDERED: ASCORBIC ACID 500 MG TAB PO SCH (22:00)
[2024-11-20] MEDS ORDERED: Metoprolol Tartrate 25 MG TAB PO SCH (22:00)
[2024-11-21] VITALS (14 sets, daily range): BP systolic 107–146; BP diastolic 44–74
[2024-11-21] MEDS ORDERED: Acetaminophen/Oxycodone 5 MG/325 MG TABLET PO PRN (00:20)
[2024-11-21 05:49] LABS: ALKALINE PHOSPHATASE 73 U/L (46-116); BUN 33 mg/dl (9-23); CHLORIDE 98 mmol/L (98-107); POTASSIUM 4.6 mmol/L (3.4-5.1); TOTAL PROTEIN 5.5 gm/dL (6.0-8.0)
[2024-11-21 05:53] LABS: SGPT/ALT < 7 U/L (5-49)
[2024-11-21 06:07] LABS: MEAN CELL VOLUME 91.3 fl (81.0-99.0); MEAN CORPUSCULAR HGB 26.1 pg (27.0-31.0); MEAN CORPUSCULAR HGB CONC 28.6 g/dl (33.0-37.0); PLATELET COUNT AUTOMATED 218 10*3/uL (130-400); RED BLOOD COUNT 2.41 10*6/uL (4.10-5.10); RED CELL DISTRI WIDTH 18.3 % (0-14.5); WHITE BLOOD COUNT 5.3 10*3/uL (4.8-10.8)
[2024-11-21 06:23] LABS: MANUAL DIFF REFLEX YES
[2024-11-21 07:11] LABS: BASOPHILS 1 % (0-1); OVALOCYTES FEW; POLYCHROMASIA SLIGHT; TOTAL CELLS COUNTED 100 #CELLS
[2024-11-21 07:12] LABS: PLATELET SUFFICIENCY NORMAL (NORMAL)
[2024-11-21] MEDS ORDERED: Pantoprazole Sodium 40 MG TAB PO SCH (07:30)
[2024-11-21] MEDS ORDERED: SODIUM CHLORIDE 0.9% 500 ML IV ONE (09:36)
[2024-11-21] MEDS ORDERED: Amiodarone Hydrochloride 200 MG TAB PO SCH (10:00)
[2024-11-21] MEDS ORDERED: SPIRONOLACTONE 25 MG TAB PO SCH (10:00)
[2024-11-21] MEDS ORDERED: FOLIC ACID 1 MG TAB PO SCH (10:00)
[2024-11-21] MEDS ORDERED: POTASSIUM CHLORIDE 20 MEQ TAB PO SCH (10:00)
[2024-11-21 17:16] LABS: BASO % 0.2 % (0.0-1.0); EOS # 0.4 10*3/uL (0.0-0.4); EOS % 6.1 % (1.0-4.0); MEAN CELL VOLUME 89.2 fl (81.0-99.0); MEAN CORPUSCULAR HGB 26.1 pg (27.0-31.0); MEAN CORPUSCULAR HGB CONC 29.3 g/dl (33.0-37.0); MEAN PLATELET VOLUME 8.9 fl (9.6-12.3); MONO # 0.5 10*3/uL (0.1-1.0); MONO % 9.2 % (3.0-9.0); NEUT # 3.8 10*3/uL (2.3-7.9); NEUT % 66.8 % (47.0-73.0); PLATELET COUNT AUTOMATED 229 10*3/uL (130-400); RED BLOOD COUNT 3.14 10*6/uL (4.10-5.10); RED CELL DISTRI WIDTH 17.9 % (0-14.5); WHITE BLOOD COUNT 5.7 10*3/uL (4.8-10.8)
[2024-11-22] VITALS: BP 111/53
[2024-11-22 07:46] LABS: BASO % 0.2 % (0.0-1.0); EOS # 0.4 10*3/uL (0.0-0.4); EOS % 7.3 % (1.0-4.0); HEMATOCRIT 27.5 % (37.0-47.0); MEAN CELL VOLUME 89.3 fl (81.0-99.0); MEAN CORPUSCULAR HGB 26.3 pg (27.0-31.0); MEAN CORPUSCULAR HGB CONC 29.5 g/dl (33.0-37.0); MEAN PLATELET VOLUME 9.5 fl (9.6-12.3); MONO # 0.5 10*3/uL (0.1-1.0); MONO % 10.1 % (3.0-9.0); NEUT % 59.9 % (47.0-73.0); PLATELET COUNT AUTOMATED 244 10*3/uL (130-400); RED BLOOD COUNT 3.08 10*6/uL (4.10-5.10); RED CELL DISTRI WIDTH 18.2 % (0-14.5); WHITE BLOOD COUNT 4.9 10*3/uL (4.8-10.8)
[2024-11-22 08:00] VITALS: BP 115/50
[2024-11-22 08:22] LABS: POTASSIUM 4.3 mmol/L (3.4-5.1)
[2024-11-22] MEDS ORDERED: FERROUS SULFATE 325 MG TAB PO SCH (10:00)
[2024-11-22 12:00] VITALS: BP 115/52
[2024-11-22] MEDS ORDERED: HEPARIN SODIUM 250 ML IV SCH (12:05)
[2024-11-22] MEDS ORDERED: HEPARIN SODIUM 25,000 UNITS/250 ML BAG IV ONE (12:05)
[2024-11-22 16:00] VITALS: BP 124/57
[2024-11-22 20:00] VITALS: BP 126/77
[2024-11-22] MEDS ORDERED: Metoprolol Tartrate 50 MG TAB PO SCH (22:00)
[2024-11-23] VITALS: BP 97/59
[2024-11-23 07:45] LABS: BASO % 0.3 % (0.0-1.0); EOS # 0.4 10*3/uL (0.0-0.4); EOS % 6.4 % (1.0-4.0); MEAN CELL VOLUME 89.7 fl (81.0-99.0); MEAN CORPUSCULAR HGB 25.9 pg (27.0-31.0); MEAN CORPUSCULAR HGB CONC 28.9 g/dl (33.0-37.0); MEAN PLATELET VOLUME 9.4 fl (9.6-12.3); MONO # 0.6 10*3/uL (0.1-1.0); MONO % 9.5 % (3.0-9.0); NEUT # 3.6 10*3/uL (2.3-7.9); PLATELET COUNT AUTOMATED 236 10*3/uL (130-400); RED BLOOD COUNT 3.01 10*6/uL (4.10-5.10); RED CELL DISTRI WIDTH 18.1 % (0-14.5); WHITE BLOOD COUNT 5.8 10*3/uL (4.8-10.8)
[2024-11-23 08:00] VITALS: BP 102/55
[2024-11-23 08:05] LABS: POTASSIUM 4.2 mmol/L (3.4-5.1)
[2024-11-23 12:00] VITALS: BP 96/74
[2024-11-23 16:00] VITALS: BP 109/68
[2024-11-23 20:00] VITALS: BP 106/77
[2024-11-24] VITALS (8 sets, daily range): BP systolic 94–117; BP diastolic 42–79
[2024-11-24 06:05] LABS: BASO % 0.4 % (0.0-1.0); EOS # 0.3 10*3/uL (0.0-0.4); EOS % 5.8 % (1.0-4.0); HEMATOCRIT 26.9 % (37.0-47.0); MEAN CELL VOLUME 88.5 fl (81.0-99.0); MEAN CORPUSCULAR HGB CONC 29.4 g/dl (33.0-37.0); MEAN PLATELET VOLUME 9.7 fl (9.6-12.3); MONO # 0.5 10*3/uL (0.1-1.0); MONO % 8.8 % (3.0-9.0); NEUT # 3.8 10*3/uL (2.3-7.9); NEUT % 70.7 % (47.0-73.0); PLATELET COUNT AUTOMATED 226 10*3/uL (130-400); RED BLOOD COUNT 3.04 10*6/uL (4.10-5.10); RED CELL DISTRI WIDTH 17.7 % (0-14.5); WHITE BLOOD COUNT 5.4 10*3/uL (4.8-10.8)
[2024-11-24] MEDS ORDERED: Metoprolol Tartrate 50 MG TAB PO ONE (12:40)
[2024-11-24] MEDS ORDERED: METOPROLOL SUCCINATE XR 50 MG TAB PO SCH (22:00)
[2024-11-25] VITALS (12 sets, daily range): BP systolic 91–142; BP diastolic 42–97
[2024-11-25 05:13] LABS: POTASSIUM 3.9 mmol/L (3.4-5.1)
[2024-11-25 06:04] LABS: BASO % 0.4 % (0.0-1.0); EOS # 0.2 10*3/uL (0.0-0.4); EOS % 3.1 % (1.0-4.0); HEMATOCRIT 24.2 % (37.0-47.0); MEAN CELL VOLUME 87.7 fl (81.0-99.0); MEAN CORPUSCULAR HGB 25.7 pg (27.0-31.0); MEAN CORPUSCULAR HGB CONC 29.3 g/dl (33.0-37.0); MEAN PLATELET VOLUME 9.8 fl (9.6-12.3); MONO # 0.5 10*3/uL (0.1-1.0); MONO % 11.3 % (3.0-9.0); NEUT # 3.2 10*3/uL (2.3-7.9); NEUT % 66.9 % (47.0-73.0); PLATELET COUNT AUTOMATED 190 10*3/uL (130-400); RED BLOOD COUNT 2.76 10*6/uL (4.10-5.10); RED CELL DISTRI WIDTH 17.8 % (0-14.5); WHITE BLOOD COUNT 4.8 10*3/uL (4.8-10.8)
[2024-11-25] MEDS ORDERED: Amiodarone Hydrochloride 150 MG,IV 1 EA in DEXTROSE 5% 100 ML IV ONE (14:35)
[2024-11-25] MEDS ORDERED: Amiodarone Hydrochloride 900 MG in DEXTROSE 5% 500 ML IV SCH (14:45)
[2024-11-25] MEDS ORDERED: SODIUM CHLORIDE 0.9% 500 ML IV ONE (15:40)
[2024-11-25 21:10] LABS: BASO % 0.2 % (0.0-1.0); EOS # 0.2 10*3/uL (0.0-0.4); EOS % 3.4 % (1.0-4.0); HEMATOCRIT 27.6 % (37.0-47.0); MEAN CELL VOLUME 89.3 fl (81.0-99.0); MEAN CORPUSCULAR HGB 26.5 pg (27.0-31.0); MEAN CORPUSCULAR HGB CONC 29.7 g/dl (33.0-37.0); MEAN PLATELET VOLUME 9.1 fl (9.6-12.3); MONO # 0.5 10*3/uL (0.1-1.0); MONO % 9.9 % (3.0-9.0); NEUT # 3.7 10*3/uL (2.3-7.9); NEUT % 71.2 % (47.0-73.0); PLATELET COUNT AUTOMATED 180 10*3/uL (130-400); RED BLOOD COUNT 3.09 10*6/uL (4.10-5.10); RED CELL DISTRI WIDTH 17.3 % (0-14.5); WHITE BLOOD COUNT 5.2 10*3/uL (4.8-10.8)
[2024-11-26] VITALS (9 sets, daily range): BP systolic 99–137; BP diastolic 40–64
[2024-11-26] MEDS ORDERED: hydrOXYzine pamoate 25 MG CAP PO PRN (01:25)
[2024-11-26 06:19] LABS: BASO % 0.4 % (0.0-1.0); EOS # 0.2 10*3/uL (0.0-0.4); HEMATOCRIT 24.9 % (37.0-47.0); MEAN CELL VOLUME 89.2 fl (81.0-99.0); MEAN CORPUSCULAR HGB 26.5 pg (27.0-31.0); MEAN CORPUSCULAR HGB CONC 29.7 g/dl (33.0-37.0); MEAN PLATELET VOLUME 9.9 fl (9.6-12.3); MONO # 0.5 10*3/uL (0.1-1.0); MONO % 11.6 % (3.0-9.0); NEUT # 2.8 10*3/uL (2.3-7.9); NEUT % 61.6 % (47.0-73.0); PLATELET COUNT AUTOMATED 181 10*3/uL (130-400); RED BLOOD COUNT 2.79 10*6/uL (4.10-5.10); RED CELL DISTRI WIDTH 17.5 % (0-14.5); WHITE BLOOD COUNT 4.6 10*3/uL (4.8-10.8)
[2024-11-27] VITALS (7 sets, daily range): BP systolic 95–115; BP diastolic 44–61
[2024-11-27 05:08] LABS: POTASSIUM 3.8 mmol/L (3.4-5.1)
[2024-11-27 06:28] LABS: BASO % 0.5 % (0.0-1.0); EOS # 0.4 10*3/uL (0.0-0.4); EOS % 8.9 % (1.0-4.0); HEMATOCRIT 26.2 % (37.0-47.0); MEAN CELL VOLUME 88.2 fl (81.0-99.0); MEAN CORPUSCULAR HGB 26.6 pg (27.0-31.0); MEAN CORPUSCULAR HGB CONC 30.2 g/dl (33.0-37.0); MEAN PLATELET VOLUME 10.3 fl (9.6-12.3); MONO # 0.5 10*3/uL (0.1-1.0); MONO % 10.5 % (3.0-9.0); NEUT # 2.5 10*3/uL (2.3-7.9); NEUT % 57.7 % (47.0-73.0); PLATELET COUNT AUTOMATED 183 10*3/uL (130-400); RED BLOOD COUNT 2.97 10*6/uL (4.10-5.10); RED CELL DISTRI WIDTH 17.6 % (0-14.5); WHITE BLOOD COUNT 4.4 10*3/uL (4.8-10.8)
[2024-11-27] MEDS ORDERED: BISACODYL 5 MG TAB PO ONE (09:00)
[2024-11-27] MEDS ORDERED: Amiodarone Hydrochloride 200 MG TAB PO SCH ×2 (11:35→11:50)
[2024-11-27] MEDS ORDERED: Peg Electrolyte Lavage Solut 4,000 ML BOT PO ONE (12:00)
[2024-11-28] VITALS (10 sets, daily range): BP systolic 94–138; BP diastolic 38–78
[2024-11-28 06:53] LABS: BASO % 0.2 % (0.0-1.0); EOS # 0.4 10*3/uL (0.0-0.4); EOS % 7.2 % (1.0-4.0); HEMATOCRIT 31.4 % (37.0-47.0); MEAN CELL VOLUME 86.7 fl (81.0-99.0); MEAN CORPUSCULAR HGB CONC 29.9 g/dl (33.0-37.0); MEAN PLATELET VOLUME 9.4 fl (9.6-12.3); MONO # 0.4 10*3/uL (0.1-1.0); MONO % 7.5 % (3.0-9.0); NEUT # 4.2 10*3/uL (2.3-7.9); NEUT % 72.3 % (47.0-73.0); PLATELET COUNT AUTOMATED 195 10*3/uL (130-400); RED BLOOD COUNT 3.62 10*6/uL (4.10-5.10); RED CELL DISTRI WIDTH 17.5 % (0-14.5); WHITE BLOOD COUNT 5.9 10*3/uL (4.8-10.8)
[2024-11-28 07:35] LABS: POTASSIUM 3.6 mmol/L (3.4-5.1)
[2024-11-28] MEDS ORDERED: SODIUM CHLORIDE 0.9% 500 ML IV ONE (08:25)
[2024-11-28] MEDS ORDERED: Lidocaine Hydrochloride 2% 5 ML SDV IV ONE (10:40)
[2024-11-28] MEDS ORDERED: PROPOFOL 200 MG/20 ML VIAL IV ONE (10:40)
[2024-11-28] MEDS ORDERED: Phenylephrine Hydrochloride 1 MG/10 ML SYRINGE IV ONE (10:40)
[2024-11-28] MEDS ORDERED: AMMONIUM LACTATE 12% LOTION T SCH (22:00)
[2024-11-29] VITALS: BP 91/53
[2024-11-29 05:05] LABS: POTASSIUM 3.4 mmol/L (3.4-5.1)
[2024-11-29 06:06] LABS: BASO % 0.2 % (0.0-1.0); EOS # 0.4 10*3/uL (0.0-0.4); EOS % 8.2 % (1.0-4.0); HEMATOCRIT 27.8 % (37.0-47.0); MEAN CELL VOLUME 87.1 fl (81.0-99.0); MEAN CORPUSCULAR HGB CONC 29.9 g/dl (33.0-37.0); MEAN PLATELET VOLUME 10.2 fl (9.6-12.3); MONO # 0.3 10*3/uL (0.1-1.0); MONO % 7.5 % (3.0-9.0); NEUT # 2.8 10*3/uL (2.3-7.9); NEUT % 62.4 % (47.0-73.0); PLATELET COUNT AUTOMATED 169 10*3/uL (130-400); RED BLOOD COUNT 3.19 10*6/uL (4.10-5.10); RED CELL DISTRI WIDTH 17.3 % (0-14.5); WHITE BLOOD COUNT 4.5 10*3/uL (4.8-10.8)
[2024-11-29 08:00] VITALS: BP 101/72
[2024-11-29 12:00] VITALS: BP 108/49
[2024-11-29 16:00] VITALS: BP 126/50
[2024-11-29 20:00] VITALS: BP 117/45
[2024-11-29] MEDS ORDERED: Metoprolol Tartrate 50 MG TAB PO SCH (22:00)
[2024-11-30] VITALS: BP 109/52
[2024-11-30 07:12] LABS: POTASSIUM 3.4 mmol/L (3.4-5.1)
[2024-11-30 08:00] VITALS: BP 129/56
[2024-11-30 08:17] LABS: BASO % 0.4 % (0.0-1.0); EOS # 0.4 10*3/uL (0.0-0.4); EOS % 8.5 % (1.0-4.0); HEMATOCRIT 28.9 % (37.0-47.0); MEAN CELL VOLUME 89.5 fl (81.0-99.0); MEAN CORPUSCULAR HGB 25.7 pg (27.0-31.0); MEAN CORPUSCULAR HGB CONC 28.7 g/dl (33.0-37.0); MEAN PLATELET VOLUME 10.6 fl (9.6-12.3); MONO # 0.4 10*3/uL (0.1-1.0); MONO % 7.9 % (3.0-9.0); NEUT # 2.7 10*3/uL (2.3-7.9); NEUT % 59.9 % (47.0-73.0); PLATELET COUNT AUTOMATED 193 10*3/uL (130-400); RED BLOOD COUNT 3.23 10*6/uL (4.10-5.10); RED CELL DISTRI WIDTH 17.4 % (0-14.5); WHITE BLOOD COUNT 4.6 10*3/uL (4.8-10.8)
[2024-11-30] MEDS ORDERED: Amiodarone Hydrochloride 200 MG TAB PO SCH (10:00)
[2024-11-30 12:00] VITALS: BP 105/42
[2024-11-30] MEDS ORDERED: MASON NATURAL325 MG PO (12:28)
== END 2024-11-30 16:13 | DRG 291 ==
LOC: ED 09:44 → EDHOLD 10:51 → ICCU 10:51 → 4E 10:51 → ICCU 11-25 17:56 → 4E 11-28 00:53
PROVIDERS: Internal Medicine; Internal Medicine Cardiovascular Disease; Student in an Organized Health Care Education/Training Program; ADMIT Family Medicine; ATTEND Family Medicine
PROC: 30233N1 Transfusion of Nonautologous Red Blood Cells into Peripheral Vein, Percutaneous Approach (ICD-10-PCS; principal; 2024-11-21)
PROC: 30233N1 Transfusion of Nonautologous Red Blood Cells into Peripheral Vein, Percutaneous Approach (ICD-10-PCS; 2024-11-21)
PROC: 0DBL8ZZ Excision of Transverse Colon, Via Natural or Artificial Opening Endoscopic (ICD-10-PCS; 2024-11-28)
PROC: 0DJ08ZZ Inspection of Upper Intestinal Tract, Via Natural or Artificial Opening Endoscopic (ICD-10-PCS; 2024-11-28)
PROC: B24BZZ4 Ultrasonography of Heart with Aorta, Transesophageal (ICD-10-PCS; 2024-11-28)
DX: I13.0 Hypertensive heart and chronic kidney disease with heart failure and stage 1 through stage 4 chronic kidney disease, or unspecified chronic kidney disease (principal); E43 Unspecified severe protein-calorie malnutrition; I50.33 Acute on chronic diastolic (congestive) heart failure; E87.1 Hypo-osmolality and hyponatremia; N18.4 Chronic kidney disease, stage 4 (severe); Z68.41 Body mass index [BMI] 40.0-44.9, adult; J44.9 Chronic obstructive pulmonary disease, unspecified; E66.9 Obesity, unspecified; I48.91 Unspecified atrial fibrillation; D64.9 Anemia, unspecified; E78.5 Hyperlipidemia, unspecified; E53.8 Deficiency of other specified B group vitamins; K21.9 Gastro-esophageal reflux disease without esophagitis; E55.9 Vitamin D deficiency, unspecified; E11.22 Type 2 diabetes mellitus with diabetic chronic kidney disease; E11.65 Type 2 diabetes mellitus with hyperglycemia; E11.40 Type 2 diabetes mellitus with diabetic neuropathy, unspecified; Z96.651 Presence of right artificial knee joint; K44.9 Diaphragmatic hernia without obstruction or gangrene; I08.1 Rheumatic disorders of both mitral and tricuspid valves; Z90.49 Acquired absence of other specified parts of digestive tract; Z79.4 Long term (current) use of insulin; Z80.0 Family history of malignant neoplasm of digestive organs; Z95.2 Presence of prosthetic heart valve; Z81.8 Family history of other mental and behavioral disorders; Z79.82 Long term (current) use of aspirin; Z79.899 Other long term (current) drug therapy